=== PATIENT | female | born 1950 | race Caucasian/White ===

== ENCOUNTER → 2017-02-07 | Outpatient (CLI) | payer MEDICARE, BC ==
[2017-02-07 09:47] LABS: Bilirubin, Delta 0.2 mg/dL (0.0-0.2); Total Bilirubin 0.4 mg/dL (0.2-1.3); Total Protein 7.2 g/dL (6.3-8.2)
== END | disposition home or self-care (01) ==
LOC: LABWHC1 09:19
PROVIDERS: ATTEND Internal Medicine Interventional Cardiology
DX: E78.2 Mixed hyperlipidemia (principal)
CPT/HCPCS: 36415; 80061; 80076

== ENCOUNTER → 2017-02-26 | Outpatient (CLI) | payer MEDICARE, BC ==
--- NOTE | 2017-02-27 07:52 | MM ---
Reason for exam: screening (asymptomatic). Last mammogram was performed 1 year ago. History: Patient is postmenopausal. Took estrogen for 1 year 5 months beginning at age 54. Took progesterone for 1 year 5 months beginning at age 54. Physical Findings: A clinical breast exam by your physician is recommended on an annual basis and results should be correlated with mammographic findings. MG 3D Screening Mammo W/Cad Bilateral CC and MLO view(s) were taken. Prior study comparison: February 26, 2016, bilateral MG screening mammo w CAD. February 21, 2015, bilateral MG screening mammo w CAD. There are scattered fibroglandular densities. There is no discrete abnormality. No significant changes when compared with prior studies. ASSESSMENT: Negative, BI-RAD 1 RECOMMENDATION: Routine screening mammogram of both breasts in 1 year.
== END | disposition home or self-care (01) ==
LOC: RADMAMWWP 08:27
PROVIDERS: ATTEND Obstetrics & Gynecology
DX: Z12.31 Encounter for screening mammogram for malignant neoplasm of breast (principal)
CPT/HCPCS: 77063; G0202

== ENCOUNTER → 2017-08-01 | Outpatient (CLI) | payer MEDICARE, BC ==
[2017-08-01 08:37] LABS: Basophils % (A) 1 %; Eosinophils # (A) 0.2 k/uL (0-0.7); Eosinophils % (A) 3 %; HCT 43.7 % (34.0-46.0); HGB 14.3 gm/dL (11.4-16.0); Lymphocytes # (A) 2.5 k/uL (1.0-4.8); Lymphocytes % (A) 42 %; MCH 30.9 pg (25.0-35.0); MCHC 32.7 g/dL (31.0-37.0); MCV 94.7 fL (80.0-100.0); Mean Platelet Volume 6.7; Monocytes # (A) 0.3 k/uL (0-1.0); Monocytes % (A) 6 %; Neutrophils # (A) 2.8 k/uL (1.3-7.7); Neutrophils % (A) 46 %; Platelet Count 319 k/uL (150-450); RBC 4.62 m/uL (3.80-5.40); RDW 12.3 % (11.5-15.5); WBC 5.9 k/uL (3.8-10.6)
[2017-08-01 08:50] LABS: ALT 34 U/L (9-52); AST 32 U/L (14-36); Albumin 4.3 g/dL (3.5-5.0); Alkaline Phosphatase 80 U/L (38-126); Anion Gap 8 mmol/L; Blood Urea Nitrogen 16 mg/dL (7-17); Calcium 10.1 mg/dL (8.4-10.2); Carbon Dioxide 31 mmol/L (22-30); Chloride 105 mmol/L (98-107); Cholesterol 165 mg/dL (<200); Creatine Kinase 123 U/L (30-135); Glucose 86 mg/dL (74-99); HDL Cholesterol 63 mg/dL (40-60); LDL Cholesterol,Calculated 81 mg/dL (0-99); Potassium 5.2 mmol/L (3.5-5.1); Sodium 144 mmol/L (137-145); Total Bilirubin 0.8 mg/dL (0.2-1.3); Total Protein 6.8 g/dL (6.3-8.2); Triglycerides 106 mg/dL (<150)
== END | disposition home or self-care (01) ==
LOC: LABWHC1 07:23
PROVIDERS: ATTEND Family Medicine
DX: E78.5 Hyperlipidemia, unspecified (principal)
CPT/HCPCS: 36415; 80053; 80061; 82550; 85025

== ENCOUNTER → 2017-09-11 | Outpatient (CLI) | payer MEDICARE, BC ==
--- NOTE | 2017-09-16 10:13 | P.ARTDOP ---
Arterial Doppler LOWER EXTREMITY ARTERIAL DOPPLER: DATE OF SERVICE: 09/11/2017 Reason for study: Left leg pain. Doppler waveforms: Multiphasic bilaterally throughout. Pulse volume recording: []. Pressure gradients: None. Ankle-brachial indices: Greater than 1 bilaterally. Toe pressures: 64 on the right, 62 on the left Impression: Normal study.. Decrease in toe pressures is mild and probably related more to vasospasm.
== END | disposition home or self-care (01) ==
LOC: RADUSWWP 11:52
PROVIDERS: ATTEND Family Medicine
DX: M79.672 Pain in left foot (principal); R25.2 Cramp and spasm
CPT/HCPCS: 93922

== ENCOUNTER → 2018-02-10 | Outpatient (CLI) | payer MEDICARE, BC ==
--- NOTE | 2018-02-10 09:49 | US ---
EXAMINATION TYPE: US pelvic complete DATE OF EXAM: 02/10/2018 COMPARISON: None CLINICAL HISTORY: 68-year-old female R31.9 hematuria; recurrent UTI; total hysterectomy TECHNIQUE: Transabdominal sonographic images of the pelvis were acquired. Findings: Uterus surgically absent. Both ovaries are also surgically absent. No pelvic free fluid or adnexal ab normality. Bladder: appears wnl fully distended. Bilateral ureteral jets were seen. Post void volume is wnl at 1 2.6ml. IMPRESSION: 1. Status post hysterectomy and bilateral oophorectomies. 2. Normal appearance to the bladder. Both ureteral jets are seen. 3. Small amount of post void residual bladder volume (13 mL) which is within acceptable limits.
--- NOTE | 2018-02-10 11:14 | US ---
EXAMINATION TYPE: US kidneys/renal and bladder DATE OF EXAM: 02/10/2018 COMPARISON: None CLINICAL HISTORY: 68-year-old female R31.9 hematuria; recurrent UTI. Bladder was assessed on pelvic US. TECHNIQUE: Multiple sonographic images of the kidneys kidneys are obtained. FINDINGS: EXAM MEASUREMENTS: Right Kidney: 10.8 x 4.2 x 3.3 cm Left Kidney: 9.5 x 5.4 x 4.1 cm Right Kidney: Mild pelviectasis versus extrarenal pelvis. Left Kidney: Mild pelviectasis versus extrarenal pelvis. No jennifer calyceal dilatation to suggest hydronephrosis on either side. Bladder was evaluated on the pelvic exam. IMPRESSION: No jennifer hydronephrosis. There is mild pelviectasis versus an extrarenal pelvis on either side.
== END | disposition home or self-care (01) ==
LOC: RADUSWWP 07:04
PROVIDERS: ATTEND Family Medicine
DX: R31.9 Hematuria, unspecified (principal); Z90.710 Acquired absence of both cervix and uterus; Z90.722 Acquired absence of ovaries, bilateral
CPT/HCPCS: 76770; 76857

== ENCOUNTER → 2018-02-27 | Outpatient (CLI) | payer MEDICARE, BC ==
--- NOTE | 2018-02-27 19:37 | BD ---
EXAMINATION TYPE: Axial Bone Density DATE OF EXAM: 02/27/2018 CLINICAL HISTORY: Height: 65.25 Weight: 128 FRAX RISK QUESTIONS: Alcohol (3 or more units per day): no Family History (Parent hip fracture): yes, mother Glucocorticoids (More than 3mos): no (Ex: prednisone, prednisolone, methylprednisolone, dexamethasone, and hydrocortisone). History of Fracture in Adulthood: yes, lower leg Secondary Osteoporosis: 1. Type 1 Diabetes: no 2. Hyperthyroidism: no 3. Menopause before 45: no, 49 4. Malnutrition: no 5. Chronic liver disease: no Rheumatoid Arthritis: no Current Tobacco Use: infrequently RISK FACTORS HISTORY OF: Family History of Osteoporosis: yes Active: yes Diet low in dairy products/other sources of calcium: no Postmenopausal woman: yes Take estrogen and/or progesterone medications: no now How long: about 18 months Lost more than 2 inches in height since high school: yes, states height once may have been about 5ft 10 in Frequent falls: no Poor Health: no Hyperparathyroidism: no Adrenal Insufficiency: no MEDICATIONS: Prednisone or other steroids: no Thyroid Medications: no Osteoporosis Medications: not now Which medication: patient thinks may have had a med for this as an injection How Long: unsure Additional Medications: cholesterol meds, sometimes Vitamin D Additional History: weight loss EXAM MEASUREMENTS: Bone mineral densitometry was performed using the [employer] System. Bone mineral density as measured about the Lumbar spine is: ----- L1-L4(G/cm2): 1.198 T Score Values are as follows: ----- L2: -0.7 ----- L3: 0.9 ----- L4: 1.2 ----- L1-L4: 0.1 Bone mineral density has: Increased 0.4% since study of: 02/26/2016 Bone mineral density about the R hip (g/cm2): 0.783 Bone mineral density about the L hip (g/cm2): 0.823 T Score values are as follows: -----R Neck: -1.8 -----L Neck: -1.5 -----R Total: -1.4 -----L Total: -1.4 Bone mineral density has: Decreased -3.5% since study of: 02/26/2016 IMPRESSION: Osteopenia (T Score between -2.5 and -1). There is slightly increased risk of fracture and the patient may be considered for treatment. Re-Screen 2-5 years. NOTE: T-SCORE=SD OF THE YOUNG ADULT MEAN.
--- NOTE | 2018-03-02 11:42 | MM ---
Reason for exam: screening (asymptomatic). Last mammogram was performed 1 year ago. History: Patient is postmenopausal. Took estrogen for 1 year 5 months beginning at age 54. Took progesterone for 1 year 5 months beginning at age 54. Physical Findings: A clinical breast exam by your physician is recommended on an annual basis and results should be correlated with mammographic findings. MG 3D Screening Mammo W/Cad Bilateral CC and MLO view(s) were taken. Prior study comparison: February 26, 2017, bilateral MG 3d screening mammo w/cad. February 26, 2016, bilateral MG screening mammo w CAD. The breast tissue is heterogeneously dense. This may lower the sensitivity of mammography. No significant changes when compared with prior studies. ASSESSMENT: Benign, BI-RAD 2 RECOMMENDATION: Routine screening mammogram of both breasts in 1 year.
== END ==
LOC: RADMAMWWP 06:53
PROVIDERS: ATTEND Obstetrics & Gynecology
DX: Z12.31 Encounter for screening mammogram for malignant neoplasm of breast (principal); M85.80 Other specified disorders of bone density and structure, unspecified site
CPT/HCPCS: 77063; 77067; 77080

== ENCOUNTER → 2018-03-27 | Outpatient (CLI) | payer MEDICARE, BC ==
--- NOTE | 2018-03-30 09:26 | US ---
EXAMINATION TYPE: US venous doppler duplex LE LT DATE OF EXAM: 03/27/2018 12:16 PM COMPARISON: NONE CLINICAL HISTORY: R60.0 Localized edema. Elevated D Dimer SIDE PERFORMED: Left TECHNIQUE: The lower extremity deep venous system is examined utilizing real time linear array sonog omega with graded compression, doppler sonography and color-flow sonography. VESSELS IMAGED: External Iliac Vein (EIV) Common Femoral Vein Deep Femoral Vein Greater Saphenous Vein * Femoral Vein Popliteal Vein Small Saphenous Vein * Proximal Calf Veins (* superficial vessels Left Leg: Negative for DVT No evidence of DVT left leg. IMPRESSION: 1. Left lower extremity ultrasound negative for deep venous thrombosis.
== END | disposition home or self-care (01) ==
LOC: RADUSWWP 11:50
PROVIDERS: ATTEND Family Medicine
DX: R60.0 Localized edema (principal)

== ENCOUNTER → 2019-03-01 | Outpatient (CLI) | payer MEDICARE, BC ==
--- NOTE | 2019-03-02 11:55 | MM ---
Reason for exam: screening (asymptomatic). Last mammogram was performed 1 year ago. History: Patient is postmenopausal. Took estrogen for 1 year 5 months beginning at age 54. Took progesterone for 1 year 5 months beginning at age 54. Physical Findings: A clinical breast exam by your physician is recommended on an annual basis and results should be correlated with mammographic findings. MG 3D Screening Mammo W/Cad Bilateral CC and MLO view(s) were taken. Prior study comparison: February 27, 2018, bilateral MG 3d screening mammo w/cad. February 26, 2017, bilateral MG 3d screening mammo w/cad. The breast tissue is heterogeneously dense. This may lower the sensitivity of mammography. Finding: There is a 9 mm obscured oval mass located 5 cm from the nipple in the middle, subareolar position of the right breast. New finding since February 27, 2018 and February 26, 2017. ASSESSMENT: Incomplete: need additional imaging evaluation, BI-RAD 0 RECOMMENDATION: Ultrasound of the right breast. [facility] will attempt to contact patient to return for ultrasound.
== END | disposition home or self-care (01) ==
LOC: RADMAMWWP 07:44
PROVIDERS: ATTEND Obstetrics & Gynecology
DX: Z12.31 Encounter for screening mammogram for malignant neoplasm of breast (principal)
CPT/HCPCS: 77063; 77067

== ENCOUNTER → 2019-03-01 | Outpatient (CLI) | payer MEDICARE, BC ==
--- NOTE | 2019-03-01 13:29 | ECHOS ---
STRESS ECHOCARDIOGRAM DATE OF SERVICE: 03/01/2019 INDICATIONS: Dyspnea. MEDICATIONS: BASELINE HEART RATE: 54 BASELINE BLOOD PRESSURE: 89/58 MAXIMUM HEART RATE: 145 MAXIMUM BLOOD PRESSURE: 160/60 85% MPHR: 130 100% MPHR: 153 METS: 10.3 MAXIMUM STAGE REACHED: III TOTAL EXERCISE TIME: 9 minutes CLINICAL INFORMATION: Baseline rhythm is sinus mechanism, rate of 54, normal axis, intervals, normal electrocardiogram. Baseline blood pressure 94/58 mmHg. Patient exercised on Jaime protocol for 9 minutes reaching peak rate 145 beats per minute which is equal to 94% maximum predicted heart rate. Peak blood pressure 160/60 mmHg. Test was terminated secondary to fatigue. There was no chest pain. Electrocardiograph monitoring revealed occasional single PVCs. There was no evidence of diagnostic ischemic ST deviation. Baseline echocardiogram revealed normal wall thickening and motion. At peak exercise, there was normal wall motion augmentation with no hypokinesis or dyskinesis. CONCLUSION: 1. Good exercise tolerance with occasional single PVCs and normal electrocardiograph response to exercise. 2. Normal stress echocardiogram with no evidence of stress-induced ischemia. MMODL / IJN: [id number] /
== END | disposition home or self-care (01) ==
LOC: RADNMMAIN 08:10
PROVIDERS: ATTEND Family Medicine
DX: R06.00 Dyspnea, unspecified (principal)
CPT/HCPCS: 93351

== ENCOUNTER → 2019-03-10 | Outpatient (CLI) | payer MEDICARE, BC ==
--- NOTE | 2019-03-10 08:05 | USB ---
Reason for exam: additional evaluation requested from abnormal screening. History: Patient is postmenopausal. Took estrogen for 1 year 5 months beginning at age 54. Took progesterone for 1 year 5 months beginning at age 54. Physical Findings: Nurse did not find any significant physical abnormalities on exam. US Breast Workup Limited RT Right limited breast ultrasound including focal area of concern, retroareolar and axilla demonstrates a 0.6 x 0.6 x 0.3cm cystic lesion at 5 o'clock, a 0.3 x 0.4 x 0.3cm cystic lesion with calcification at 6 o'clock and ductal ectasia at 8 o'clock. These results were verbally communicated with the patient and result sheet given to the patient on 03/10/19. ASSESSMENT: Benign, BI-RAD 2 RECOMMENDATION: Return to routine screening mammogram schedule for both breasts.
== END | disposition home or self-care (01) ==
LOC: RADUSWWP 06:54
PROVIDERS: ATTEND Obstetrics & Gynecology
DX: R92.8 Other abnormal and inconclusive findings on diagnostic imaging of breast (principal)

== ENCOUNTER → 2019-11-02 | Outpatient (CLI) | payer MEDICARE, BC ==
--- NOTE | 2019-11-02 16:31 | US ---
EXAMINATION TYPE: US pelvis limited transvag DATE OF EXAM: 11/02/2019 COMPARISON: NONE CLINICAL HISTORY: R10.2 Pelvic perineial pain. TECHNIQUE: Transvaginal (TV) and Transabdominal (TA) . Date of LMP: Patient had complete hysterectomy/bilateral oopherectomy EXAM MEASUREMENTS: Uterus: Surgically absent Endometrial Stripe: Surgically absent Right Ovary: Surgically absent Left Ovary: Surgically absent Urinary bladder is sonolucent. Posterior wall is normal. IMPRESSION: 1. Postsurgical pelvic ultrasound. No unusual masses or collections are evident.
== END | disposition home or self-care (01) ==
LOC: RADUSWWP 14:43
PROVIDERS: ATTEND Internal Medicine
DX: Z98.890 Other specified postprocedural states (principal)
CPT/HCPCS: 76830; 76857

== ENCOUNTER 2019-12-05 08:43 | Emergency (ER) | payer MEDICARE, BC ==
[2019-12-05] MEDS ORDERED: ETODOLAC 400 MG TAB PO STA (09:53)
--- NOTE | 2019-12-05 10:02 | ED ---
Headache HPI - General Chief Complaint: Headache Stated Complaint: Neck pain Time Seen by Provider: 12/05/19 09:05 Source: patient, RN notes reviewed Mode of arrival: wheelchair Limitations: no limitations - History of Present Illness Initial Comments: This is a 69-year-old female who states she's had a headache and right neck pain for last day or so. 8/10 in severity spasm like she is not recall any injury or heavy lifting. She has no blurry vision no fevers chills or sweats. No loss of function to her upper or lower extremities no other modifying factors. No overt fevers chills sweats no rhinorrhea sore throat she states the pain radiates up to her head on the right side round the right ear. MD Complaint: headache, other - Related Data Home Medications Medication Instructions Recorded Confirmed Omeprazole 20 mg PO DAILY 12/25/15 12/25/15 Previous Rx's Medication Instructions Recorded Ketorolac [Toradol] 10 mg PO Q6HR #20 tab 12/05/19 Orphenadrine [Norflex] 100 mg PO Q12H #7 tablet.er 12/05/19 Allergies Allergy/AdvReac Type Severity Reaction Status Date / Time erythromycin base Allergy Rash/Hives Verified 12/05/19 08:53 nitrofurantoin Allergy Rash/Hives Verified 12/05/19 08:53 [From Macrobid] nitrofurantoin Allergy Rash/Hives Verified 12/05/19 08:53 macrocrystalline [From Macrobid] Sulfa (Sulfonamide Allergy Rash/Hives Verified 12/05/19 08:53 Antibiotics) Review of Systems ROS Statement: Those systems with pertinent positive or pertinent negative responses have been documented in the HPI. ROS Other: All systems not noted in ROS Statement are negative. Past Medical History Past Medical History: GERD/Reflux, Hyperlipidemia Additional Past Medical History / Comment(s): back pain History of Any Multi-Drug Resistant Organisms: None Reported Past Surgical History: Appendectomy, Hysterectomy, Tonsillectomy Additional Past Surgical History / Comment(s): rectocele Past Psychological History: No Psychological Hx Reported Smoking Status: Never smoker Past Alcohol Use History: None Reported Past Drug Use History: None Reported General Exam - General Exam Comments Initial Comments: This a well-developed well-nourished awake alert oriented 3 Limitations: no limitations General appearance: alert, anxious Head exam: Present: atraumatic, normocephalic, normal inspection Eye exam: Present: normal appearance, PERRL, EOMI. Absent: scleral icterus, conjunctival injection, periorbital swelling ENT exam: Present: normal exam, mucous membranes moist Neck exam: Present: normal inspection, tenderness, other (Tenderness palpation of the lateral neck musculature and trapezius muscle. Palpation does reproduce the pain is somewhat limited motion secondary to pain.). Absent: meningismus, lymphadenopathy Respiratory exam: Present: normal lung sounds bilaterally. Absent: respiratory distress, wheezes, rales, rhonchi, stridor Cardiovascular Exam: Present: regular rate, normal rhythm, normal heart sounds. Absent: systolic murmur, diastolic murmur, rubs, gallop, clicks Extremities exam: Present: normal inspection, full ROM, normal capillary refill. Absent: tenderness, pedal edema, joint swelling, calf tenderness Back exam: Present: normal inspection Neurological exam: Present: alert, oriented X3, CN II-XII intact Skin exam: Present: warm, dry, intact, normal color. Absent: rash Course Vital Signs 12/05/19 08:50 Temperature 99.1 F Pulse Rate 74 Respiratory 18 Rate Blood Pressure 127/78 O2 Sat by Pulse 100 Oximetry Medical Decision Making - Medical Decision Making No further workup indicated this time patient will be discharged on a regimen of NSAIDs and muscle relaxers I did recommend warm compresses. He'll follow-up with her doctor as needed and return when necessary she is in agreement with this. Disposition Clinical Impression: Trapezius muscle spasm Disposition: HOME SELF-CARE Condition: Good Instructions (If sedation given, give patient instructions): Muscle Spasm (ED) Additional Instructions: Medication prescriptions sent to your preferred pharmacy Prescriptions: Orphenadrine [Norflex] 100 mg PO Q12H #7 tablet.er Ketorolac [Toradol] 10 mg PO Q6HR #20 tab Is patient prescribed a controlled substance at d/c from ED?: No Referrals: Benjamin Cotter MD [Primary Care Provider] - 1-2 days
[2019-12-05 10:33] VITALS: BP 149/74; PULSE 67; RESP 16; TEMP 98.2
== END 2019-12-05 10:31 | disposition home or self-care (01) ==
LOC: EC 08:43
DX: M62.838 Other muscle spasm (principal); K21.9 Gastro-esophageal reflux disease without esophagitis; Z79.899 Other long term (current) drug therapy; Z88.2 Allergy status to sulfonamides; Z88.1 Allergy status to other antibiotic agents; Z88.8 Allergy status to other drugs, medicaments and biological substances
CPT/HCPCS: 99283

== ENCOUNTER → 2019-12-10 | Outpatient (CLI) | payer MEDICARE, BC ==
[2019-12-10 10:28] LABS: African American GFR (CKD) >90 (>60 ml/min/1.73 sqM); Blood Urea Nitrogen 12 mg/dL (7-17); Non-African American GFR(CKD) >90 (>60 ml/min/1.73 sqM)
--- NOTE | 2019-12-10 11:55 | CT ---
EXAMINATION TYPE: CT abdomen pelvis w con DATE OF EXAM: 12/10/2019 COMPARISON: 07/13/2010 HISTORY: Pelvic pain with frequent UTIs CT DLP: 1002 mGycm CONTRAST: CT scan of the abdomen and pelvis is performed with Oral Contrast and with IV Contrast, patient injec obey with 100 mL of Isovue 300. FINDINGS: LUNG BASES-: No visible nodule. No infiltrate. LIVER/GB: No calcified gallstones. No space occupying hepatic lesion. Biliary tree is of normal ca liber. PANCREAS: No inflammation. No distinct mass. SPLEEN: No splenic enlargement. No lesion seen. ADRENALS: No nodule. No thickening. KIDNEYS/BLADDER: No hydronephrosis. No nephrolithiasis. No distinct renal mass. Urinary bladder g rossly unremarkable. BOWEL: Normal appendix. Normal bowel caliber. No inflammation. GENITAL ORGANS: No gross abnormality. LYMPH NODES: No greater than 1cm abdominal or pelvic lymph nodes are appreciated. AORTA: No significant abnormality. OSSEOUS STRUCTURES: Severe degenerative change lumbar spine scoliosis noted. OTHER: No significant a dditional abnormality is seen. IMPRESSION: 1. Moderate fecal stasis otherwise unremarkable study. Hysterectomy changes seen.
== END | disposition home or self-care (01) ==
LOC: RADCTMAIN 09:36
PROVIDERS: ATTEND Family Medicine
DX: K59.8 Other specified functional intestinal disorders (principal); Z98.890 Other specified postprocedural states; R10.2 Pelvic and perineal pain
CPT/HCPCS: 82565; 84520; 74177; 36415; Q9967

== ENCOUNTER → 2020-03-06 | Outpatient (CLI) | payer MEDICARE, BC ==
--- NOTE | 2020-03-07 11:52 | MM ---
Reason for exam: screening (asymptomatic). Last mammogram was performed 1 year ago. History: Patient is postmenopausal. Took estrogen for 1 year 5 months beginning at age 54. Took progesterone for 1 year 5 months beginning at age 54. Physical Findings: A clinical breast exam by your physician is recommended on an annual basis and results should be correlated with mammographic findings. MG 3D Screening Mammo W/Cad Bilateral CC and MLO view(s) were taken. Prior study comparison: March 01, 2019, bilateral MG 3d screening mammo w/cad. February 27, 2018, bilateral MG 3d screening mammo w/cad. The breast tissue is heterogeneously dense. This may lower the sensitivity of mammography. Benign appearing calcifications in the right breast. There are grouped indeterminate calcifications right subareolar. ASSESSMENT: Incomplete: need additional imaging evaluation, BI-RAD 0 RECOMMENDATION: Special view mammogram of the right breast. [facility] will attempt to contact patient to return for supplemental views.
== END | disposition home or self-care (01) ==
LOC: RADMAMWWP 08:03
PROVIDERS: ATTEND Family Medicine
DX: Z12.31 Encounter for screening mammogram for malignant neoplasm of breast (principal)
CPT/HCPCS: 77063; 77067

== ENCOUNTER → 2020-03-24 | Outpatient (CLI) | payer MEDICARE, BC ==
--- NOTE | 2020-03-27 10:20 | MM ---
Reason for exam: additional evaluation requested from abnormal screening. Last mammogram was performed 1 month ago. History: Patient is postmenopausal. Took estrogen for 1 year 5 months beginning at age 54. Took progesterone for 1 year 5 months beginning at age 54. Physical Findings: Nurse did not find any significant physical abnormalities on exam. MG 3D Work Up W/Cad RT CC with magnification, LM with magnification, and LM view(s) were taken of the right breast. Prior study comparison: March 06, 2020, bilateral MG 3d screening mammo w/cad. March 01, 2019, bilateral MG 3d screening mammo w/cad. Finding: There is a 8 mm oval mass in the slight lower outer quadrant, anterior position of the right breast with group of heterogeneous calcifications persists on additional images. These results were verbally communicated with the patient and result sheet given to the patient on 03/24/20. ASSESSMENT: Suspicious, BI-RAD 4 RECOMMENDATION: Stereotactic core biopsy of the right breast. Called Dr. Cotter's office with mammographic findings. Patient request to speak with Dr. Cotter before scheduling any biopsy. Patient wanted to scheduled own appointment with Dr. Cotter. PRELIMINARY REPORT CALLED AND FAXED TO DR. COTTER ON 03/24/20.
== END | disposition home or self-care (01) ==
LOC: RADMAMWWP 09:35
PROVIDERS: ATTEND Family Medicine
DX: R92.8 Other abnormal and inconclusive findings on diagnostic imaging of breast (principal)
CPT/HCPCS: 77065; G0279; 77061

== ENCOUNTER → 2020-04-12 | Day surgery (SDC) | payer MEDICARE, BC ==
[2020-04-12 09:12] VITALS: BP 113/72; PULSE 61; RESP 18; TEMP 97.7
--- NOTE | 2020-04-12 14:31 | MM ---
EXAMINATION TYPE: MG stereo VAD BX RT DATE OF EXAM: 04/03/2020 COMPARISON: 02/26/2016 CLINICAL HISTORY: Abnormal mammogram TECHNIQUE: Stereotactic guided core biopsy of right breast. FINDINGS: The procedure of stereotactic guided core biopsy was explained to the patient. Benefits, alternatives, and risks were discussed. An informed consent was then obtained. The shortness pathway for biopsy was chosen. Shortness pathway was lateral approach. Radiology performed the targeting and procedure. 5 core biopsies were obtained. Sample: Mammographic sample demonstrates calcifications within the sample. Surgical clip was placed. Good hemostasis was obtained. Discharge instructions were discussed with the patient. The patient will follow-up with her physician for biopsy results. Postprocedure mammogram: Post biopsy mammogram shows the clip to appear in satisfactory position relative to the targeted area of concern on the preprocedure images. IMPRESSION: 1. Successful stereotactic core biopsy right breast calcifications. Recommendations: 1. Recommendations are pending pathology results. Pathology Results: High Risk RIGHT BREAST, NEEDLE CORE BIOPSY: Intraductal papillomatosis with apocrine metaplasia. Focal microscopic intraductal calcifications are identified. Recommendation Surgical consult of the right breast. SKY
== END ==
LOC: RADMAMWWP 07:10
PROVIDERS: ATTEND Family Medicine
DX: N60.11 Diffuse cystic mastopathy of right breast (principal); N60.81 Other benign mammary dysplasias of right breast
CPT/HCPCS: 88305; 19081; A4648

== ENCOUNTER → 2020-07-06 | Outpatient (CLI) | payer MEDICARE, BC ==
[2020-07-06 17:04] LABS: African American GFR (CKD) 87.8 (60.0-200.0); Albumin 4.8 g/dL (3.80-4.90); Albumin/Globulin Ratio 2.82 (1.60-3.17); Anion Gap 9.4 mmol/L (4.00-12.00); BUN/Creat Ratio 16.25 Ratio (12.00-20.00); Calcium 9.9 mg/dL (8.7-10.3); Carbon Dioxide 27.6 mmol/L (21.6-31.8); Chol/HDL Ratio 2.84; Globulin 1.7 g/dL (1.6-3.3); Non-African American GFR(CKD) 75.8 (60.0-200.0); Potassium 4.4 mmol/L (3.5-5.5); Total Bilirubin 0.8 mg/dL (0.2-1.2); Total Protein 6.5 g/dL (6.2-8.2)
[2020-07-06 19:29] LABS: Hemoglobin A1C 5.6 % (4.0-6.0)
== END | disposition home or self-care (01) ==
LOC: LABWHC1 08:54
PROVIDERS: ATTEND Family Medicine
DX: E78.5 Hyperlipidemia, unspecified (principal); R10.9 Unspecified abdominal pain
CPT/HCPCS: 36415; 80053; 80061; 82150; 83036; 83690; 85652

== ENCOUNTER → 2020-08-28 | Outpatient (CLI) | payer MEDICARE, BC ==
--- NOTE | 2020-08-29 08:35 | CT ---
EXAMINATION TYPE: CT abdomen pelvis wo con DATE OF EXAM: 08/28/2020 COMPARISON: 12/10/2019 INDICATION: hematuria DLP: 277.6 mGycm, Automated exposure control for dose reduction was used. CONTRAST: 0 mL of Isovue 300. Study performed without Oral Contrast TECHNIQUE: Axial images were obtained from above the diaphragm to the pubic rami in the axial plane a t 5 mm thick sections. Reconstructed images are reviewed on the computer in the coronal plane. FINDINGS: Limited CT sections are obtained the lung bases. Some minimal infiltrate is present in the posterior right lung base may be some compressive atelectasis.. CT ABDOMEN: Liver: Normal Spleen: Normal Pancreas: Normal Adrenal glands: The adrenal glands are normal. Gallbladder: Normal Kidneys: No masses are evident. No hydronephrosis is present. No cysts are present. No renal stone s are identified. Aorta: Vascular calcification is within the aorta. Inferior vena cava: Normal. CT PELVIS: Loops of bowel within the abdomen and pelvis are normal. This study is performed without oral con trast limiting bowel evaluation. Some fecal debris scattered throughout the colon. Appendix: Not identified. No suspicious dilated tubular structures or inflammatory changes are. Urinary bladder: Normal. Genitourinary structures: Uterus and ovaries are not identified. Osseous structures: No suspicious lytic or sclerotic lesions are evident. There is advanced degenerat nicolas disc changes L5-S1. Degenerative joint changes right sacroiliac joints. Facet degenerative change s are present within the lower lumbar spine. Some degenerative disc changes in the upper lumbar spine . IMPRESSIONS: 1. Mild fecal retention. 2. No suspicious abnormalities account for hematuria.1
== END ==
LOC: RADCTMAIN 17:32
PROVIDERS: ATTEND Nurse Practitioner Adult Health
DX: K56.41 Fecal impaction (principal)
CPT/HCPCS: 74176

== ENCOUNTER → 2020-10-24 | Outpatient (CLI) | payer MEDICARE, BC ==
--- NOTE | 2020-10-24 14:58 | US ---
EXAMINATION TYPE: US kidneys/renal and bladder DATE OF EXAM: 10/24/2020 COMPARISON: NONE CLINICAL HISTORY: R34 Anuria and oliguria. Bladder infection EXAM MEASUREMENTS: Right Kidney: 9.8 x 3.8 x 3.7 cm Left Kidney: 7.8 x 4.5 x 3.5 cm Right Kidney: No hydronephrosis or masses seen Left Kidney: Limted due to bowel gas Bladder: Not fully distended Bilateral Jets seen: No No hydronephrosis or nephrolithiasis as visualized. Bladder limited by incomplete distention. IMPRESSION: 1. Limited assessment left kidney due to bowel gas. Right kidney demonstrates no hydronephrosis or ne phrolithiasis
== END | disposition home or self-care (01) ==
LOC: RADUSWWP 14:12
PROVIDERS: ATTEND Family Medicine
DX: N30.90 Cystitis, unspecified without hematuria (principal)
CPT/HCPCS: 76770

== ENCOUNTER → 2020-11-06 | Outpatient (CLI) | payer MEDICARE, BC ==
--- NOTE | 2020-11-06 10:12 | US ---
EXAMINATION TYPE: US gallbladder DATE OF EXAM: 11/06/2020 COMPARISON: CT & US 2020 CLINICAL HISTORY: R10.13 Dyspepsia. Intermittent RUQ pain, indigestion and N/V x 1 year, gets worse a fter eating EXAM MEASUREMENTS: Liver Length: 14.6 cm Gallbladder Wall: 0.2 cm CBD: 0.8 cm Right Kidney: 10.3 x 3.5 x 4.3 cm Pancreas: wnl Liver: wnl Gallbladder: wnl Evidence for sonographic Rivas's sign: no CBD: dilated approximately 8 mm. Right Kidney: wnl IMPRESSION: 1. The common duct is dilated measuring approximately 8 mm. The pancreatic duct is minimally prominen t but within normal limits measuring 2.3 mm. An MRCP would be helpful for underlying lesion or mass. 2. No hydronephrosis. 3. No gallstones.
== END | disposition home or self-care (01) ==
LOC: RADUSWWP 07:14
PROVIDERS: ATTEND Internal Medicine
DX: K83.8 Other specified diseases of biliary tract (principal)
CPT/HCPCS: 76705

== ENCOUNTER 2020-12-02 10:01 | Emergency (ER) | payer MEDICARE, BC ==
[2020-12-02] MEDS ORDERED: KETOROLAC 15 MG/ML 1 ML VIAL IM STA (10:22)
--- NOTE | 2020-12-02 10:35 | ED ---
General Adult HPI - General Chief complaint: Abdominal Pain Stated complaint: UTI Time Seen by Provider: 12/02/20 10:10 Source: patient, RN notes reviewed Mode of arrival: ambulatory Limitations: no limitations - History of Present Illness Initial comments: 70-year-old female with a past medical history of GERD, hyperlipidemia presents to the emergency room for a chief complaint of dysuria. Patient reports that she has chronic urinary tract infections that come and go. She reports that she isn't seeing a urologist at [place] [facility] u[facility] and is supposed to also be following up with [place]. Patient reports that 3 days ago she started to have dysuria. States her doctor's office is closed and she wants to be checked for an infection. Patient states she also has blood in her urine. Patient reports that she has tried Pyridium in the past and it does not work. She denies fevers or chills. Denies abdominal or flank pain.Patient has no other complaints at this time including shortness of breath, chest pain, abdominal pain, nausea or vomiting, headache, or visual changes. - Related Data Home Medications Medication Instructions Recorded Confirmed Omeprazole 40 mg PO DAILY 12/25/15 04/12/20 ALPRAZolam [Xanax] 0.25 mg PO DAILY PRN 04/11/20 04/12/20 Aspirin [Adult Low Dose Aspirin EC] 81 mg PO DAILY 04/11/20 04/12/20 Atorvastatin [Lipitor] 20 mg PO HS 04/11/20 04/12/20 Ketorolac [Toradol] 10 mg PO Q6HR PRN 04/12/20 04/12/20 Previous Rx's Medication Instructions Recorded Cephalexin [Keflex] 500 mg PO Q6HR 10 Days #40 cap 12/02/20 Allergies Allergy/AdvReac Type Severity Reaction Status Date / Time erythromycin base Allergy Rash/Hives Verified 12/02/20 10:06 nitrofurantoin Allergy Rash/Hives Verified 12/02/20 10:06 [From Macrobid] nitrofurantoin Allergy Rash/Hives Verified 12/02/20 10:06 macrocrystalline [From Macrobid] Sulfa (Sulfonamide Allergy Rash/Hives Verified 12/02/20 10:06 Antibiotics) Review of Systems ROS Statement: Those systems with pertinent positive or pertinent negative responses have been documented in the HPI. ROS Other: All systems not noted in ROS Statement are negative. Past Medical History Past Medical History: GERD/Reflux, Hyperlipidemia Additional Past Medical History / Comment(s): back pain, IBS History of Any Multi-Drug Resistant Organisms: None Reported Past Surgical History: Appendectomy, Bladder Surgery, Hysterectomy, Tonsillectomy Additional Past Surgical History / Comment(s): rectocele Past Anesthesia/Blood Transfusion Reactions: No Reported Reaction Past Psychological History: Anxiety Smoking Status: Former smoker Past Alcohol Use History: Rare Past Drug Use History: None Reported General Exam Limitations: no limitations General appearance: alert, in no apparent distress Head exam: Present: atraumatic, normocephalic, normal inspection Eye exam: Present: normal appearance, PERRL, EOMI. Absent: scleral icterus, conjunctival injection, periorbital swelling ENT exam: Present: normal exam, mucous membranes moist Neck exam: Present: normal inspection. Absent: tenderness, meningismus, lymphadenopathy Respiratory exam: Present: normal lung sounds bilaterally. Absent: respiratory distress, wheezes, rales, rhonchi, stridor Cardiovascular Exam: Present: regular rate, normal rhythm, normal heart sounds. Absent: systolic murmur, diastolic murmur, rubs, gallop, clicks GI/Abdominal exam: Present: soft, normal bowel sounds. Absent: distended, ten derness, guarding, rebound, rigid Back exam: Absent: CVA tenderness (R), CVA tenderness (L) Course Vital Signs 12/02/20 10:03 Temperature 97.7 F Pulse Rate 81 Respiratory 20 Rate Blood Pressure 136/70 O2 Sat by Pulse 99 Oximetry Medical Decision Making - Medical Decision Making Vitals are stable. Patient does not have any abdominal tenderness. No CVA tenderness. Patient states this feels like a urinary tract infection which she has had several 4. States it hurts to urinate and she is urinating more frequently than normal. Patient does have a nitrite-positive urine with 182 white blood cells and white blood cell clumps. Patient does not have any previous urine cultures here. She does report that she is resistant to Cipro. She believes she has had Keflex in the past that has worked. We will start her on 4 times a day Keflex for 10 days. She was given a dose of Rocephin here in the emergency room. She will follow-up with her doctor soon as possible. She does see her urologist out of [place] and will touch base with them on Friday. She will return for any worsening symptoms. - Lab Data Lab Results 12/02/20 Range/Units 10:19 Urine Color Dark Yellow Urine Appearance Cloudy H (Clear) Urine pH 5.5 (5.0-8.0) Ur Specific [place] 1.018 (1.001-1.035) Urine Protein Trace H (Negative) Urine Glucose (UA) Negative (Negative) Urine Ketones Negative (Negative) Urine Blood Moderate H (Negative) Urine Nitrite Positive H (Negative) Urine Bilirubin Negative (Negative) Urine Urobilinogen <2.0 (<2.0) mg/dL Ur Leukocyte Esterase Large H (Negative) Urine RBC 25 H (0-5) /hpf Urine WBC >182 H (0-5) /hpf Urine WBC Clumps Moderate H (None) /hpf Ur Squamous Epith Cells 2 (0-4) /hpf Urine Bacteria Many H (None) /hpf Urine Mucus Rare H (None) /hpf Disposition Clinical Impression: UTI (urinary tract infection) Disposition: HOME SELF-CARE Condition: Good Instructions (If sedation given, give patient instructions): Urinary Tract Infection in Women (ED) Additional Instructions: Please take antibiotic as directed. Follow up on culture results in the next 2- 3 days. Follow-up with your doctor. Take Motrin and Tylenol for pain. If pain is severe take Tylenol [address] operate machinery while taking this. Return to the emergency room for any worsening symptoms. Prescriptions: Cephalexin [Keflex] 500 mg PO Q6HR 10 Days #40 cap Is patient prescribed a controlled substance at d/c from ED?: No Referrals: Benjamin Cotter MD [Primary Care Provider] - 1-2 days Time of Disposition: 11:07
[2020-12-02 10:50] LABS: Appearance,Urine Cloudy (Clear); Bacteria,Urine Many /hpf; Bilirubin,Urine Negative (Negative); Blood,Urine Moderate (Negative); Color,Urine Dark Yellow; Glucose,Urine (UA) Negative (Negative); Ketones,Urine Negative (Negative); Leukocyte Esterase,Urine Large (Negative); Mucus,Urine Rare /hpf; Nitrite,Urine Positive (Negative); PH, Urine 5.5 (5.0-8.0); Protein,Urine Trace (Negative); RBC,Urine 25 /hpf (0-5); Specific Gravity,Urine 1.018 (1.001-1.035); Squamous Epithelial Cell,Urine 2 /hpf (0-4); Urobilinogen,Urine <2.0 mg/dL (<2.0); WBC,Urine >182 /hpf (0-5)
[2020-12-02] MEDS ORDERED: CEPHALEXIN 500MG STARTER PACK 4 CAP BTL PO STA (11:07)
[2020-12-02] MEDS ORDERED: cefTRIAXone 1,000 MG VIAL (IM USE) IM STA (11:07)
[2020-12-02] MEDS ORDERED: ACET/COD 300 MG/30 MG STARTER PACK 6 TAB BTL PO STA (11:07)
[2020-12-02 11:29] VITALS: BP 120/70; PULSE 78; RESP 16; TEMP 97.8
== END 2020-12-02 11:27 | disposition home or self-care (01) ==
LOC: EC 10:01
DX: N39.0 Urinary tract infection, site not specified (principal); E78.5 Hyperlipidemia, unspecified; K21.9 Gastro-esophageal reflux disease without esophagitis; F41.9 Anxiety disorder, unspecified; Z79.82 Long term (current) use of aspirin; Z79.1 Long term (current) use of non-steroidal anti-inflammatories (NSAID); Z88.1 Allergy status to other antibiotic agents; Z88.2 Allergy status to sulfonamides; Z87.891 Personal history of nicotine dependence
CPT/HCPCS: 96372 ×3; 99283 ×2; 81001; 87086; 87077; 87186; J0696; J1885

== ENCOUNTER → 2021-01-05 | Outpatient (CLI) | payer MEDICARE, BC ==
--- NOTE | 2021-01-07 09:00 | XR ---
EXAMINATION TYPE: XR chest 2V DATE OF EXAM: 01/05/2021 COMPARISON: 12/25/2015 HISTORY: Shortness of breath TECHNIQUE: Frontal and lateral views of the chest are obtained. FINDINGS: Scattered senescent parenchymal changes noted. Hyperinflation compatible with COPD. No evidence for infiltrate. No evidence for atelectasis. Heart size is stable. Mediastinal structures are stable and grossly unremarkable. No evidence for hilar prominence. Degenerative changes dorsal spine. IMPRESSION: 1. No evidence for acute pulmonary disease.
== END | disposition home or self-care (01) ==
LOC: RADXRMAIN 15:54
PROVIDERS: ATTEND Internal Medicine
DX: R91.8 Other nonspecific abnormal finding of lung field (principal)
CPT/HCPCS: 71046

== ENCOUNTER → 2021-01-09 | Outpatient (CLI) | payer MEDICARE, BC ==
[2021-01-09 17:57] LABS: Albumin 4.2 g/dL (3.80-4.90); Albumin/Globulin Ratio 1.91 (1.60-3.17); Bilirubin, Conjugated 0.2 mg/dL (0.20-0.40); Bilirubin,Unconjugated 0.6 mg/dL; Chol/HDL Ratio 2.72; Globulin 2.2 g/dL (1.6-3.3); Total Bilirubin 0.8 mg/dL (0.2-1.2); Total Protein 6.4 g/dL (6.2-8.2)
== END | disposition home or self-care (01) ==
LOC: LABWHC1 07:55
PROVIDERS: ATTEND Internal Medicine Interventional Cardiology
DX: E78.2 Mixed hyperlipidemia (principal)
CPT/HCPCS: 36415; 80061; 80076

== ENCOUNTER → 2021-01-24 | Outpatient (CLI) | payer MEDICARE, BC ==
--- NOTE | 2021-01-24 15:33 | US ---
EXAMINATION TYPE: US carotid duplex BILAT DATE OF EXAM: 01/24/2021 COMPARISON: NONE CLINICAL HISTORY: I65.23 Bilateral carotid artery stenosis. EXAM MEASUREMENTS: RIGHT: Peak Systolic Velocity (PSV) cm/sec ----- Right CCA: 97.4 ----- Right ICA: 130.0 ----- Right ECA: 80.3 ICA/CCA ratio: 1.3 RIGHT: End Diastole cm/sec ----- Right CCA: 37.7 ----- Right ICA: 43.4 ----- Right ECA: 25.5 LEFT: Peak Systolic Velocity (PSV) cm/sec ----- Left CCA: 86.1 ----- Left ICA: 90.2 ----- Left ECA: 92.8 ICA/CCA ratio: 1.1 LEFT: End Diastole cm/sec ----- Left CCA: 31.6 ----- Left ICA: 51.8 ----- Left ECA: 32.6 VERTEBRALS (direction of flow): Right Vertebral: Antegrade Left Vertebral: Antegrade Rhythm: Normal Intimal thickening is present. Some atheromatous plaquing is present. IMPRESSION: 1. Moderate stenosis, between 50 and 69%, based on velocities within the right internal carotid arter y. Correlate with symptoms. NASCET criteria was used in interpretation of this exam? Criteria for Assigning % of Stenosis / Diameter reduction (Estimation based on the indirect measurements of the internal carotid artery velocities (ICA PSV). 1. Normal (no stenosis)=ICA PSV < 125 cm/s: ratio < 2.0: ICA EDV<40 cm/s. 2. Less than 50% stenosis=ICA PSV < 125 cm/s: ratio < 2.0: ICA EDV<40 cm/s. 3. 50 to 69% stenosis=ICA PSV of 125 to 230 cm/s: ration 2.0 ? 4.0: ICA EDV 40-100 cm/s. 4. Greater than 70% stenosis to near occlusion= ICA PSV > 230 cm/s: ratio > 4.0: ICA EDV > 100 cm/s. 5. Near occlusion= ICA PSV velocities may be low or undetectable: variable ratio and ICA EDV. 6. Total occlusion=unable to detect flow.
== END | disposition home or self-care (01) ==
LOC: RADUSWWP 14:44
PROVIDERS: ATTEND Internal Medicine
DX: I65.21 Occlusion and stenosis of right carotid artery (principal)
CPT/HCPCS: 93880

== ENCOUNTER 2021-02-10 15:52 | Emergency (ER) | payer MEDICARE, BC ==
[2021-02-10 16:00] VITALS: RESP 18; TEMP 98
[2021-02-10] MEDS ORDERED: ONDANSETRON 4 MG/2 ML VIAL IVP STA (16:29)
[2021-02-10] MEDS ORDERED: HYDROmorphone 0.5 MG/0.5 ML SYRINGE IVP STA (16:29)
[2021-02-10] MEDS ORDERED: SODIUM CHLORIDE 0.9% 1,000 ML IV STA (16:29)
[2021-02-10] MEDS ORDERED: FAMOTIDINE 20 MG/2 ML VIAL IV STA (16:31)
--- NOTE | 2021-02-10 16:33 | ED ---
General Adult HPI - General Chief complaint: Recheck/Abnormal Lab/Rx Stated complaint: Vomiting post ERCP Time Seen by Provider: 02/10/21 16:19 Source: patient, RN notes reviewed Mode of arrival: wheelchair Limitations: no limitations - History of Present Illness Initial comments: Patient is a pleasant 71-year-old female presenting to the emergency department with abdominal discomfort and nausea and vomiting. Patient did have ERCP done today which was reported to her as normal. This was done at [facility] with Dr. Rangel. Patient has been having episodes of discomfort right upper abdomen for months to years. Patient had had some question of studies with ultrasound and MRCP previously. Symptoms patient is having today is similar to her pre vious episodes however worse than normal. Patient does feel nauseated and did vomit more than once. No constipation or diarrhea. No fever. - Related Data Home Medications Medication Instructions Recorded Confirmed Aspirin [Adult Low Dose Aspirin EC] 81 mg PO DIRECTED 04/11/20 02/10/21 Atorvastatin [Lipitor] 20 mg PO HS 04/11/20 02/10/21 Ascorbic Acid [Vitamin C] 500 mg PO DAILY 02/10/21 02/10/21 Cholecalciferol [Vitamin D3 (25 25 mcg PO DAILY 02/10/21 02/10/21 Mcg = 1000 Iu)] Lactobacillus Acidophilus 1 cap PO DAILY 02/10/21 02/10/21 [Florajen Acidophilus] Pantoprazole Sodium [Protonix] 40 mg PO DAILY 02/10/21 02/10/21 Allergies Allergy/AdvReac Type Severity Reaction Status Date / Time erythromycin base Allergy Rash/Hives Verified 02/10/21 18:41 nitrofurantoin Allergy Rash/Hives Verified 02/10/21 18:41 [From Macrobid] nitrofurantoin Allergy Rash/Hives Verified 02/10/21 18:41 macrocrystalline [From Macrobid] Sulfa (Sulfonamide Allergy Rash/Hives Verified 02/10/21 18:41 Antibiotics) Review of Systems ROS Statement: Those systems with pertinent positive or pertinent negative responses have been documented in the HPI. ROS Other: All systems not noted in ROS Statement are negative. Constitutional: Denies: fever Eyes: Denies: eye pain ENT: Denies: ear pain Respiratory: Denies: cough Cardiovascular: Denies: chest pain Endocrine: Denies: fatigue Gastrointestinal: Reports: as per HPI, abdominal pain, nausea, vomiting. Denies: diarrhea, constipation Genitourinary: Reports: urgency Musculoskeletal: Denies: back pain Skin: Denies: rash Neurological: Denies: weakness Past Medical History Past Medical History: GERD/Reflux, Hyperlipidemia Additional Past Medical History / Comment(s): back pain, IBS History of Any Multi-Drug Resistant Organisms: None Reported Past Surgical History: Appendectomy, Bladder Surgery, Hysterectomy, Tonsillectomy Additional Past Surgical History / Comment(s): rectocele Past Anesthesia/Blood Transfusion Reactions: No Reported Reaction Past Psychological History: Anxiety Smoking Status: Former smoker Past Alcohol Use History: Rare Past Drug Use History: None Reported General Exam Limitations: no limitations General appearance: alert Head exam: Present: normocephalic Eye exam: Present: normal appearance Neck exam: Present: normal inspection Respiratory exam: Present: normal lung sounds bilaterally Cardiovascular Exam: Present: regular rate, normal rhythm GI/Abdominal exam: Present: soft, tenderness (Moderate diffuse tenderness), normal bowel sounds. Absent: distended, guarding, rebound, rigid, pulsatile mass Extremities exam: Present: normal inspection Neurological exam: Present: alert Psychiatric exam: Present: normal affect, normal mood Skin exam: Present: normal color Course Vital Signs 02/10/21 02/10/21 02/10/21 15:56 17:59 19:02 Temperature 98 F Pulse Rate 95 78 60 Respiratory 18 18 18 Rate Blood Pressure 149/97 120/67 109/69 O2 Sat by Pulse 93 L 98 98 Oximetry Medical Decision Making - Medical Decision Making Case discussed twice with Dr. Nye who does recommend transfer secondary to limited GI coverage. Case was also discussed with Dr. Masters at [facility] will accept transfer. - Lab Data Result diagrams: 02/10/21 16:44 02/10/21 16:44 Lab Results 02/10/21 02/10/21 02/10/21 Range/Units 16:44 16:44 16:44 WBC 9.5 (3.8-10.6) k/uL RBC 4.53 (3.80-5.40) m/uL Hgb 14.6 (11.4-16.0) gm/dL Hct 42.8 (34.0-46.0) % MCV 94.4 (80.0-100.0) fL MCH 32.2 (25.0-35.0) pg MCHC 34.1 (31.0-37.0) g/dL RDW 13.9 (11.5-15.5) % Plt Count 363 (150-450) k/uL MPV 8.2 Neutrophils % 86 % Lymphocytes % 10 % Monocytes % 1 % Eosinophils % 2 % Basophils % 0 % Neutrophils # 8.2 H (1.3-7.7) k/uL Lymphocytes # 1.0 (1.0-4.8) k/uL Monocytes # 0.1 (0-1.0) k/uL Eosinophils # 0.1 (0-0.7) k/uL Basophils # 0.0 (0-0.2) k/uL PT 9.9 (9.0-12.0) sec INR 0.9 (<1.2) APTT 17.7 L (22.0-30.0) sec Sodium 139 (137-145) mmol/L Potassium 4.3 (3.5-5.1) mmol/L Chloride 108 H (98-107) mmol/L Carbon Dioxide 20 L (22-30) mmol/L Anion Gap 11 mmol/L BUN 12 (7-17) mg/dL Creatinine 0.64 (0.52-1.04) mg/dL Est GFR (CKD-EPI)AfAm >90 (>60 ml/min/1.73 sqM) Est GFR (CKD-EPI)NonAf >90 (>60 ml/min/1.73 sqM) Glucose 178 H (74-99) mg/dL Calcium 9.9 (8.4-10.2) mg/dL Total Bilirubin 0.7 (0.2-1.3) mg/dL AST 35 (14-36) U/L ALT 17 (4-34) U/L Alkaline Phosphatase 91 (38-126) U/L Total Protein 7.0 (6.3-8.2) g/dL Albumin 4.6 (3.5-5.0) g/dL Amylase 1009 H* (30-110) U/L Lipase 55416 H (23-300) U/L Urine Color Urine Appearance (Clear) Urine pH (5.0-8.0) Ur Specific [place] (1.001-1.035) Urine Protein (Negative) Urine Glucose (UA) (Negative) Urine Ketones (Negative) Urine Blood (Negative) Urine Nitrite (Negative) Urine Bilirubin (Negative) Urine Urobilinogen (<2.0) mg/dL Ur Leukocyte Esterase (Negative) 02/10/21 Range/Units 16:53 WBC (3.8-10.6) k/uL RBC (3.80-5.40) m/uL Hgb (11.4-16.0) gm/dL Hct (34.0-46.0) % MCV (80.0-100.0) fL MCH (25.0-35.0) pg MCHC (31.0-37.0) g/dL RDW (11.5-15.5) % Plt Count (150-450) k/uL MPV Neutrophils % % Lymphocytes % % Monocytes % % Eosinophils % % Basophils % % Neutrophils # (1.3-7.7) k/uL Lymphocytes # (1.0-4.8) k/uL Monocytes # (0-1.0) k/uL Eosinophils # (0-0.7) k/uL Basophils # (0-0.2) k/uL PT (9.0-12.0) sec INR (<1.2) APTT (22.0-30.0) sec Sodium (137-145) mmol/L Potassium (3.5-5.1) mmol/L Chloride (98-107) mmol/L Carbon Dioxide (22-30) mmol/L Anion Gap mmol/L BUN (7-17) mg/dL Creatinine (0.52-1.04) mg/dL Est GFR (CKD-EPI)AfAm (>60 ml/min/1.73 sqM) Est GFR (CKD-EPI)NonAf (>60 ml/min/1.73 sqM) Glucose (74-99) mg/dL Calcium (8.4-10.2) mg/dL Total Bilirubin (0.2-1.3) mg/dL AST (14-36) U/L ALT (4-34) U/L Alkaline Phosphatase (38-126) U/L Total Protein (6.3-8.2) g/dL Albumin (3.5-5.0) g/dL Amylase (30-110) U/L Lipase (23-300) U/L Urine Color Colorless Urine Appearance Clear (Clear) Urine pH 7.0 (5.0-8.0) Ur Specific [place] 1.006 (1.001-1.035) Urine Protein Negative (Negative) Urine Glucose (UA) Negative (Negative) Urine Ketones Negative (Negative) Urine Blood Negative (Negative) Urine Nitrite Negative (Negative) Urine Bilirubin Negative (Negative) Urine Urobilinogen <2.0 (<2.0) mg/dL Ur Leukocyte Esterase Negative (Negative) - Radiology Data Radiology results: report reviewed (Fluid near the pancreas consistent with acute pancreatitis.) Disposition Clinical Impression: Acute pancreatitis Disposition: OTHER INSTITUTION NOT DEFINED Is patient prescribed a controlled substance at d/c from ED?: No Referrals: Tim Schaeffer MD [Primary Care Provider] - 1-2 days Time of Disposition: 19:44 - Out of Hospital Transfer - Req. Specs Out of Hospital Transfer - Requested Specifics: Other Emergency Center
[2021-02-10 16:49] LABS: Basophils % (A) 0 %; Eosinophils # (A) 0.1 k/uL (0-0.7); Eosinophils % (A) 2 %; HCT 42.8 % (34.0-46.0); HGB 14.6 gm/dL (11.4-16.0); Lymphocytes % (A) 10 %; MCH 32.2 pg (25.0-35.0); MCHC 34.1 g/dL (31.0-37.0); MCV 94.4 fL (80.0-100.0); Mean Platelet Volume 8.2; Monocytes # (A) 0.1 k/uL (0-1.0); Monocytes % (A) 1 %; Neutrophils # (A) 8.2 k/uL (1.3-7.7); Neutrophils % (A) 86 %; Platelet Count 363 k/uL (150-450); RBC 4.53 m/uL (3.80-5.40); RDW 13.9 % (11.5-15.5); WBC 9.5 k/uL (3.8-10.6)
[2021-02-10 17:02] LABS: ALT 17 U/L (4-34); AST 35 U/L (14-36); African American GFR (CKD) >90 (>60 ml/min/1.73 sqM); Albumin 4.6 g/dL (3.5-5.0); Alkaline Phosphatase 91 U/L (38-126); Anion Gap 11 mmol/L; Blood Urea Nitrogen 12 mg/dL (7-17); Calcium 9.9 mg/dL (8.4-10.2); Carbon Dioxide 20 mmol/L (22-30); Chloride 108 mmol/L (98-107); Glucose 178 mg/dL (74-99); Non-African American GFR(CKD) >90 (>60 ml/min/1.73 sqM); Sodium 139 mmol/L (137-145); Total Bilirubin 0.7 mg/dL (0.2-1.3)
[2021-02-10 17:03] LABS: Appearance,Urine Clear (Clear); Bilirubin,Urine Negative (Negative); Blood,Urine Negative (Negative); Color,Urine Colorless; Glucose,Urine (UA) Negative (Negative); Ketones,Urine Negative (Negative); Leukocyte Esterase,Urine Negative (Negative); Nitrite,Urine Negative (Negative); Protein,Urine Negative (Negative); Specific Gravity,Urine 1.006 (1.001-1.035); Urobilinogen,Urine <2.0 mg/dL (<2.0)
[2021-02-10 17:04] LABS: INR 0.9 (<1.2); Prothrombin Time 9.9 sec (9.0-12.0)
[2021-02-10 17:05] LABS: Partial Thromboplastin Time 17.7 sec (22.0-30.0)
[2021-02-10 17:37] LABS: Amylase 1009 U/L (30-110); Potassium 4.3 mmol/L (3.5-5.1)
[2021-02-10 17:38] LABS: Lipase 13545 U/L (23-300)
--- NOTE | 2021-02-10 18:27 | CT ---
EXAMINATION TYPE: CT abdomen pelvis w con DATE OF EXAM: 02/10/2021 COMPARISON: 08/28/2020 HISTORY: ERCP done this morning. Lower abdominal pain with nausea. CT DLP: 748.2 mGycm Automated exposure control for dose reduction was used. CONTRAST: Performed with IV Contrast, patient injected with 100 mL of Isovue 300. There is some interstitial infiltrate in subsegmental atelectasis at the lung bases. Heart is top nor mal in size. There is no pleural effusion. Liver spleen appear intact. There is some low attenuation in the body and head of the pancreas without a discrete mass. There is retroperitoneal fluid collecti on in the left anterior pararenal space. There is also fluid around the duodenum. Stomach has normal size. Gallbladder appears normal. There is no adrenal mass. Kidneys show satisfactory contrast opacification. There is no hydronephrosi s. Ureters are not dilated. There is Anand catheter in the urinary bladder. There is no inguinal mello ia. There is no free fluid in the pelvis. There is no mesenteric edema. There is no ascites or free air. There is no bowel obstruction. Appendi x is not seen. There is no sign of thickened appendix. Lumbar vertebra show no focal bone destruction. There is degenerative multilevel disc space narrowing with spur formation. There is no compression fracture. There is slight lumbar dextroscoliosis. The b jen pelvis is intact. Hip joints are intact. There is no evidence of a pelvic mass. There is hysterec marianne. IMPRESSION: Fluid around the pancreas and extending into the retroperitoneum around the duodenum and left side an terior pararenal space and to a lesser extent the anterior right perirenal space. This is consistent with pancreatitis and is a change compared to old exam. No free air. No dilated ducts.
[2021-02-10] MEDS: HYDROmorphone 1 MG/ML 1 ML SYRINGE IVP PRN ×2 (19:03→20:22)
[2021-02-10] MEDS ORDERED: SODIUM CHLORIDE 0.9% 1,000 ML IV SCH (19:15)
[2021-02-10 20:14] VITALS: BP 102/70; PULSE 62
== END 2021-02-10 20:38 | disposition other institution (70) ==
LOC: EC 15:52
DX: K85.90 Acute pancreatitis without necrosis or infection, unspecified (principal); E78.5 Hyperlipidemia, unspecified; K21.9 Gastro-esophageal reflux disease without esophagitis; Z79.82 Long term (current) use of aspirin; Z79.899 Other long term (current) drug therapy; Z87.891 Personal history of nicotine dependence; Z88.1 Allergy status to other antibiotic agents; Z88.2 Allergy status to sulfonamides; Z90.49 Acquired absence of other specified parts of digestive tract
CPT/HCPCS: 36415; 80053; 82150; 83690; 85025; 85610; 85730; 81003; 74177; 96374; 96375 ×2; 96376; 99284; J2405; J1170 ×2; Q9967; 99285

== ENCOUNTER 2021-04-02 15:16 | Observation (INO) | payer MEDICARE, BC ==
[2021-04-02 17:13] LABS: Basophils % (A) 0 %; Eosinophils # (A) 0.1 k/uL (0-0.7); Eosinophils % (A) 2 %; HGB 13.8 gm/dL (11.4-16.0); Lymphocytes # (A) 2.2 k/uL (1.0-4.8); Lymphocytes % (A) 32 %; MCH 30.6 pg (25.0-35.0); MCHC 32.9 g/dL (31.0-37.0); MCV 92.9 fL (80.0-100.0); Mean Platelet Volume 7.3; Monocytes # (A) 0.4 k/uL (0-1.0); Monocytes % (A) 5 %; Neutrophils # (A) 4.2 k/uL (1.3-7.7); Neutrophils % (A) 59 %; Platelet Count 350 k/uL (150-450); RBC 4.53 m/uL (3.80-5.40)
[2021-04-02 17:22] LABS: INR 0.9 (<1.2); Partial Thromboplastin Time 24.2 sec (22.0-30.0)
[2021-04-02 17:26] LABS: ALT 16 U/L (4-34); AST 30 U/L (14-36); African American GFR (CKD) >90 (>60 ml/min/1.73 sqM); Albumin 4.5 g/dL (3.5-5.0); Alkaline Phosphatase 102 U/L (38-126); Anion Gap 8 mmol/L; Blood Urea Nitrogen 12 mg/dL (7-17); Carbon Dioxide 26 mmol/L (22-30); Chloride 105 mmol/L (98-107); Glucose 102 mg/dL (74-99); Magnesium 2.3 mg/dL (1.6-2.3); Non-African American GFR(CKD) >90 (>60 ml/min/1.73 sqM); Potassium 4.5 mmol/L (3.5-5.1); Sodium 139 mmol/L (137-145); Total Bilirubin 0.5 mg/dL (0.2-1.3); Total Protein 7.6 g/dL (6.3-8.2)
--- NOTE | 2021-04-02 17:57 | XR ---
EXAMINATION TYPE: XR chest 2V DATE OF EXAM: 04/02/2021 COMPARISON: 01/05/2021. HISTORY: Chest pain TECHNIQUE: Frontal and lateral views of the chest are obtained. FINDINGS: There is no focal air space opacity, pleural effusion, or pneumothorax seen. The cardiac silhouette size is within normal limits. The osseous structures are intact. IMPRESSION: No acute cardiopulmonary process.
[2021-04-02] MEDS ORDERED: MAG HYDROX/AL HYDROX/SIMETH 30 ML, HYOSCYAMINE ELIXIR 10 ML, LIDOCAINE VISCOUS 2% 10 ML PO STA ×3 (19:09)
[2021-04-02] MEDS ORDERED: PANTOPRAZOLE 40 MG/10 ML VIAL IVP STA (19:09)
--- NOTE | 2021-04-02 19:10 | ED ---
Chest Pain HPI - General Chief Complaint: Chest Pain Stated Complaint: Abnormal EKG per PCP Source: patient Mode of arrival: ambulatory Limitations: no limitations - History of Present Illness Initial Comments: 71-year-old female past medical history of GERD, ERCP-induced pancreatitis, mesenteric vein thrombus on [place] who presents to the emergency department with reported shortness of breath for the past 2 weeks. States that she had a recent hospitalization for 15 days for her pancreatitis. She has been short of breath however reports that it got better and then got worse again. She was also having some heartburn symptoms. She went to her primary care doctor who completed an EKG. He felt that the patient had recent EKG changes and therefore recommended that she come into the emergency department for evaluation. Denies any previous history of cardiac disease. Does see a reforestation worker and has had stress testing and it has always been normal. Denies any history of regular heart rhythms. Denies missing any doses of her Eliquis. No history of DVT or PE. Denies any fevers, chills or cough. No other alleviating, precipitating or modifying factors - Related Data Home Medications Medication Instructions Recorded Confirmed Atorvastatin [Lipitor] 20 mg PO HS 04/11/20 04/02/21 Acetaminophen [Tylenol] 500 mg PO Q4-6H PRN 04/02/21 04/02/21 Apixaban [Eliquis] 5 mg PO BID@1000,2200 04/02/21 04/02/21 Docusate 50mg 50 mg PO BID 04/02/21 04/02/21 EPINEPHrine (Auto Inject) [Epipen] 0.3 mg IM ONCE PRN 04/02/21 04/02/21 Mag Hydrox/Aluminum Hyd/Simeth 20 ml PO Q4H PRN 04/02/21 04/02/21 [Mylanta Maximum Strength Liq] Omeprazole 40 mg PO AC-[id number] 04/02/21 04/02/21 traMADol HCL 50 mg PO BID 04/02/21 04/02/21 Allergies Allergy/AdvReac Type Severity Reaction Status Date / Time erythromycin base Allergy Rash/Hives Verified 04/02/21 19:24 nitrofurantoin Allergy Rash/Hives Verified 04/02/21 19:24 [From Macrobid] nitrofurantoin Allergy Rash/Hives Verified 04/02/21 19:24 macrocrystalline [From Macrobid] Sulfa (Sulfonamide Allergy Rash/Hives Verified 04/02/21 19:24 Antibiotics) Review of Systems ROS Statement: Those systems with pertinent positive or pertinent negative responses have been documented in the HPI. ROS Other: All systems not noted in ROS Statement are negative. EKG Findings - EKG Comments: EKG Findings:: EKG done at 1658 demonstrates normal sinus rhythm with a ventricular rate of 72. HI interval 154. QRS 88. QTC 424. Inverted T wave was some ST depression in lead 3. No acute ST segment elevations Past Medical History Past Medical History: GERD/Reflux, Hyperlipidemia Additional Past Medical History / Comment(s): back pain, IBS History of Any Multi-Drug Resistant Organisms: None Reported Past Surgical History: Appendectomy, Bladder Surgery, Hysterectomy, Tonsi llectomy Additional Past Surgical History / Comment(s): rectocele Past Anesthesia/Blood Transfusion Reactions: No Reported Reaction Past Psychological History: Anxiety Smoking Status: Former smoker Past Alcohol Use History: Rare Past Drug Use History: None Reported General Exam Limitations: no limitations Course Vital Signs 04/02/21 04/02/21 04/02/21 16:31 18:43 20:37 Temperature 98.8 F Pulse Rate 97 74 Respiratory 20 17 16 Rate Blood Pressure 137/91 135/90 O2 Sat by Pulse 98 99 Oximetry Chest Pain MDM - MDM Upon arrival the patient is placed into room 24. A thorough history and physical exam was performed. We did repeat an EKG and this is compared to the EKG from the PCP office. I also compared it to previous EKG on file here. Laboratory studies were conducted. The patient was given a dose of Protonix and a GI cocktail. Chest x-ray was performed. Upon review the results of discuss the patient. Did recommend overnight observation ordered to trend her troponins which patient did agree to. Spoke with Dr. Winston who agreed to admit the patient. She currently awaiting a bed on the floor in stable condition Disposition Clinical Impression: Chest pain, Abnormal EKG Disposition: ADMITTED IP TO THIS HOSP Condition: Stable Is patient prescribed a controlled substance at d/c from ED?: No Decision to Admit Reason: Admit from EC Decision Date: 04/02/21 Decision Time: 20:31
[2021-04-02] MEDS ORDERED: NALOXONE 0.4 MG/ML 1 ML VIAL IV PRN (20:31)
[2021-04-02] MEDS ORDERED: MAG HYDROX/AL HYDROX/SIMETH 30 ML CUP PO PRN (21:23)
[2021-04-02] MEDS ORDERED: ACETAMINOPHEN TAB 500 MG TAB PO PRN (21:23)
[2021-04-02] MEDS: APIXABAN 5 MG TAB PO SCH (21:50)
[2021-04-02] MEDS: traMADol 50 MG TAB PO SCH (21:51)
--- NOTE | 2021-04-02 23:04 | P.HPIM ---
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 The patient had presented to the PMDs office earlier today for her routine follow-up where she endorsed upper chest and neck heartburn which has gradually been worsening over the past few weeks. The patient also endorsed gradually worsening shortness of breath over the past 3 weeks. She had undergone an EKG which revealed a T-wave inversion in inferior lead which was new. The patient was thereby advised to go to the emergency room for rule out ACS. She reports no prior history of heart disease. Patient reports that her primary discomfort is in her neck, described as heartburn, unable to quantify intensity, nonradiating, nonexertional, with no alleviating or exacerbating features. She denied palpitations, nausea, vomiting, diaphoresis. Also denied fever, chills, cough, diarrhea. EKG emergency room revealed a normal sinus rhythm at 72 bpm with a rightward axis with T-wave inversion in lead III. chest x-ray was unremarkable. DrFer evaluation was also unremarkable with troponin less than 0.012, and proBNP 45 with a d-dimer 0.36. Review of systems: Pertinent positives and negatives as discussed in HPI, a complete review of systems was performed and all other systems are negative. Physical examination: General: non toxic, no distress, appears at stated age, normal weight Derm: no unusual rashes/lesions no unusual ecchymoses, warm, dry Head: atraumatic, normocephalic, symmetric Eyes: EOMI, no lid lag, anicteric sclera, pupils equal round reactive to light ENT: Nose and ears atraumatic, no thrush, no pharyngeal erythema Neck: No thyromegaly, no cervical lymphadenopathy, trachea midline, supple Mouth: no lip lesion, mucus membranes moist Cardiovascular: S1S2 reg, no murmur, positive posterior tibial pulse bilateral, no edema, capillary refill less than 2 seconds Lungs: CTA bilateral, no rhonchi, no rales , no accessory muscle use Abdominal: soft, nontender to palpation, no guarding, no appreciable organomegaly, normal bowel sounds Ext: no gross muscle atrophy, muscle strength 5 out of 5 in all 4 extremities grossly, no contractures, Neuro: CN II-XI grossly intact, light touch intact all 4 extremities, finger to nose within normal limits, Psych: Alert, oriented, appropriate affect Assessment/plan Atypical chest pain -Consult cardiology -Trend troponin -Cardiac monitoring Chronic conditions: Mesenteric vein thrombosis, hyperlipidemia, GERD -Continue with home meds DVT prophylaxis -Eliquis The patient is admitted with an anticipated less than 2 midnight stay for evaluation of chest pain. CODE STATUS: Full Code Discussed with: Patient Anticipated discharge date: in am Anticipated discharge place: Home Past Medical History Past Medical History: GERD/Reflux, Hyperlipidemia Additional Past Medical History / Comment(s): back pain, IBS History of Any Multi-Drug Resistant Organisms: None Reported Past Surgical History: Appendectomy, Bladder Surgery, Hysterectomy, Tonsillectomy Additional Past Surgical History / Comment(s): rectocele Past Anesthesia/Blood Transfusion Reactions: No Reported Reaction Past Psychological History: Anxiety Smoking Status: Former smoker Past Alcohol Use History: Rare Past Drug Use History: None Reported - Past Family History Mother Family Medical History: Cancer Medications and Allergies Home Medications Medication Instructions Recorded Confirmed Type Atorvastatin [Lipitor] 20 mg PO HS 04/11/20 04/02/21 History Acetaminophen [Tylenol] 500 mg PO Q4-6H PRN 04/02/21 04/02/21 History Apixaban [Eliquis] 5 mg PO BID@1000,2200 04/02/21 04/02/21 History Docusate 50mg 50 mg PO BID 04/02/21 04/02/21 History EPINEPHrine (Auto Inject) [Epipen] 0.3 mg IM ONCE PRN 04/02/21 04/02/21 History Mag Hydrox/Aluminum Hyd/Simeth 20 ml PO Q4H PRN 04/02/21 04/02/21 History [Mylanta Maximum Strength Liq] Omeprazole 40 mg PO AC-BRKFST 04/02/21 04/02/21 History traMADol HCL 50 mg PO BID 04/02/21 04/02/21 History Allergies Allergy/AdvReac Type Severity Reaction Status Date / Time erythromycin base Allergy Rash/Hives Verified 04/02/21 19:24 nitrofurantoin Allergy Rash/Hives Verified 04/02/21 19:24 [From Macrobid] nitrofurantoin Allergy Rash/Hives Verified 04/02/21 19:24 macrocrystalline [From Macrobid] Sulfa (Sulfonamide Allergy Rash/Hives Verified 04/02/21 19:24 Antibiotics) Physical Exam Vitals: Vital Signs Temp Pulse Resp BP Pulse Ox 04/02/21 20:37 74 16 135/90 99 04/02/21 18:43 17 04/02/21 16:31 98.8 F 97 20 137/91 98 Intake and Output 04/02/21 04/02/21 04/02/21 06:59 14:59 22:59 Other: Weight 62.142 kg Results CBC & Chem 7: 04/02/21 16:43 04/02/21 16:43 Labs: Abnormal Lab Results - Last 24 Hours (Table) 04/02/21 Range/Units 16:43 Glucose 102 H (74-99) mg/dL
[2021-04-03 05:50] LABS: African American GFR (CKD) >90 (>60 ml/min/1.73 sqM); Anion Gap 6 mmol/L; Blood Urea Nitrogen 12 mg/dL (7-17); Calcium 9.5 mg/dL (8.4-10.2); Carbon Dioxide 28 mmol/L (22-30); Chloride 104 mmol/L (98-107); Glucose 92 mg/dL (74-99); Non-African American GFR(CKD) >90 (>60 ml/min/1.73 sqM); Potassium 4.1 mmol/L (3.5-5.1); Sodium 138 mmol/L (137-145)
[2021-04-03] MEDS: PANTOPRAZOLE 40 MG TABLET PO SCH (08:33)
[2021-04-03] MEDS: APIXABAN 5 MG TAB PO SCH ×2 (08:33→20:05)
[2021-04-03] MEDS: DOCUSATE ORAL SOLN 100 MG/10 ML CUP PO SCH ×2 (08:33→20:05)
[2021-04-03] MEDS: traMADol 50 MG TAB PO SCH ×2 (08:33→20:04)
--- NOTE | 2021-04-03 10:25 | P.CRDCN ---
History of Present Illness Consult date: 04/03/21 History of present illness: HISTORY OF PRESENT ILLNESS: This is a 71-year-old female with a past medical history significant for GERD, hyperlipidemia, and recent diagnosis of mesenteric vein thrombosis on anticoagulation with Eliquis. Patient follows with Dr. Garcia. We have been asked to see the patient in consultation for chest pain. Patient examined at the bedside. Patient reports she has been having heartburn-like symptoms in the upper part of her throat for the past 3 days. She states this feeling as constant. She reports it has not gotten better or worse over the past 3 days. She denies any nausea. She denies any overt chest pain or pressure. EKG reveals sinus mechanism with nonspecific ST-T wave changes Chest xray negative for acute process Laboratory data: WBC 7.0. Hemoglobin 13.8. Platelet count 350. D-dimer 0.36. Sodium 138. Potassium 4.1. BUN 12. Creatinine 0.61. Magnesium 2.1. Troponin negative 3. Current home cardiac medications include Lipitor 20 mg daily and Eliquis 5 mg twice a day REVIEW OF SYSTEMS: At the time of my exam: CONSTITUTIONAL: Denies fever or chills. HEENT: Denies blurred vision, vision changes, or eye pain. Denies hemoptysis CARDIOVASCULAR: Denies chest pain. Denies orthopnea. Denies PND. Denies palpitations RESPIRATORY: Denies shortness of breath. GASTROINTESTINAL: Denies abdominal pain. Denies nausea or vomiting. HEMATOLOGIC: Denies bleeding disorders. GENITOURINARY: Denies any blood in urine. SKIN: Denies pruitis. Denies rash. PHYSICAL EXAM: VITAL SIGNS: Reviewed. GENERAL: Well-developed in no acute distress. HEENT: Head is normocephalic. Pupils are equal, round. Sclerae anicteric. Mucous membranes of the mouth are moist. Neck supple. No JVD or thyromegaly LUNGS: Respirations even and unlabored. Lungs essentially clear to auscultation bilaterally. HEART: Regular rate and rhythm. S1 and S2 heard. ABDOMEN: Soft. Nondistended. Nontender. EXTREMITIES: Normal range of motion. No clubbing or cyanosis. Peripheral pulses intact. No lower extremity edema NEUROLOGIC: Awake and alert. Oriented x 3. ASSESSMENT: Chest pain, atypical, troponin negative 3 Hyperlipidemia History of mesenteric vein thrombosis on anticoagulation with Eliquis GERD PLAN: An acute coronary event has been ruled out Resume home cardiac medications Obtain 2-D echo to assess cardiac structure and function Patient to undergo stress echo today Further recommendations pending patient's course Nurse practitioner note has been reviewed by physician. Signing provider agrees with the documented findings, assessment, and plan of care. Past Medical History Past Medical History: GERD/Reflux, Hyperlipidemia Additional Past Medical History / Comment(s): back pain, IBS History of Any Multi-Drug Resistant Organisms: None Reported Past Surgical History: Appendectomy, Bladder Surgery, Hysterectomy, Tonsillectomy Additional Past Surgical History / Comment(s): rectocele Past Anesthesia/Blood Transfusion Reactions: No Reported Reaction Past Psychological History: Anxiety Smoking Status: Former smoker Past Alcohol Use History: Rare Past Drug Use History: None Reported - Past Family History Mother Family Medical History: Cancer Medications and Allergies Home Medications Medication Instructions Recorded Confirmed Type Atorvastatin [Lipitor] 20 mg PO HS 04/11/20 04/02/21 History Acetaminophen [Tylenol] 500 mg PO Q4-6H PRN 04/02/21 04/02/21 History Apixaban [Eliquis] 5 mg PO BID@1000,2200 04/02/21 04/02/21 History Docusate 50mg 50 mg PO BID 04/02/21 04/02/21 History EPINEPHrine (Auto Inject) [Epipen] 0.3 mg IM ONCE PRN 04/02/21 04/02/21 History Mag Hydrox/Aluminum Hyd/Simeth 20 ml PO Q4H PRN 04/02/21 04/02/21 History [Mylanta Maximum Strength Liq] Omeprazole 40 mg PO AC-BRKFST 04/02/21 04/02/21 History traMADol HCL 50 mg PO BID 04/02/21 04/02/21 History Allergies Allergy/AdvReac Type Severity Reaction Status Date / Time erythromycin base Allergy Rash/Hives Verified 04/02/21 19:24 nitrofurantoin Allergy Rash/Hives Verified 04/02/21 19:24 [From Macrobid] nitrofurantoin Allergy Rash/Hives Verified 04/02/21 19:24 macrocrystalline [From Macrobid] Sulfa (Sulfonamide Allergy Rash/Hives Verified 04/02/21 19:24 Antibiotics) Physical Exam Vitals: Vital Signs Temp Pulse Pulse Resp BP BP Pulse Ox 10/19/21 07:00 97.5 F L 60 18 117/73 98 04/03/21 01:09 98.3 F 76 17 123/77 99 04/02/21 22:50 98.2 F 83 17 148/82 100 04/02/21 20:37 74 16 135/90 99 04/02/21 18:43 17 04/02/21 16:31 98.8 F 97 20 137/91 98 Intake and Output 04/02/21 04/03/21 04/03/21 22:59 06:59 14:59 Other: Voiding Method Toilet # Voids 0 2 Weight 62.142 kg Results 04/02/21 16:43 04/03/21 05:11 Cardiac Enzymes 04/02/21 04/02/21 04/02/21 Range/Units 16:43 16:43 21:40 AST 30 (14-36) U/L Troponin I <0.012 <0.012 (0.000-0.034) ng/mL 04/03/21 Range/Units 00:44 AST (14-36) U/L Troponin I <0.012 (0.000-0.034) ng/mL Coagulation 04/02/21 Range/Units 16:43 PT 10.0 (9.0-12.0) sec APTT 24.2 (22.0-30.0) sec CBC 04/02/21 Range/Units 16:43 WBC 7.0 (3.8-10.6) k/uL RBC 4.53 (3.80-5.40) m/uL Hgb 13.8 (11.4-16.0) gm/dL Hct 42.0 (34.0-46.0) % Plt Count 350 (150-450) k/uL Comprehensive Metabolic Panel 04/02/21 04/03/21 Range/Units 16:43 05:11 Sodium 139 138 (137-145) mmol/L Potassium 4.5 4.1 (3.5-5.1) mmol/L Chloride 105 104 (98-107) mmol/L Carbon Dioxide 26 28 (22-30) mmol/L BUN 12 12 (7-17) mg/dL Creatinine 0.62 0.61 (0.52-1.04) mg/dL Glucose 102 H 92 (74-99) mg/dL Calcium 10.0 9.5 (8.4-10.2) mg/dL AST 30 (14-36) U/L ALT 16 (4-34) U/L Alkaline Phosphatase 102 (38-126) U/L Total Protein 7.6 (6.3-8.2) g/dL Albumin 4.5 (3.5-5.0) g/dL Current Medications Generic Name Dose Route Start Last Admin Trade Name Freq PRN Reason Stop Dose Admin Acetaminophen 500 mg 04/02/21 21:23 Acetaminophen Tab 500 Mg Tab PO Q4H PRN Pain Al Hydroxide/Mg Hydroxide 20 ml 04/02/21 21:23 Mag Hydrox/Al Hydrox/Simeth 30 Ml Cup PO Q4H PRN GI Upset Apixaban 5 mg 04/02/21 22:00 04/02/21 21:50 Apixaban 5 Mg Tab PO 5 mg BID@1000,2200 ROYCE Administration Protocol Atorvastatin Calcium 20 mg 04/03/21 21:00 Atorvastatin 20 Mg Tab PO HS ROYCE Docusate Sodium 50 mg 04/03/21 09:00 Docusate Oral Soln 100 Mg/10 Ml Cup PO BID ROYCE Naloxone HCl 0.2 mg 04/02/21 20:31 Naloxone 0.4 Mg/Ml 1 Ml Vial IV Q2M PRN Opioid Reversal Pantoprazole Sodium 40 mg 04/03/21 07:30 Pantoprazole 40 Mg Tablet PO AC-BRKFST ROYCE Tramadol HCl 50 mg 04/02/21 21:30 04/02/21 21:51 Tramadol 50 Mg Tab PO 50 mg BID ROYCE Administration Intake and Output 04/02/21 04/03/21 04/03/21 22:59 06:59 14:59 Other: Voiding Method Toilet # Voids 0 2 Weight 62.142 kg 04/02/21 16:43 04/03/21 05:11
[2021-04-03 11:15] LABS: Basophils # (A) 0.03 X 10*3/uL (0.00-0.10); Basophils % (A) 0.5 %; Eosinophils # (A) 0.08 X 10*3/uL (0.04-0.35); Eosinophils % (A) 1.3 %; HCT 40.3 % (37.2-46.3); HGB 12.7 g/dL (12.0-15.0); Lymphocytes # (A) 2.53 X 10*3/uL (0.90-5.00); Lymphocytes % (A) 42.4 %; MCH 29.3 pg (27.0-32.0); MCHC 31.5 g/dL (32.0-37.0); MCV 92.9 fL (80.0-97.0); Monocytes # (A) 0.52 X 10*3/uL (0.20-1.00); Monocytes % (A) 8.7 %; Neutrophils # (A) 2.79 X 10*3/uL (1.80-7.70); Neutrophils % (A) 46.8 %; Platelet Count 351 X 10*3/uL (140-440); RBC 4.34 X 10*6/uL (4.10-5.20); WBC 5.97 X 10*3/uL (4.50-10.00)
--- NOTE | 2021-04-03 15:29 | ECHOF ---
Referral Reason:LV function, chest pain MEASUREMENTS -------- HEIGHT: 167.6 cm WEIGHT: 62.1 kg BP: IVSd: 1.1 cm (0.6 - 1.1) LVIDd: 3.1 cm (3.9 - 5.3) LVPWd: 1.0 cm (0.6 - 1.1) EDV(Teich): 38 ml IVSs: 1.5 cm LVIDs: 1.8 cm LVPWs: 1.4 cm %IVS Thck: 37 % ESV(Teich): 9 ml EF(Teich): 76 % %FS: 44 % SV(Teich): 29 ml RVIDd: 3.1 cm (< 3.3) IVC: 16.64 mm LALs A4C: 3.0 cm LAAs A4C: 7.2 cm LAESV A-L A4C: 15 ml LAESV MOD A4C: 13 ml LALs A2C: 3.3 cm LAAs A2C: 7.9 cm LAESV A-L A2C: 16 ml LAESV MOD A2C: 15 ml LAESV(A-L): 16 ml LAESV Index (A-L): 9.64 ml/m Ao Diam: 2.5 cm (2.0 - 3.7) LA Diam: 1.8 cm (2.7 - 3.8) AV Cusp: 2.0 cm (1.5 - 2.6) EPSS: 0.4 cm MV E Ras: 0.59 m/s MV DecT: 224 ms MV Dec [place]: 2.6 m/s MV A Ras: 0.47 m/s MV E/A Ratio: 1.26 MV PHT: 65 ms LVOT Vmax: 0.83 m/s LVOT maxP.72 mmHg AV Vmax: 0.99 m/s AV maxP.90 mmHg TR Vmax: 2.52 m/s TR maxP.50 mmHg RAP: 5.00 mmHg RVSP: 30.50 mmHg MV EF SLOPE: 58.33 mm/s (70 - 150) MV EXCURSION: 13.37 mm (> 18.000) FINDINGS -------- Sinus rhythm. This was a technically adequate study. The left ventricular size is normal. Left ventricular wall thickness is normal. Overall left vent ricular systolic function is normal with, an EF between 55 - 60 %. The diastolic filling pattern is normal for the age of the patient 8.95. The right ventricle is normal in size. Normal LA size by volume 22+/-6 ml/m2. The right atrial size is normal. Interatrial and interventricular septum intact. The aortic valve is trileaflet and appears structurally normal. There is no evidence of aortic regu rgitation. There is no evidence of aortic stenosis. Mild mitral regurgitation is present. Mild tricuspid regurgitation present. There is no evidence of pulmonary hypertension. The right v entricular systolic pressure, as measured by Doppler, is 30.50mmHg. There is no pulmonic regurgitation present. The aortic root size is normal. Normal inferior vena cava with normal inspiratory collapse consistent with estimated right atrial pre ssure of 5 mmHg. There is no pericardial effusion. CONCLUSIONS -------- 1. The left ventricular size is normal. 2. Left ventricular wall thickness is normal. 3. Overall left ventricular systolic function is normal with, an EF between 55 - 60 %. 4. The diastolic filling pattern is normal for the age of the patient 8.95 5. Mild mitral regurgitation is present. 6. Mild tricuspid regurgitation present. TRANSPORTATION ENGINEERING TECHNICIAN: Adrienne Dillon RDCS
--- NOTE | 2021-04-03 16:05 | P.PN ---
Subjective Progress Note Date: 04/03/21 Pt doing well today, no complaints. Pain resolved. pending results of stress test, but there is a delay in reading due to multiple emergency cases. Pt was advised on likely d/c tomorrow. Objective - Vital Signs Vital signs: Vital Signs Temp 98.1 F 04/03/21 13:43 Pulse 92 04/03/21 13:43 Resp 18 04/03/21 13:43 BP 122/76 04/03/21 13:43 Pulse Ox 99 04/03/21 13:43 Intake & Output 04/02/21 04/03/21 04/03/21 18:59 06:59 18:59 Intake Total 120 Balance 120 Weight 62.142 kg 62.142 kg 62 kg Intake: Oral 120 Other: Voiding Method Toilet # Voids 2 - Exam Gen: awake, alert HEENT: normocephalic, atraumatic, good hearing acuity, moist mucous membranes Resp: good air exchange, breathing comfortably with no accessory muscle use CVS: good distal perfusion x 4, GI: soft, NTTP, ND : no SPT, no CVAT, marquez catheter not present MSK: no pitting edema, no clubbing Neuro: non-focal, moving all extremities Psych: cooperative, euthymic mood - Labs CBC & Chem 7: 04/03/21 05:11 04/03/21 05:11 Labs: Abnormal Lab Results - Last 24 Hours (Table) 04/02/21 04/03/21 Range/Units 16:43 05:11 MCHC 31.5 L (32.0-37.0) g/dL Glucose 102 H (74-99) mg/dL Assessment and Plan Assessment: Atypical chest pain -Consult cardiology -pending echo stress test read -Trend troponin were negative -Cardiac monitoring without ischemic or arrhythmic events Chronic conditions: Mesenteric vein thrombosis, hyperlipidemia, GERD -Continued with home meds DVT prophylaxis -Eliquis The patient is admitted with an anticipated less than 2 midnight stay for evaluation of chest pain. CODE STATUS: Full Code Discussed with: Patient Anticipated discharge date: in am Anticipated discharge place: Home
--- NOTE | 2021-04-03 18:41 | P.STRESS ---
- Stress Test Note Stress Test Results/Findings: Exam Performed: stress echo exercise Exam Date: 04/03/21 Reason for Exam: CO Height: 5 ft 6 in Weight: 62 kg Protocol: STRESS ECHO EXERCISE Stage: 2 Duration of Exercise: 6:00 Resting Heart Rate: 76 Resting Blood Pressure: 128/83 Maximum Achieved Heart Rate: 156 Maximum Achieved Blood Pressure: 199/84 85% PMHR: 128 100% PMHR: 151 METS: 7.1 Technologist Comment: Stress Test Results/Findings: Baseline heart rate 76 beats a minute, Baseline blood pressure 128/83 mmHg Patient exercised the Jaime protocol for 6 minutes achieving a peak heart rate of 156 beats a minute No ECG also ischemia No arrhythmias noted Baseline 2-D echo showed normal LV systolic function without segmental wall m otion abnormalities At peak exercise is excellent augmentation of overall LV contractility, without development of any wall motion abnormalities At recovery regional and global LV systolic function to be normal Patient complained of fatigue at 6 minutes Impression No ECG or echocardiographic evidence for ischemia Average exercise capacity Patient stopped treadmill on account of fatigue
[2021-04-03] MEDS ORDERED: ATORVASTATIN 20 MG TAB PO SCH (21:00)
[2021-04-04 07:53] VITALS: BP 111/75; PULSE 74; RESP 14; TEMP 97.6
[2021-04-04] MEDS: PANTOPRAZOLE 40 MG TABLET PO SCH (07:58)
[2021-04-04] MEDS: DOCUSATE ORAL SOLN 100 MG/10 ML CUP PO SCH (07:58)
[2021-04-04] MEDS: traMADol 50 MG TAB PO SCH (07:58)
[2021-04-04] MEDS: APIXABAN 5 MG TAB PO SCH (07:59)
--- NOTE | 2021-04-04 08:15 | EST ---
Stress Test Results/Findings: Exam Performed: stress echo exercise Exam Date: 04/03/21 Reason for Exam: CO Height: 5 ft 6 in Weight: 62 kg Protocol: STRESS ECHO EXERCISE Stage: 2 Duration of Exercise: 6:00 Resting Heart Rate: 76 Resting Blood Pressure: 128/83 Maximum Achieved Heart Rate: 156 Maximum Achieved Blood Pressure: 199/84 85% PMHR: 128 100% PMHR: 151 METS: 7.1 Technologist Comment: Stress Test Results/Findings: Baseline heart rate 76 beats a minute, Baseline blood pressure 128/83 mmHg Patient exercised the Jaime protocol for 6 minutes achieving a peak heart rate of 156 beats a minute No ECG also ischemia No arrhythmias noted Baseline 2-D echo showed normal LV systolic function without segmental wall motion abnormalities At peak exercise is excellent augmentation of overall LV contractility, without development of any wall motion abnormalities At recovery regional and global LV systolic function to be normal Patient complained of fatigue at 6 minutes Impression No ECG or echocardiographic evidence for ischemia Average exercise capacity Patient stopped treadmill on account of fatigue MTDD
--- NOTE | 2021-04-04 12:45 | P.DS ---
Providers Date of admission: 04/02/21 20:31 Expected date of discharge: 04/04/21 Attending physician: Margei Winston MD Consults: 04/02/21 20:32 Consult Physician Urgent Consulting Provider: [facility] Consult Reason/Comments: acute chest pain Do you want consulting provider notified?: Yes Primary care physician: Benjamin Parker [facility] Course: Discharge Diagnosis: Atypical Chest pain, acute coronary event ruled out chest pain secondary to gastroesophageal reflux Hyperlipidemia History of mesenteric vein thrombosis on anticoagulation with Eliquis Postprocedural pancreatitis Hiatal hernia GERD Hospital Course: Patient is a 71-year-old female with a past medical history of a hiatal hernia, GERD, gallstones status post MRCP CPE with subsequent postprocedural pancreatitis along with mesenteric vein thrombosis on anticoagulation with Eliquis, and hyperlipidemia. She presented to the hospital on 04/02/21 with a chief complaint of upper chest and neck heartburn in which she reports progressively worsened over the past few weeks. She was admitted under services along with consult to cardiology. Patient underwent workup showing EKG normal sinus rhythm at 72 bpm with T-wave inversion in inferior leads III and aVF. Troponins trended and were negative at less than 0.012 x 3 draws. D-dimer negative at 0.36. Covid PCR negative. CBC and BMP were unremarkable. Chest x- ray negative for acute cardiopulmonary process. Echocardiogram showing a normal EF between 55 and 60% with no significant valvular abnormalities. Stress echo and stress EKG showing no evidence for ischemia with average exercise capacity. Acute coronary event was ruled out. Chest pain/burning sensation and likely secondary to gastroesophageal reflux. Patient being started on Carafate 1 g with meals and at bedtime and being discharged home on carafate in addition to omeprazole and Mylanta. She is instructed to follow-up outpatient with gastroenterology, Dr. Lan as well as follow up outpatient with her PCP and cardiology. Pt medically stable for discharge home at this time. Physical examination: Patient seen and examined at bedside. She denied currently experiencing any chest pain, shortness of breath, nausea, vomiting, or any other complaints. Patient tolerated breakfast. Labs remained unremarkable. Vital signs stable. Patient stable for discharge home. Vital signs reviewed and stable. General: Nontoxic, no distress and appears stated age. Derm: Skin warm and dry, normal coloration for ethnicity. Head: Atraumatic, normocephalic and symmetric. Eyes: EOMs intact, no lid lag, and anicteric sclera Mouth: no lip lesions, mucus membranes moist Cardiovascular: regular rate and rhythm with normal S1S2, no murmur, positive posterior tibial pulses bilaterally, and cap refill < 2 seconds. Lungs: Respirations even, regular, and unlabored on room air. Lungs CTA bilaterally, no rhonchi, no rales, no wheezing, and no accessory muscle usage. Abdominal: soft, nontender to palpation, no guarding, no appreciable organo megaly Ext: ROM intact. No gross muscle atrophy, no edema, no contractures Neuro: Speech clear, face symmetrical and CN II-XII grossly intact with no noted focal neuro deficits Psych: Alert and oriented to person, place, time, and situation. Appropriate and pleasant affect. A total of 45 minutes of time were spent preparing this complex discharge summary. Patient Condition at Discharge: Stable Plan - Discharge Summary Discharge Rx Participant: No New Discharge Prescriptions: New Sucralfate [Carafate] 1 gm PO ACHS 30 Days #120 gm Continue Atorvastatin [Lipitor] 20 mg PO HS Omeprazole 40 mg PO AC-BRKFST Acetaminophen [Tylenol] 500 mg PO Q4-6H PRN PRN Reason: Pain EPINEPHrine (Auto Inject) [Epipen] 0.3 mg IM ONCE PRN PRN Reason: Anaphylaxis Apixaban [Eliquis] 5 mg PO BID@1000,2200 Docusate 50mg 50 mg PO BID Mag Hydrox/Aluminum Hyd/Simeth [Mylanta Maximum Strength Liq] 20 ml PO Q4H PRN PRN Reason: Gi Upset traMADol HCL 50 mg PO BID Discharge Medication List Atorvastatin [Lipitor] 20 mg PO HS 04/11/20 [History] Acetaminophen [Tylenol] 500 mg PO Q4-6H PRN 04/02/21 [History] Apixaban [Eliquis] 5 mg PO BID@1000,2200 04/02/21 [History] Docusate 50mg 50 mg PO BID 04/02/21 [History] EPINEPHrine (Auto Inject) [Epipen] 0.3 mg IM ONCE PRN 04/02/21 [History] Mag Hydrox/Aluminum Hyd/Simeth [Mylanta Maximum Strength Liq] 20 ml PO Q4H PRN 04/02/21 [History] Omeprazole 40 mg PO AC-BRKFST 04/02/21 [History] traMADol HCL 50 mg PO BID 04/02/21 [History] Sucralfate [Carafate] 1 gm PO ACHS 30 Days #120 gm 04/04/21 [Rx] Follow up Appointment(s)/Referral(s): Armando Mills MD [STAFF PHYSICIAN] - 1 Week Benjamin Cotter MD [Primary Care Provider] - 1-2 days Wendy Lan MD [STAFF PHYSICIAN] - 1 Week Activity/Diet/Wound Care/Special Instructions: Activity: As tolerated. Take breaks as needed. Diet: Heart healthy and carb consistent diet. Avoid salts, or foods with hidden salts such as canned or boxed foods and frozen dinners. Extra salt makes your heart work harder and traps the fluid in your body for longer. Special Instructions: Take all of your medications as directed, NEVER skip a dose. And remember to keep all of your doctor's appointments and follow-up as needed. Thank you for allowing us to participate in your care, it was truly a pleasure having you for our patient!!! Discharge Disposition: HOME SELF-CARE
== END 2021-04-04 14:22 | disposition home or self-care (01) ==
LOC: EC 15:16 → 6NMEDSUR 20:31
PROVIDERS: ADMIT Internal Medicine; ATTEND Internal Medicine
DX: K21.9 Gastro-esophageal reflux disease without esophagitis (principal); E78.5 Hyperlipidemia, unspecified; I82.890 Acute embolism and thrombosis of other specified veins; K85.90 Acute pancreatitis without necrosis or infection, unspecified; Z20.822 Contact with and (suspected) exposure to COVID-19; R94.31 Abnormal electrocardiogram [ECG] [EKG]; M54.9 Dorsalgia, unspecified; K44.9 Diaphragmatic hernia without obstruction or gangrene; K58.9 Irritable bowel syndrome, unspecified; F41.9 Anxiety disorder, unspecified; Z79.01 Long term (current) use of anticoagulants; Z79.899 Other long term (current) drug therapy; Z88.2 Allergy status to sulfonamides; Z88.1 Allergy status to other antibiotic agents; Z87.891 Personal history of nicotine dependence; Z90.710 Acquired absence of both cervix and uterus; Z90.49 Acquired absence of other specified parts of digestive tract; Z87.442 Personal history of urinary calculi; Z80.9 Family history of malignant neoplasm, unspecified
CPT/HCPCS: 99285; 96374; 36415; 93005; 93306; 93351; 85379; 83880; 80053; 80048; 83735; 84484 ×2; 85025 ×2; 85610; 85730; 87635; 71046; G0378 ×3; C9113

== ENCOUNTER → 2021-04-17 | Outpatient (CLI) | payer MEDICARE, BC ==
--- NOTE | 2021-04-19 14:03 | MM ---
Reason for exam: screening (asymptomatic). Last mammogram was performed 1 year and 1 month ago. History: Patient is postmenopausal and has history of high-risk lesion on a previous biopsy at age 70. High risk MG stereo VAD BX RT of the right breast, April 12, 2020. Took estrogen for 1 year 5 months beginning at age 54. Took progesterone for 1 year 5 months beginning at age 54. Physical Findings: A clinical breast exam by your physician is recommended on an annual basis and results should be correlated with mammographic findings. MG 3D Screening Mammo W/Cad Bilateral CC and MLO view(s) were taken. Prior study comparison: March 06, 2020, bilateral MG 3d screening mammo w/cad. March 01, 2019, bilateral MG 3d screening mammo w/cad. The breast tissue is heterogeneously dense. This may lower the sensitivity of mammography. Previous mammotome biopsy in the right breast. No significant changes when compared with prior studies. ASSESSMENT: Benign, BI-RAD 2 RECOMMENDATION: Routine screening mammogram of both breasts in 1 year.
== END | disposition home or self-care (01) ==
LOC: RADMAMWWP 07:58
PROVIDERS: ATTEND Obstetrics & Gynecology
DX: Z12.31 Encounter for screening mammogram for malignant neoplasm of breast (principal); Z78.0 Asymptomatic menopausal state
CPT/HCPCS: 77063; 77067

== ENCOUNTER → 2021-05-17 | Outpatient (CLI) | payer MEDICARE, BC ==
[~2021-05-17] MED LIST: ACETAMINOPHEN TAB 325 MG TAB PO PRN; SODIUM CHLORIDE 0.9% 50 ML IVPB ONE; SOTROVIMAB (EUA) 500 MG in SODIUM CHLORIDE 0.9% 100 ML IVPB ONE
[2021-05-17] MEDS: SODIUM CHLORIDE 0.9% 500 ML 500 ML in EMPTY BAG 1 BAG IV PRN ×2 (10:43→10:57)
[2021-05-17 11:01] VITALS: RESP 16
[2021-05-17 11:36] VITALS: PULSE 100
[2021-05-17 11:58] VITALS: BP 127/84; TEMP 100.1
== END ==
LOC: PROCWHC3 10:03
PROVIDERS: ATTEND Physician Assistant
DX: U07.1 COVID-19 (principal); Z88.1 Allergy status to other antibiotic agents; Z88.2 Allergy status to sulfonamides; Z88.8 Allergy status to other drugs, medicaments and biological substances
CPT/HCPCS: 96360; Q0247; M0247

== ENCOUNTER 2021-07-02 00:38 | Emergency (ER) | payer MEDICARE, BC ==
[2021-07-02 01:36] LABS: Appearance,Urine Turbid (Clear); Bilirubin,Urine Negative (Negative); Blood,Urine Moderate (Negative); Calcium Oxalate Crystals,Urine Few /hpf; Color,Urine Yellow; Glucose,Urine (UA) Negative (Negative); Hyaline Casts,Urine 7 /lpf (0-2); Ketones,Urine Negative (Negative); Leukocyte Esterase,Urine Large (Negative); Mucus,Urine Rare /hpf; Nitrite,Urine Negative (Negative); PH, Urine 5.5 (5.0-8.0); Protein,Urine 1+ (Negative); RBC,Urine 95 /hpf (0-5); Specific Gravity,Urine 1.021 (1.001-1.035); Urobilinogen,Urine <2.0 mg/dL (<2.0); WBC,Urine >182 /hpf (0-5)
[2021-07-02] MEDS ORDERED: SODIUM CHLORIDE 0.9% 1,000 ML IV STA (01:49)
--- NOTE | 2021-07-02 01:50 | ED ---
Female Urogenital HPI - General Chief complaint: Urogenital Stated complaint: Bladder infection Time Seen by Provider: 07/02/21 01:37 Source: patient, RN notes reviewed, old records reviewed Mode of arrival: ambulatory Limitations: no limitations - History of Present Illness Initial comments: This is a 71-year-old female with recurrent urinary tract infection abdominal pain pressure difficulty urinating, history of about 6 urinary tract infections in the past 2 months. Multiple different antibiotics use symptoms continue to recur. Patient is without fever does have occasional abdominal pain and fullness urge to urinate. Otherwise patient has had medical history is complicated for also multiple gynecologic surgeries MD Complaint: dysuria -: hour(s) Location: suprapubic Severity: mild Severity scale (1-10): 3 Quality: cramping, sharp Consistency: intermittent Improves with: none Worsens with: none Patient : No Associated Symptoms: abdominal pain, dysuria - Related Data Sexually active: No Home Medications Medication Instructions Recorded Confirmed Atorvastatin [Lipitor] 20 mg PO HS 04/11/20 04/02/21 Acetaminophen [Tylenol] 500 mg PO Q4-6H PRN 04/02/21 04/02/21 Apixaban [Eliquis] 5 mg PO BID@1000,2200 04/02/21 04/02/21 Docusate 50mg 50 mg PO BID 04/02/21 04/02/21 EPINEPHrine (Auto Inject) [Epipen] 0.3 mg IM ONCE PRN 04/02/21 04/02/21 Mag Hydrox/Aluminum Hyd/Simeth 20 ml PO Q4H PRN 04/02/21 04/02/21 [Mylanta Maximum Strength Liq] Omeprazole 40 mg PO AC-BRKFST 04/02/21 04/02/21 traMADol HCL 50 mg PO BID 04/02/21 04/02/21 Previous Rx's Medication Instructions Recorded Sucralfate [Carafate] 1 gm PO ACHS 30 Days #120 gm 04/04/21 Amoxic-Pot Clav 875-125Mg 1 tab PO Q12HR #20 tablet 07/02/21 [Augmentin 875-125] Phenazopyridine [Pyridium] 200 mg PO TID #6 tablet 07/02/21 Allergies Allergy/AdvReac Type Severity Reaction Status Date / Time erythromycin base Allergy Rash/Hives Verified 07/02/21 00:47 nitrofurantoin Allergy Rash/Hives Verified 07/02/21 00:47 [From Macrobid] nitrofurantoin Allergy Rash/Hives Verified 07/02/21 00:47 macrocrystalline [From Macrobid] Sulfa (Sulfonamide Allergy Rash/Hives Verified 07/02/21 00:47 Antibiotics) Review of Systems ROS Statement: Those systems with pertinent positive or pertinent negative responses have been documented in the HPI. ROS Other: All systems not noted in ROS Statement are negative. Past Medical History Past Medical History: GERD/Reflux, Hyperlipidemia Additional Past Medical History / Comment(s): back pain, IBS History of Any Multi-Drug Resistant Organisms: None Reported Past Surgical History: Appendectomy, Bladder Surgery, Hysterectomy, Tonsillectomy Additional Past Surgical History / Comment(s): rectocele Past Anesthesia/Blood Transfusion Reactions: No Reported Reaction Past Psychological History: Anxiety Smoking Status: Former smoker Past Alcohol Use History: Rare Past Drug Use History: None Reported - Past Family History Mother Family Medical History: Cancer General Exam General appearance: alert, in no apparent distress Head exam: Present: atraumatic, normocephalic, normal inspection Eye exam: Present: normal appearance, PERRL, EOMI. Absent: scleral icterus, conjunctival injection, periorbital swelling ENT exam: Present: normal exam, mucous membranes moist Neck exam: Present: normal inspection. Absent: tenderness, meningismus, lymphadenopathy Respiratory exam: Present: normal lung sounds bilaterally. Absent: respiratory distress, wheezes, rales, rhonchi, stridor Cardiovascular Exam: Present: regular rate, normal rhythm, normal heart sounds. Absent: systolic murmur, diastolic murmur, rubs, gallop, clicks GI/Abdominal exam: Present: soft, normal bowel sounds. Absent: distended, tenderness, guarding, rebound, rigid Extremities exam: Present: normal inspection, full ROM, normal capillary refill. Absent: tenderness, pedal edema, joint swelling, calf tenderness Back exam: Present: normal inspection Neurological exam: Present: alert, oriented X3, CN II-XII intact Psychiatric exam: Present: normal affect, normal mood Skin exam: Present: warm, dry, intact, normal color. Absent: rash Course Vital Signs 07/02/21 07/02/21 00:48 05:06 Temperature 97.4 F L 98.4 F Pulse Rate 71 77 Respiratory 20 15 Rate Blood Pressure 137/77 132/70 O2 Sat by Pulse 100 98 Oximetry - Reevaluation(s) Reevaluation #1: 07/02/21 Medical records reviewed Symptoms improved here in the emergency department Patient informed of results and questions answered Medical Decision Making - Medical Decision Making 71 female with recurrent and persistent bladder infections. Patient given antibiotics here in the emergency department, pain is improved and patient can be discharged home - Lab Data Result diagrams: 07/02/21 01:49 07/02/21 01:49 Lab Results 07/02/21 07/02/21 07/02/21 Range/Units 00:55 01:49 01:49 WBC 10.8 H (3.8-10.6) k/uL RBC 4.38 (3.80-5.40) m/uL Hgb 13.3 (11.4-16.0) gm/dL Hct 41.4 (34.0-46.0) % MCV 94.4 (80.0-100.0) fL MCH 30.3 (25.0-35.0) pg MCHC 32.1 (31.0-37.0) g/dL RDW 13.8 (11.5-15.5) % Plt Count 331 (150-450) k/uL MPV 7.4 Neutrophils % 75 % Lymphocytes % 18 % Monocytes % 4 % Eosinophils % 2 % Basophils % 0 % Neutrophils # 8.1 H (1.3-7.7) k/uL Lymphocytes # 1.9 (1.0-4.8) k/uL Monocytes # 0.4 (0-1.0) k/uL Eosinophils # 0.3 (0-0.7) k/uL Basophils # 0.0 (0-0.2) k/uL Sodium 139 (137-145) mmol/L Potassium 5.0 (3.5-5.1) mmol/L Chloride 107 (98-107) mmol/L Carbon Dioxide 23 (22-30) mmol/L Anion Gap 9 mmol/L BUN 18 H (7-17) mg/dL Creatinine 0.68 (0.52-1.04) mg/dL Est GFR (CKD-EPI)AfAm >90 (>60 ml/min/1.73 sqM) Est GFR (CKD-EPI)NonAf 90 (>60 ml/min/1.73 sqM) Glucose 101 H (74-99) mg/dL Calcium 9.3 (8.4-10.2) mg/dL Total Bilirubin 1.2 (0.2-1.3) mg/dL AST 50 H (14-36) U/L ALT 30 (4-34) U/L Alkaline Phosphatase 93 (38-126) U/L Total Protein 7.9 (6.3-8.2) g/dL Albumin 4.8 (3.5-5.0) g/dL Amylase 89 (30-110) U/L Lipase 343 H (23-300) U/L Urine Color Yellow Urine Appearance Turbid H (Clear) Urine pH 5.5 (5.0-8.0) Ur Specific Vista 1.021 (1.001-1.035) Urine Protein 1+ H (Negative) Urine Glucose (UA) Negative (Negative) Urine Ketones Negative (Negative) Urine Blood Moderate H (Negative) Urine Nitrite Negative (Negative) Urine Bilirubin Negative (Negative) Urine Urobilinogen <2.0 (<2.0) mg/dL Ur Leukocyte Esterase Large H (Negative) Urine RBC 95 H (0-5) /hpf Urine WBC >182 H (0-5) /hpf Urine WBC Clumps Many H (None) /hpf Calcium Oxalate Crystal Few H (None) /hpf Hyaline Casts 7 H (0-2) /lpf Urine Mucus Rare H (None) /hpf - Radiology Data Radiology results: report reviewed (CT of the abdomen and pelvis is negative for significant acute disease), image reviewed Disposition Clinical Impression: Urinary tract infection Disposition: HOME SELF-CARE Condition: Good Instructions (If sedation given, give patient instructions): Urinary Tract Infection in Women (ED) Prescriptions: Amoxic-Pot Clav 875-125Mg [Augmentin 875-125] 1 tab PO Q12HR #20 tablet Phenazopyridine [Pyridium] 200 mg PO TID #6 tablet Is patient prescribed a controlled substance at d/c from ED?: No Referrals: Benjamin Cotter MD [Primary Care Provider] - 1-2 days
[2021-07-02 02:33] LABS: Basophils % (A) 0 %; Eosinophils # (A) 0.3 k/uL (0-0.7); Eosinophils % (A) 2 %; HCT 41.4 % (34.0-46.0); HGB 13.3 gm/dL (11.4-16.0); Lymphocytes # (A) 1.9 k/uL (1.0-4.8); Lymphocytes % (A) 18 %; MCH 30.3 pg (25.0-35.0); MCHC 32.1 g/dL (31.0-37.0); MCV 94.4 fL (80.0-100.0); Mean Platelet Volume 7.4; Monocytes # (A) 0.4 k/uL (0-1.0); Monocytes % (A) 4 %; Neutrophils # (A) 8.1 k/uL (1.3-7.7); Neutrophils % (A) 75 %; Platelet Count 331 k/uL (150-450); RBC 4.38 m/uL (3.80-5.40); RDW 13.8 % (11.5-15.5); WBC 10.8 k/uL (3.8-10.6)
[2021-07-02 02:53] LABS: ALT 30 U/L (4-34); African American GFR (CKD) >90 (>60 ml/min/1.73 sqM); Amylase 89 U/L (30-110); Anion Gap 9 mmol/L; Blood Urea Nitrogen 18 mg/dL (7-17); Calcium 9.3 mg/dL (8.4-10.2); Carbon Dioxide 23 mmol/L (22-30); Chloride 107 mmol/L (98-107); Lipase 343 U/L (23-300); Non-African American GFR(CKD) 90 (>60 ml/min/1.73 sqM); Sodium 139 mmol/L (137-145)
[2021-07-02 03:10] LABS: Albumin 4.8 g/dL (3.5-5.0); Glucose 101 mg/dL (74-99); Total Protein 7.9 g/dL (6.3-8.2)
[2021-07-02 03:11] LABS: AST 50 U/L (14-36); Alkaline Phosphatase 93 U/L (38-126); Total Bilirubin 1.2 mg/dL (0.2-1.3)
--- NOTE | 2021-07-02 03:49 | CT ---
EXAMINATION TYPE: CT abdomen pelvis w con DATE OF EXAM: 07/02/2021 COMPARISON: 02/10/2021 HISTORY: Mid to Uppr Abd Pain CT DLP: 689.20 mGycm Automated exposure control for dose reduction was used. CONTRAST: Performed with IV Contrast, patient injected with 100 mL of Isovue 300. The lung bases are clear. There is no pleural effusion. Heart size is normal. There is no pericardial effusion. The liver or spleen stomach gallbladder pancreas appear intact. The bile ducts are not dil ated. There is no adrenal mass. Kidneys show satisfactory contrast opacification. There is no hydronephrosi s. Delayed images show normal renal excretion. There is no retroperitoneal adenopathy. Bladder disten ds smoothly. There is no inguinal hernia. There is no fluid in the pelvis. There is no mesenteric edema. There is no ascites or free air. There is no evidence of a bowel obstru ction. Appendix not clearly seen. No sign of thickened appendix. There is mild lumbar dextroscoliosis . There is some degenerative spurring in the lumbar spine. Bony pelvis is intact. Hip joints are inta ct. IMPRESSION: No acute abnormality of the abdomen and pelvis. There is clearing of the inflammatory changes consist ent with pancreatitis on the old exam.
[2021-07-02] MEDS ORDERED: AMOXIC-POT CLAV 875MG STARTER PACK 2 TAB BTL PO STA (03:51)
[2021-07-02] MEDS ORDERED: AMOXIC-POT CLAV 875-125MG 1 EACH TAB PO STA (03:51)
[2021-07-02] MEDS ORDERED: PHENAZOPYRIDINE 200 MG TAB PO STA (04:09)
[2021-07-02] MEDS ORDERED: KETOROLAC 15 MG/ML 1 ML VIAL IVP STA (04:09)
[2021-07-02 05:10] VITALS: BP 132/70; PULSE 77; RESP 15; TEMP 98.4
== END 2021-07-02 05:06 | disposition home or self-care (01) ==
LOC: EC 00:38
DX: N39.0 Urinary tract infection, site not specified (principal); E78.5 Hyperlipidemia, unspecified; K21.9 Gastro-esophageal reflux disease without esophagitis; F41.9 Anxiety disorder, unspecified; Z72.89 Other problems related to lifestyle; Z87.891 Personal history of nicotine dependence; Z79.899 Other long term (current) drug therapy
CPT/HCPCS: 36415; 80053; 82150; 83690; 85025; 81001; 87086; 87077; 87186; 74177; 99284; 96365; 96375; J0696; J1885; Q9967

== ENCOUNTER → 2021-07-23 | Outpatient (CLI) | payer MEDICARE, BC ==
--- NOTE | 2021-07-23 16:25 | BD ---
EXAMINATION TYPE: Axial Bone Density DATE OF EXAM: 07/23/2021 COMPARISON: 2018 CLINICAL HISTORY: Postmenopausal screening Height: 5 FT 4 3/4 IN Weight: 136 FRAX RISK QUESTIONS: Alcohol (3 or more units per day): NO Family History (Parent hip fracture): NO Glucocorticoids (More than 3mos): NO (Ex: prednisone, prednisolone, methylprednisolone, dexamethasone, and hydrocortisone). History of Fracture in Adulthood: YES Secondary Osteoporosis: 1. Type 1 Diabetes: NO 2. Hyperthyroidism: NO 3. Menopause before 45: NO 4. Malnutrition: NO 5. Chronic liver disease: NO Rheumatoid Arthritis: NO Current Tobacco Use: NO RISK FACTORS HISTORY OF: Surgery to Spine/Hip(right/left)/Wrist (right/left): NO Family History of Osteoporosis: NO Active: YES Diet low in dairy products/other sources of calcium: NO Postmenopausal woman: YES Take estrogen and/or progesterone medications: TOOK YEARS AGO NOT FOR LONG Lost more than 2 inches in height since high school: YES Frequent falls: NO Poor Health: GOOD Hyperparathyroidism: NO Adrenal Insufficiency: NO MEDICATIONS: Additional Medications: ATORVASTATIN, OMEPRAZOLE, ASPIRIN Additional History: EXAM MEASUREMENTS: Bone mineral densitometry was performed using the [employer] System. Bone mineral density as measured about the Lumbar spine is: ----- L1-L4(G/cm2): 1.188 T Score Values are as follows: ----- L2: 0.4 ----- L3: 0.2 ----- L4: 0.1 ----- L1-L4: 0.1 Bone mineral density has: INCREASED 1.4 % since study of: 2017 Bone mineral density about the R hip (g/cm2): 0.758 Bone mineral density about the L hip (g/cm2): 0.834 T Score values are as follows: -----R Neck: -2.0 -----L Neck: -1.5 -----R Total: -1.7 -----L Total: -1.7 Bone mineral density has: DECREASED -4.3 % since study of: 2018 IMPRESSION: Osteopenia (T Score between -2.5 and -1). There is slightly increased risk of fracture and the patient may be considered for treatment. Re-Screen 2-5 years. NOTE: T-SCORE=SD OF THE YOUNG ADULT MEAN.
== END | disposition home or self-care (01) ==
LOC: RADBDWWP 08:01
PROVIDERS: ATTEND Obstetrics & Gynecology
DX: M85.89 Other specified disorders of bone density and structure, multiple sites (principal); Z78.0 Asymptomatic menopausal state
CPT/HCPCS: 77080

== ENCOUNTER → 2021-07-23 | Outpatient (CLI) | payer MEDICARE, BC ==
[2021-07-23 15:01] LABS: Amylase 67 U/L (23-121); Chol/HDL Ratio 2.26 Ratio; LDL Cholesterol,Calculated 61.5 mg/dL (0.0-131.0); Lipase 30 U/L (14-63)
[2021-07-23 15:03] LABS: ALT 22 U/L (8-44); AST 31 U/L (13-35); African American GFR (CKD) 87.2 (60.0-200.0); Albumin 4.8 g/dL (3.8-4.9); Albumin/Globulin Ratio 2.09 (1.60-3.17); Alkaline Phosphatase 93 U/L (41-126); BUN/Creat Ratio 15.75 Ratio (12.00-20.00); Blood Urea Nitrogen 12.6 mg/dL (9.0-27.0); Calcium 9.6 mg/dL (8.7-10.3); Carbon Dioxide 24.6 mmol/L (20.0-27.5); Chloride 107 mmol/L (96-109); Globulin 2.3 g/dL (1.6-3.3); Glucose 86 mg/dL (70-110); Non-African American GFR(CKD) 75.2 (60.0-200.0); Potassium 4.3 mmol/L (3.5-5.5); Sodium 142 mmol/L (135-145); Total Protein 7.1 g/dL (6.2-8.2)
[2021-07-23 15:29] LABS: Basophils # (A) 0.03 X 10*3/uL (0.00-0.10); Basophils % (A) 0.7 %; Eosinophils # (A) 0.09 X 10*3/uL (0.04-0.35); HGB 12.6 g/dL (12.0-15.0); Immature Grans, Automated 0.4 %; Lymphocytes # (A) 1.75 X 10*3/uL (0.90-5.00); MCH 29.6 pg (27.0-32.0); MCHC 31.5 g/dL (32.0-37.0); MCV 94.1 fL (80.0-97.0); Mean Platelet Volume 11.3 fL (9.5-12.2); Monocytes # (A) 0.31 X 10*3/uL (0.20-1.00); Monocytes % (A) 6.9 %; NRBC Per 100 WBC 0 /100 WBCS (0.0-0.0); Neutrophils # (A) 2.29 X 10*3/uL (1.80-7.70); Platelet Count 246 X 10*3/uL (140-440); RBC 4.25 X 10*6/uL (4.10-5.20); RBC Morphology NORMAL; RDW 13.7 % (11.5-14.5); WBC 4.49 X 10*3/uL (4.50-10.00)
== END | disposition home or self-care (01) ==
LOC: LABWHC1 08:06
PROVIDERS: ATTEND Family Medicine
DX: Z13.220 Encounter for screening for lipoid disorders (principal); K85.90 Acute pancreatitis without necrosis or infection, unspecified
CPT/HCPCS: 36415; 80053; 80061; 82150; 83690; 85025

== ENCOUNTER 2021-11-13 08:53 | Inpatient (IN) | payer MEDICARE, BC ==
[2021-11-13] MEDS ORDERED: MORPHINE SULFATE 4 MG/ML SYRINGE IV STA (09:26)
[2021-11-13] MEDS ORDERED: ONDANSETRON 4 MG/2 ML VIAL IVP STA (09:26)
[2021-11-13 09:41] LABS: Basophils % (A) 1 %; Eosinophils # (A) 0.1 k/uL (0-0.7); Eosinophils % (A) 2 %; HCT 42.4 % (34.0-46.0); HGB 13.5 gm/dL (11.4-16.0); Lymphocytes # (A) 1.8 k/uL (1.0-4.8); Lymphocytes % (A) 25 %; MCH 29.5 pg (25.0-35.0); MCHC 31.8 g/dL (31.0-37.0); MCV 92.7 fL (80.0-100.0); Mean Platelet Volume 7.2; Monocytes # (A) 0.4 k/uL (0-1.0); Monocytes % (A) 5 %; Neutrophils # (A) 4.9 k/uL (1.3-7.7); Neutrophils % (A) 67 %; Platelet Count 315 k/uL (150-450); RBC 4.57 m/uL (3.80-5.40); WBC 7.4 k/uL (3.8-10.6)
[2021-11-13 09:56] LABS: INR 0.8 (<1.2); Partial Thromboplastin Time 23.4 sec (22.0-30.0); Prothrombin Time 9.5 sec (9.0-12.0)
[2021-11-13 10:04] LABS: ALT 21 U/L (4-34); AST 33 U/L (14-36); African American GFR (CKD) >90 (>60 ml/min/1.73 sqM); Albumin 4.8 g/dL (3.5-5.0); Alkaline Phosphatase 109 U/L (38-126); Anion Gap 10 mmol/L; Blood Urea Nitrogen 13 mg/dL (7-17); Calcium 9.5 mg/dL (8.4-10.2); Carbon Dioxide 25 mmol/L (22-30); Chloride 106 mmol/L (98-107); Glucose 101 mg/dL (74-99); Lipase 100 U/L (23-300); Magnesium 2.1 mg/dL (1.6-2.3); Non-African American GFR(CKD) 84 (>60 ml/min/1.73 sqM); Potassium 4.4 mmol/L (3.5-5.1); Sodium 141 mmol/L (137-145); Total Bilirubin 0.5 mg/dL (0.2-1.3); Total Protein 7.7 g/dL (6.3-8.2)
--- NOTE | 2021-11-13 10:13 | CT ---
EXAMINATION TYPE: CT angio thor/abd pel aorta DATE OF EXAM: 11/13/2021 COMPARISON: Prior CT abdomen and pelvis July 02, 2021 HISTORY: back pain radiating up through chest CT DLP: 1199.4 mGycm. Automated Exposure Control for Dose Reduction was Utilized. CONTRAST: CTA scan of the thorax, abdomen and pelvis is performed without and with IV Contrast, patient injecte d with 100 mL of Isovue 370. Three-D reconstructed images are created on a independent workstation an d reviewed. FINDINGS: VASCULAR: Satisfactory enhancement of the central pulmonary arteries. Satisfactory enhancement of the aorta without dissection or aneurysm. Normal three-vessel origin from the arch without significant s tenosis. Normal origin of the celiac artery and SMA without significant stenosis. Single bilateral re nal arteries without significant stenosis. Patent PAN. Patent iliac vessels without significant steno sis into the femoral vessels bilateral groin. No AAA. LUNGS: The lungs are grossly clear, there is no concerning parenchymal mass or nodule identified. T here is no pleural effusion or pneumothorax seen. The tracheobronchial tree is patent. MEDIASTINUM: There are no greater than 1 cm hilar or mediastinal lymph nodes. No cardiomegaly or pe ricardial effusion is seen. LIVER/GB: No significant abnormality is appreciated. PANCREAS: Mildly dilated pancreatic duct redemonstrated with some tortuous course in the head, no def initive mass. SPLEEN: No significant abnormality is seen. ADRENALS: No significant abnormality is seen. KIDNEYS: No significant abnormality is seen. BOWEL: Some diverticula in the sigmoid colon left pelvis. No CT evidence for acute diverticulitis. Mi ld to moderate diffuse colonic fecal prominence. No suspicious small or large bowel dilatation. GENITAL ORGANS: No gross abnormality seen. LYMPH NODES: No greater than 1cm abdominal or pelvic lymph nodes are appreciated. OSSEOUS STRUCTURES: Underlying S-shaped scoliosis. Straightening of the thoracolumbar spine on sagitt al images. Multilevel disc space narrowing in the lumbar spine. Posterior spur disc complexes efface the anterior thecal sac at a few levels. Facet arthropathy lower lumbar levels. OTHER: No significant additional abnormality is seen. IMPRESSION: No CT evidence for aortic aneurysm or dissection. Scoliosis with straightening of spine o n sagittal images and multilevel degenerative changes noted. [id number] diffuse colonic fecal s tasis. No bowel obstruction.
--- NOTE | 2021-11-13 11:04 | ED ---
Chest Pain HPI - General Chief Complaint: Chest Pain Stated Complaint: abd pain, nausea, heartburn Time Seen by Provider: 11/13/21 09:00 Source: patient Mode of arrival: ambulatory Limitations: no limitations - History of Present Illness Initial Comments: 71 year old female presents emergency room and reporting abdominal pain that radiates to her chest and back. It woke her from sleep around 5:00 this morning. States it's been constant in nature, graded 7 out of 10. Cramping in nature. No associated diarrhea, constipation, black or bloody stools. No issues with her urination. Denies any vaginal bleeding or discharge. She took an omeprazole at home and she was having a lot of reflux. Denies history of coronary disease. When in to see her primary care doctor who sent her into the hospital for evaluation of aortic dissection. - Related Data Home Medications Medication Instructions Recorded Confirmed Omeprazole 40 mg PO AC-BRKFST 04/02/21 11/13/21 Estradiol Cream [Estrace Cream 1 gm VAGINAL TH@2100 11/13/21 11/13/21 0.01%] Rosuvastatin Calcium [Crestor] 40 mg PO HS 11/13/21 11/13/21 Allergies Allergy/AdvReac Type Severity Reaction Status Date / Time erythromycin base Allergy Rash/Hives Verified 11/13/21 12:07 nitrofurantoin Allergy Rash/Hives Verified 11/13/21 12:07 [From Macrobid] nitrofurantoin Allergy Rash/Hives Verified 11/13/21 12:07 macrocrystalline [From Macrobid] Sulfa (Sulfonamide Allergy Rash/Hives Verified 11/13/21 12:07 Antibiotics) Review of Systems ROS Statement: Those systems with pertinent positive or pertinent negative responses have been documented in the HPI. ROS Other: All systems not noted in ROS Statement are negative. EKG Findings - EKG Comments: EKG Findings:: EKG demonstrates sinus rhythm with a rate of 62. CO interval 182. QRS 88. QTC 418. No acute ST segment elevations or depressions Past Medical History Past Medical History: GERD/Reflux, Hyperlipidemia Additional Past Medical History / Comment(s): back pain, IBS History of Any Multi-Drug Resistant Organisms: None Reported Past Surgical History: Appendectomy, Bladder Surgery, Hysterectomy, Tonsillectomy Additional Past Surgical History / Comment(s): rectocele Past Anesthesia/Blood Transfusion Reactions: No Reported Reaction Past Psychological History: Anxiety Smoking Status: Former smoker Past Alcohol Use History: Rare Past Drug Use History: None Reported - Past Family History Mother Family Medical History: Cancer General Exam Limitations: no limitations General appearance: alert, in no apparent distress Head exam: Present: atraumatic, normocephalic, normal inspection Eye exam: Present: normal appearance, PERRL, EOMI. Absent: scleral icterus, conjunctival injection, periorbital swelling ENT exam: Present: normal exam, mucous membranes moist Neck exam: Present: normal inspection. Absent: tenderness, meningismus, lymphadenopathy Respiratory exam: Present: normal lung sounds bilaterally. Absent: respiratory distress, wheezes, rales, rhonchi, stridor Cardiovascular Exam: Present: regular rate, normal rhythm, normal heart sounds. Absent: systolic murmur, diastolic murmur, rubs, gallop, clicks GI/Abdominal exam: Present: soft, tenderness (rlq pain), normal bowel sounds. Absent: distended, guarding, rebound, rigid Extremities exam: Present: normal inspection, full ROM, normal capillary refill. Absent: tenderness, pedal edema, joint swelling, calf tenderness Back exam: Present: normal inspection Neurological exam: Present: alert, oriented X3, CN II-XII intact Psychiatric exam: Present: normal affect, normal mood Skin exam: Present: warm, dry, intact, normal color. Absent: rash Course Vital Signs 11/13/21 11/13/21 11/13/21 08:59 11:03 14:36 Temperature 98.1 F Pulse Rate 72 62 77 Pulse Rate [ Pulse Oximetery ] Respiratory 20 16 18 Rate Blood Pressure 133/80 118/77 130/72 Blood Pressure [Left Arm] O2 Sat by Pulse 98 97 99 Oximetry 11/13/21 15:00 Temperature 97.7 F Pulse Rate Pulse Rate [ 73 Pulse Oximetery ] Respiratory 16 Rate Blood Pressure Blood Pressure 125/74 [Left Arm] O2 Sat by Pulse 100 Oximetry Chest Pain MDM - MDM Upon arrival patient was placed into trauma 2. Thorough history and physical exam is performed. Patient placed on continuous pulse ox and cardiac monitorin g. 12-lead EKG is obtained which demonstrates no acute ST segment elevation. IV is established and laboratory studies were conducted. Patient is sent over for a CT of her thoracic aorta due to concerns for aortic dissection by her PCP. On my exam, patient has palpable pain in the RLQ however is s/p appendectomy. Laboratory studies are reviewed and troponin is negative. CT of the chest demonstrates no evidence of dissection or aneurysm. There is mild to moderate diffuse colonic fecal stasis. Results are discussed the patient. Magnesium hydroxide and Colace are ordered. Offered admission to trend her troponins which the patient agreed to. Spoke with Dr. Whiteside who agreed to admit the patient. She is currently awaiting a bed on the floor Disposition Clinical Impression: Chest pain Disposition: ADMITTED IP TO THIS HOSP Condition: Stable Is patient prescribed a controlled substance at d/c from ED?: No Time of Disposition: 11:05 Decision to Admit Reason: Admit from EC Decision Date: 11/13/21 Decision Time: 11:05
[2021-11-13] MEDS ORDERED: DOCUSATE 100 MG CAP PO PRN (11:06)
[2021-11-13] MEDS ORDERED: NALOXONE 0.4 MG/ML 1 ML VIAL IV PRN (11:06)
[2021-11-13] MEDS ORDERED: MAGNESIUM HYDROXIDE 2,400 MG/10 ML CUP PO PRN (11:06)
[2021-11-13] MEDS ORDERED: ACETAMINOPHEN TAB 325 MG TAB PO STA (13:29)
--- NOTE | 2021-11-13 16:02 | P.HPIM ---
History of Present Illness Chief Complaint: Abdominal pain radiating to the chest Patient is a 71-year-old female with a past medical history significant for hyperlipidemia, GERD the presents a hospital complaining of right upper quadrant pain that is radiating up to the chest. Patient was advised to visit the emergency department by her PCP to have aortic dissection. CT was completed which was negative. Patient states that this started today around 5 AM which woke her up. Currently she rates the pain a 5 or 6 out of 10. She also assoc iated this pain getting worse with food specifically fatty food. Patient does have a prior history of appendectomy however no issues with her gallbladder as per patient. In the emergency department vital signs have been reviewed and unremarkable, cardiac troponin negative 1. Cardiology was consulted from the emergency department. Past Medical History Past Medical History: GERD/Reflux, Hyperlipidemia Additional Past Medical History / Comment(s): back pain, IBS History of Any Multi-Drug Resistant Organisms: None Reported Past Surgical History: Appendectomy, Bladder Surgery, Hysterectomy, Tonsillectomy Additional Past Surgical History / Comment(s): rectocele Past Anesthesia/Blood Transfusion Reactions: No Reported Reaction Past Psychological History: Anxiety Smoking Status: Former smoker Past Alcohol Use History: Rare Past Drug Use History: None Reported - Past Family History Mother Family Medical History: Cancer Medications and Allergies Home Medications Medication Instructions Recorded Confirmed Type Omeprazole 40 mg PO AC-BRKFST 04/02/21 11/13/21 History Estradiol Cream [Estrace Cream 1 gm VAGINAL TH@2100 11/13/21 11/13/21 History 0.01%] Rosuvastatin Calcium [Crestor] 40 mg PO HS 11/13/21 11/13/21 History Allergies Allergy/AdvReac Type Severity Reaction Status Date / Time erythromycin base Allergy Rash/Hives Verified 11/13/21 12:07 nitrofurantoin Allergy Rash/Hives Verified 11/13/21 12:07 [From Macrobid] nitrofurantoin Allergy Rash/Hives Verified 11/13/21 12:07 macrocrystalline [From Macrobid] Sulfa (Sulfonamide Allergy Rash/Hives Verified 11/13/21 12:07 Antibiotics) Physical Exam Vitals: Vital Signs Temp Pulse Pulse Resp BP BP Pulse Ox 11/13/21 15:00 97.7 F 73 16 125/74 100 11/13/21 14:36 77 18 130/72 99 11/13/21 11:03 62 16 118/77 97 11/13/21 08:59 98.1 F 72 20 133/80 98 Intake and Output 11/13/21 11/13/21 11/13/21 06:59 14:59 22:59 Other: # Voids 1 Weight 63.503 kg 63.503 kg Gen. patient is awake alert oriented 3 Cardio normal S1/S2 Respiratory no wheezing or rhonchi appreciated Abdomen right upper quadrant tenderness and some right lower quadrant tenderness noted. Extremity no pitting edema noted Results CBC & Chem 7: 11/13/21 09:20 11/13/21 09:20 Labs: Abnormal Lab Results - Last 24 Hours (Table) 11/13/21 Range/Units 09:20 Glucose 101 H (74-99) mg/dL Thrombosis Risk Factor Assmnt - Choose All That Apply Any of the Below Risk Factors Present?: No Other Risk Factors: Yes Each Risk Factor Represents 2 Points: Age 61-74 years Thrombosis Risk Factor Assessment Total Risk Factor Score: 2 Thrombosis Risk Factor Assessment Level: Low Risk Assessment and Plan Assessment: Assessment/plan #1 chest pain most likely referred pain rule out ACS less likely versus GERD #2 right upper quadrant pain rule out cholelithiasis/cholecystitis #3 hyperlipidemia #4 GERD Plan: -Admit to medicine for close monitoring -Aspiration/fall precaution -We'll obtain ultrasound of the right upper quadrant this seems to be more related to the abdomen and chest pain -Continue with Protonix symptoms can mimic acid reflux is well -Cardiology consulted from the emergency department, cardiac troponin negative 1 2-D echocardiogram ordered -Pain control when necessary -Risk stratify patient with lipid panel, hemoglobin A 1C- DVT prophylaxis Lovenox.
[2021-11-13] MEDS: IBUPROFEN 400 MG TAB PO PRN (16:44)
[2021-11-13 18:06] LABS: Appearance,Urine Cloudy (Clear); Bilirubin,Urine Negative (Negative); Blood,Urine Small (Negative); Color,Urine Yellow; Glucose,Urine (UA) Negative (Negative); Ketones,Urine Negative (Negative); Leukocyte Esterase,Urine Large (Negative); Nitrite,Urine Positive (Negative); Protein,Urine Trace (Negative); RBC,Urine 89 /hpf (0-5); Specific Gravity,Urine 1.041 (1.001-1.035); Squamous Epithelial Cell,Urine 2 /hpf (0-4); Urobilinogen,Urine <2.0 mg/dL (<2.0); WBC,Urine >182 /hpf (0-5)
[2021-11-13] MEDS: ATORVASTATIN 80 MG TAB PO SCH (20:46)
[2021-11-13] MEDS ORDERED: PHENAZOPYRIDINE 100 MG TAB PO PRN (22:17)
[2021-11-13] MEDS: ACETAMINOPHEN TAB 325 MG TAB PO PRN (22:21)
[2021-11-13 22:36] LABS: Chol/HDL Ratio 2.39 Ratio; Magnesium 2.3 mg/dL (1.5-2.4); Phosphorus 3.5 mg/dL (2.4-5.1); VLDL Calculation 14.68 mg/dL (5.00-40.00)
[2021-11-14] MEDS: IBUPROFEN 400 MG TAB PO PRN ×2 (05:32→17:17)
--- NOTE | 2021-11-14 08:02 | P.CRDCN ---
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 She states this was much worse than her heartburn/GERD in the past. The pain persisted however has predominantly improved and now she is mainly only complaining of heartburn sensation. She denies any other nausea, diaphoresis or shortness breath. She admits to some diaphoresis if she overdoes it over the last few years. She follows with Dr. Mills. Recent stress test from March 2021 showed no inducible ischemia. CTA chest abdomen and pelvis showed no aneurysm or dissection no bowel obstruction. EKG showing normal sinus rhythm, no significant ST or T wave abnormalities. Troponin normal 3. She was found to have a urinary tract infection. REVIEW OF SYSTEMS At the time of my exam: CONSTITUTIONAL: Denies fever or chills. CARDIOVASCULAR: +chest pain, no shortness of breath, orthopnea, PND or palpitations. RESPIRATORY: Denies cough. GASTROINTESTINAL: +abdominal pain, no diarrhea, constipation, nausea or vomiting. MUSCULOSKELETAL: Denies myalgias. NEUROLOGIC: Denies numbness, tingling or weakness. ENDOCRINE: Denies fatigue, weight change, polydipsia or polyurina. GENITOURINARY: Denies burning, hematuria or urgency with micturation. HEMATOLOGIC: Denies history of anemia or bleeding. PHYSICAL EXAMINATION Vital signs reviewed. CONSTITUTIONAL: No apparent distress. HEENT: Head is normocephalic. Pupils are equal, round. Sclerae anicteric. Mucous membranes of the mouth are moist. No JVD. No carotid bruit. CHEST EXAMINATION: Lungs are clear to auscultation. No chest wall tenderness is noted on palpation or with deep breathing. HEART EXAMINATION: Regular rate and rhythm. S1, S2 heard. No murmurs, gallops or rub. ABDOMEN: Soft, nontender. Positive bowel sounds. EXTREMITIES: 2+ peripheral pulses, no lower extremity edema and no calf tenderness. NEUROLOGIC EXAMINATION: Patient is awake, alert and oriented x3. ASSESSMENT 1. Atypical abdominal and chest pain appears more related to GI source/heartburn do not suspect cardiac etiology 2. Episodes of diaphoresis over the last 2 years, suspect more metabolic/endocrine etiology. Normal stress echo March 2021 3. Hyperlipidemia 4. Asymptomatic carotid artery stenosis, 80% per patient 5. 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 CTA did not show any significant dissection or aneurysm. Currently symptoms of chest pain appear more related to heartburn. Patient with normal stress echo from March 2021. Continue with current regimen, patient stable for discharge home with outpatient follow-up with Dr. Mills in 1 week. Past Medical History Past Medical History: GERD/Reflux, Hyperlipidemia Additional Past Medical History / Comment(s): back pain, IBS History of Any Multi-Drug Resistant Organisms: None Reported Past Surgical History: Appendectomy, Bladder Surgery, Hysterectomy, Tonsillec marianne Additional Past Surgical History / Comment(s): rectocele Past Anesthesia/Blood Transfusion Reactions: No Reported Reaction Past Psychological History: Anxiety Smoking Status: Former smoker Past Alcohol Use History: Rare Past Drug Use History: None Reported - Past Family History Mother Family Medical History: Cancer Medications and Allergies Home Medications Medication Instructions Recorded Confirmed Type Omeprazole 40 mg PO AC-BRKFST 04/02/21 11/13/21 History Estradiol Cream [Estrace Cream 1 gm VAGINAL TH@2100 11/13/21 11/13/21 History 0.01%] Rosuvastatin Calcium [Crestor] 40 mg PO HS 11/13/21 11/13/21 History Allergies Allergy/AdvReac Type Severity Reaction Status Date / Time erythromycin base Allergy Rash/Hives Verified 11/13/21 12:07 nitrofurantoin Allergy Rash/Hives Verified 11/13/21 12:07 [From Macrobid] nitrofurantoin Allergy Rash/Hives Verified 11/13/21 12:07 macrocrystalline [From Macrobid] Sulfa (Sulfonamide Allergy Rash/Hives Verified 11/13/21 12:07 Antibiotics) Physical Exam Vitals: Vital Signs Temp Pulse Pulse Resp BP BP Pulse Ox 11/14/21 07:00 98.2 F 69 18 109/79 100 11/14/21 01:55 97.6 F 68 15 103/67 97 11/14/21 01:15 69 11/13/21 20:00 69 15 11/13/21 19:28 97.5 F L 69 15 119/75 99 11/13/21 15:00 97.7 F 73 16 125/74 100 11/13/21 14:36 77 18 130/72 99 11/13/21 11:03 62 16 118/77 97 11/13/21 08:59 98.1 F 72 20 133/80 98 Intake and Output 11/13/21 11/14/21 11/14/21 22:59 06:59 14:59 Intake Total 0 Balance 0 Intake: Oral 0 Other: Voiding Method Toilet Toilet # Voids 1 1 Weight 63.503 kg Results 11/13/21 09:20 11/13/21 09:20 Cardiac Enzymes 11/13/21 11/13/21 11/13/21 Range/Units 09:20 09:20 12:08 AST 33 (14-36) U/L Troponin I <0.012 <0.012 (0.000-0.034) ng/mL 11/13/21 Range/Units 16:16 AST (14-36) U/L Troponin I <0.012 (0.000-0.034) ng/mL Coagulation 11/13/21 Range/Units 09:20 PT 9.5 (9.0-12.0) sec APTT 23.4 (22.0-30.0) sec Lipids 11/13/21 Range/Units 16:16 Triglycerides 73.40 (0.00-149.00) mg/dL Cholesterol 137.00 (0.00-200.00) mg/dL HDL Cholesterol 57.30 (40.00-60.00) mg/dL Cholesterol/HDL Ratio 2.39 Ratio CBC 11/13/21 Range/Units 09:20 WBC 7.4 (3.8-10.6) k/uL RBC 4.57 (3.80-5.40) m/uL Hgb 13.5 (11.4-16.0) gm/dL Hct 42.4 (34.0-46.0) % Plt Count 315 (150-450) k/uL Comprehensive Metabolic Panel 11/13/21 Range/Units 09:20 Sodium 141 (137-145) mmol/L Potassium 4.4 (3.5-5.1) mmol/L Chloride 106 (98-107) mmol/L Carbon Dioxide 25 (22-30) mmol/L BUN 13 (7-17) mg/dL Creatinine 0.74 (0.52-1.04) mg/dL Glucose 101 H (74-99) mg/dL Calcium 9.5 (8.4-10.2) mg/dL AST 33 (14-36) U/L ALT 21 (4-34) U/L Alkaline Phosphatase 109 (38-126) U/L Total Protein 7.7 (6.3-8.2) g/dL Albumin 4.8 (3.5-5.0) g/dL Current Medications Generic Name Dose Route Start Last Admin Trade Name Freq PRN Reason Stop Dose Admin Acetaminophen 650 mg 11/13/21 16:12 11/13/21 22:21 Acetaminophen Tab 325 Mg Tab PO 650 mg Q6HR PRN Administration Fever and/ or Pain Atorvastatin Calcium 80 mg 11/13/21 21:00 11/13/21 20:46 Atorvastatin 80 Mg Tab PO 80 mg HS ROYCE Administration Docusate Sodium 100 mg 11/13/21 11:06 Docusate 100 Mg Cap PO BID PRN Constipation Estradiol 1 applic 11/15/21 21:00 Estradiol 0.1 Mg/Gm Vaginal Cream 42.5 Gm Tube VAGINAL TH@2100 [facility] Ceftriaxone Sodium 1 gm/ 50 mls @ 100 mls/hr 11/13/21 18:45 11/13/21 20:44 Sodium Chloride IVPB 100 mls/hr Q24HR ROYCE Administration Protocol Ibuprofen 400 mg 11/13/21 16:11 11/14/21 05:32 Ibuprofen 400 Mg Tab PO 400 mg Q6HR PRN Administration Pain Magnesium Hydroxide 2,400 mg 11/13/21 11:06 Magnesium Hydroxide 2,400 Mg/10 Ml Cup PO DAILY PRN Constipation Naloxone HCl 0.2 mg 11/13/21 11:06 Naloxone 0.4 Mg/Ml 1 Ml Vial IV Q2M PRN Opioid Reversal Pantoprazole Sodium 40 mg 11/14/21 07:30 Pantoprazole 40 Mg Tablet PO AC-BRKFST [facility] Phenazopyridine HCl 100 mg 11/13/21 22:17 11/14/21 05:33 Phenazopyridine 100 Mg Tab PO 100 mg TID PRN Administration Pain/Discomfort Intake and Output 11/13/21 11/14/21 11/14/21 22:59 06:59 14:59 Intake Total 0 Balance 0 Intake: Oral 0 Other: Voiding Method Toilet Toilet # Voids 1 1 Weight 63.503 kg 11/13/21 09:20 11/13/21 09:20
--- NOTE | 2021-11-14 08:32 | US ---
EXAMINATION TYPE: US gallbladder DATE OF EXAM: 11/14/2021 COMPARISON: CT dated 11/13/2021, 07/02/2021 CLINICAL HISTORY: ruq. RUQ pain. Hx appendectomy. EXAM MEASUREMENTS: Liver Length: 13.2 cm Gallbladder Wall: 0.15 cm CBD: 0.37 cm Right Kidney: 10.3 x 5.0 x 3.2 cm Exam is limited due to overlying bowel gas. Pancreas: Slightly limited. *Pancreatic duct measures 0.3 cm at body. Liver: No evident mass or dilated intra or extrahepatic delivery duct, liver echotexture somewhat co arse. Gallbladder: Some internal echoes are seen within the gallbladder. Measures 9.5 cm in length-upper l imits. Evidence for sonographic Rivas's sign: No CBD: Portions seen appear wnl Right Kidney: No hydronephrosis or masses seen IMPRESSION: Coarse liver echotexture can be seen with hepatocellular disease, hepatic steatosis, jessica elate. There may be tumefactive sludge within the gallbladder, limited exam.
[2021-11-14] MEDS: PANTOPRAZOLE 40 MG TABLET PO SCH (09:05)
[2021-11-14] MEDS: HEPARIN SODIUM,PORCINE/PF 5,000 UNIT/0.5 ML SYRINGE SQ SCH ×2 (09:05→16:11)
[2021-11-14 10:26] LABS: Basophils # (A) 0.02 X 10*3/uL (0.00-0.10); Basophils % (A) 0.3 %; Eosinophils # (A) 0.14 X 10*3/uL (0.04-0.35); Eosinophils % (A) 2.3 %; HCT 39.4 % (37.2-46.3); HGB 12.3 g/dL (12.0-15.0); Immature Grans, Automated 0.3 %; Lymphocytes # (A) 1.83 X 10*3/uL (0.90-5.00); Lymphocytes % (A) 30.3 %; MCH 28.8 pg (27.0-32.0); MCHC 31.2 g/dL (32.0-37.0); MCV 92.3 fL (80.0-97.0); Mean Platelet Volume 10.2 fL (9.5-12.2); Monocytes # (A) 0.51 X 10*3/uL (0.20-1.00); Monocytes % (A) 8.4 %; NRBC Per 100 WBC 0 /100 WBCS (0.0-0.0); Neutrophils # (A) 3.52 X 10*3/uL (1.80-7.70); Neutrophils % (A) 58.4 %; Platelet Count 337 X 10*3/uL (140-440); RBC 4.27 X 10*6/uL (4.10-5.20); RDW 12.3 % (11.5-14.5); WBC 6.04 X 10*3/uL (4.50-10.00)
[2021-11-14 12:11] LABS: African American GFR (CKD) 84.1 (60.0-200.0); Anion Gap 11.2 mmol/L (10.00-18.00); BUN/Creat Ratio 18.2 Ratio (12.00-20.00); Calcium 9.2 mg/dL (8.7-10.3); Carbon Dioxide 22.8 mmol/L (20.0-27.5); Non-African American GFR(CKD) 72.6 (60.0-200.0); Potassium 4.7 mmol/L (3.5-5.5)
--- NOTE | 2021-11-14 14:23 | P.PN ---
Subjective Patient was examined at bedside today not complaining of any new symptomatology. She states that the urinary symptoms are slightly improving however still continues to complain of pain that does radiate. She has been evaluated by cardiology team recommending conservative management. Objective - Vital Signs Vital signs: Vital Signs Temp 98.4 F 11/14/21 14:14 Pulse 70 11/14/21 14:14 Resp 18 11/14/21 14:14 BP 118/79 11/14/21 14:14 Pulse Ox 99 11/14/21 14:14 FiO2 Intake & Output 11/13/21 11/14/21 11/14/21 18:59 06:59 18:59 Intake Total 0 80 Balance 0 80 Weight 63.503 kg Intake: Oral 0 80 Other: Voiding Method Toilet # Voids 1 1 3 - Exam Gen. patient is awake alert oriented 3 Cardio normal S1/S2 Respiratory no wheezing or rhonchi appreciated Abdomen right upper quadrant tenderness and some right lower quadrant tenderness noted. improving NO CVA tenderness noted. Extremity no pitting edema noted - Labs CBC & Chem 7: 11/14/21 07:10 11/14/21 07:10 Labs: Abnormal Lab Results - Last 24 Hours (Table) 11/13/21 11/14/21 Range/Units 17:55 07:10 MCHC 31.2 L (32.0-37.0) g/dL Urine Appearance Cloudy H (Clear) Ur Specific [place] 1.041 H (1.001-1.035) Urine Protein Trace H (Negative) Urine Blood Small H (Negative) Urine Nitrite Positive H (Negative) Ur Leukocyte Esterase Large H (Negative) Urine RBC 89 H (0-5) /hpf Urine WBC >182 H (0-5) /hpf Microbiology - Last 24 Hours (Table) 11/13/21 17:55 Urine Culture - Preliminary Urine,Clean Catch Assessment and Plan Assessment: Assessment/plan #1 chest pain most likely referred pain rule out ACS less likely versus GERD #2 abodminal discomfort secondary to UTI #3 hyperlipidemia #4 GERD Plan: -Admit to medicine for close monitoring -Aspiration/fall precaution -ultrasound of the right upper quadrant negative. -Continue with Protonix symptoms can mimic acid reflux is well -Cardiology consulted from the emergency department, cardiac troponin negative 1 2-D echocardiogram ordered -Pain control when necessary -UTI continue with IV rocephin reflex urine culture. -DVT prophylaxis Lovenox.
[2021-11-14] MEDS: ACETAMINOPHEN TAB 325 MG TAB PO PRN (14:31)
[2021-11-14] MEDS: ATORVASTATIN 80 MG TAB PO SCH (20:27)
[2021-11-15] MEDS: HEPARIN SODIUM,PORCINE/PF 5,000 UNIT/0.5 ML SYRINGE SQ SCH ×4 (00:26→21:46)
[2021-11-15] MEDS: PANTOPRAZOLE 40 MG TABLET PO SCH (09:12)
--- NOTE | 2021-11-15 13:12 | P.PN ---
Subjective Patient was examined at bedside today continues to complain of intractable pain specifically in the right upper/lower area that radiates to the back. States that her urinary frequency has improved slightly. Patient also states that abdominal discomfort gets worse with fatty food. Objective - Vital Signs Vital signs: Vital Signs Temp 97.9 F 11/15/21 07:00 Pulse 66 11/15/21 08:00 Resp 18 11/15/21 08:00 BP 114/77 11/15/21 07:00 Pulse Ox 100 11/15/21 07:00 FiO2 Intake & Output 11/14/21 11/15/21 11/15/21 18:59 06:59 18:59 Intake Total 320 236 Balance 320 236 Intake: Oral 320 236 Other: Voiding Method Toilet Toilet # Voids 3 1 - Exam Gen. patient is awake alert oriented 3 Cardio normal S1/S2 Respiratory no wheezing or rhonchi appreciated Abdomen right upper quadrant tenderness and some right lower quadrant tenderness noted. improving McMurphy sign negative. NO CVA tenderness noted. Extremity no pitting edema noted - Labs CBC & Chem 7: 11/14/21 07:10 11/14/21 07:10 Labs: Microbiology - Last 24 Hours (Table) 11/13/21 17:55 Urine Culture - Preliminary Urine,Clean Catch Gram Neg Bacilli Assessment and Plan Assessment: Assessment/plan #1 chest pain most likely referred pain rule out ACS less likely versus GERD #2 abodminal discomfort secondary to UTI #3 hyperlipidemia #4 GERD Plan: -Admit to medicine for close monitoring -Aspiration/fall precaution -ultrasound of the right upper quadrant reviewed suggestive some sludge however very nonspecific as imagings were clear due to gas. -Gen. surgery consulted to evaluate for cholelithiasis and ongoing right upper quadrant pain. -Cardiology consulted from the emergency department, cardiac troponin negative 2 - CT was reviewed negative for any dissection or aneurysm. -UTI continue with IV rocephin reflex urine culture. -DVT prophylaxis Lovenox. Disposition: Niece to be evaluated by general surgery she continues to complain of pain. Pending urine cultures as well.
[2021-11-15] MEDS ORDERED: ESTRADIOL 0.1 MG/GM VAGINAL CREAM 42.5 GM TUBE VAGINAL SCH (21:00)
[2021-11-15] MEDS: ATORVASTATIN 80 MG TAB PO SCH (21:45)
[2021-11-16 03:36] VITALS: RESP 16; TEMP 97.7
[2021-11-16] MEDS: HEPARIN SODIUM,PORCINE/PF 5,000 UNIT/0.5 ML SYRINGE SQ SCH (07:45)
[2021-11-16] MEDS: PANTOPRAZOLE 40 MG TABLET PO SCH (07:45)
[2021-11-16 08:21] VITALS: BP 112/69; PULSE 62
--- NOTE | 2021-11-16 20:51 | P.DS ---
Providers Date of admission: 11/15/21 09:49 Expected date of discharge: 11/16/21 Attending physician: Yashira Fowler, DO Consults: 11/16/21 07:50 Consult Physician Routine Consulting Provider: Jeffry Saenz Consult Reason/Comments: abdominal pain Do you want consulting provider notified?: Yes Primary care physician: Benjamin Cotter [facility] Course: Discharge Diagnosis: E coli UTI Atypical chest pain HLD GERD Hepatic steatosis Hospital Course: Patient is a 71-year-old female with recurrent urinary tract infections, hypertension, and GERD who presented to the hospital complaining of right upper quadrant pain radiating to the chest. Some concern for possible aortic dissection by her primary and she was referred to the ER. In the ER she underwent an extensive evaluation, vital signs were unremarkable, troponin was negative. She underwent a dedicated CT of the aorta which did not demonstrate any aneurysm or dissection but did show scoliosis and mild to moderate diffuse colonic fecal stasis. Cardiology was consulted from the ER. They felt her chest pain was atypical and recommended outpatient follow-up. Patient then complained of continued abdominal pain. She underwent a liver ultrasound which showed coarse liver echotexture, hepatic steatosis, possible sludge within the gallbladder but limited exam. She then complained of lower abdominal pain with pressure and some dysuria. She also complained of dark cloudy urine. She was found have possible urinary tract infection. Culture grew E. coli which was pansensitive. I discussed with the patient that she'll be discharged home. She was asking about her gallbladder sludge and I recommended that she continue to follow up as her liver numbers are within normal and there was not significant ductal dilatation. We'll jennifer discussion about her recurrent urinary tract infections. She has seen 3 different urologists including some at [facility]. I reiterated with the patient that you can have signs and symptoms similar to urinary tract infection such as dysuria or urinary frequency but without fever and leukocytosis (which is how she presented here) which are signs of chronic cystitis and not definitive urinary tract infection. I recommended that she continue to follow up if you have vomiting urology. She'll complete a course of Keflex, patient was unimpressed by this recommendation and she insists that Levaquin is the only thing that works. I did inform her that if her urine was pansensitive Levaquin would not indicated at this time, and E. Coli was [place] sensitive. After much discussion patient was agreeable to discharge. She should be placed on a bowl regiment as well if agreeable as constipation can lead to urinary retention. Patient seen and examined at bedside. She continues to have some lower abdominal cramping, also states that she intermittently have right upper quadrant pain when she is having fatty meals. We discussed the importance of outpatient follow-up and taking medications as prescribed. The remainder of our conversation is as dictated above. Vital signs reviewed and stable. General: non toxic, no distress, appears at stated age Derm: warm, dry Head: atraumatic, normocephalic, symmetric Eyes: EOMI, no lid lag, anicteric sclera Mouth: no lip lesion, mucus membranes moist Cardiovascular: S1S2 reg, no murmur, positive posterior tibial pulse bilateral, Lungs: CTA bilateral, no rhonchi, no rales , no accessory muscle use Abdominal: soft, nontender to palpation, no guarding, no appreciable organomegaly Ext: no gross muscle atrophy, no edema, no contractures Neuro: CN II-XI grossly intact, no focal neuro deficits Psych: Alert, oriented, appropriate affect A total of 33 minutes of time were spent preparing this complex discharge summary . Discharged on 11/16/21 Patient Condition at Discharge: Stable Plan - Discharge Summary Discharge Rx Participant: No New Discharge Prescriptions: New Cephalexin [Keflex] 500 mg PO Q12HR 3 Days #6 cap Phenazopyridine [Pyridium] 100 mg PO TID PRN #9 tab PRN Reason: Pain/Discomfort Continue Omeprazole 40 mg PO AC-BRKFST Rosuvastatin Calcium [Crestor] 40 mg PO HS Estradiol Cream [Estrace Cream 0.01%] 1 gm VAGINAL TH@2100 Discharge Medication List Omeprazole 40 mg PO AC-BRKFST 04/02/21 [History] Estradiol Cream [Estrace Cream 0.01%] 1 gm VAGINAL TH@2100 11/13/21 [History] Rosuvastatin Calcium [Crestor] 40 mg PO HS 11/13/21 [History] Cephalexin [Keflex] 500 mg PO Q12HR 3 Days #6 cap 11/16/21 [Rx] Phenazopyridine [Pyridium] 100 mg PO TID PRN #9 tab 11/16/21 [Rx] Follow up Appointment(s)/Referral(s): Armando Mills MD [STAFF PHYSICIAN] - 1 Week Cyndee,Benjamin D, MD [Primary Care Provider] - 1-2 days Patient Instructions/Handouts: Interstitial Cystitis (ED) Activity/Diet/Wound Care/Special Instructions: Activity: as tolerated Diet: Regular Special Instructions: Follow-up with your [facility] urologist. Discharge Disposition: HOME SELF-CARE
== END 2021-11-16 13:05 | disposition home or self-care (01) | DRG 689 ==
LOC: EC 08:53 → 6NMEDSUR 11:06 → OBSVTOIN 11-15 09:49
PROVIDERS: ADMIT Internal Medicine; ATTEND Internal Medicine
DX: N39.0 Urinary tract infection, site not specified (principal); I71.00 Dissection of unspecified site of aorta; B96.20 Unspecified Escherichia coli [E. coli] as the cause of diseases classified elsewhere; E78.5 Hyperlipidemia, unspecified; F41.9 Anxiety disorder, unspecified; K58.9 Irritable bowel syndrome, unspecified; I10 Essential (primary) hypertension; R35.0 Frequency of micturition; I65.29 Occlusion and stenosis of unspecified carotid artery; K21.9 Gastro-esophageal reflux disease without esophagitis; K76.0 Fatty (change of) liver, not elsewhere classified; R07.89 Other chest pain; M41.9 Scoliosis, unspecified; K59.89 Other specified functional intestinal disorders; Z87.440 Personal history of urinary (tract) infections; Z87.891 Personal history of nicotine dependence; Z90.49 Acquired absence of other specified parts of digestive tract; Z90.710 Acquired absence of both cervix and uterus; Z87.19 Personal history of other diseases of the digestive system; Z88.2 Allergy status to sulfonamides; Z88.8 Allergy status to other drugs, medicaments and biological substances
CPT/HCPCS: 36415; 71275; 74174; 76705; 80048; 80053; 80061; 81001; 83036; 83690; 83735; 83880; 84100; 84484; 85025; 85610; 85730; 87077; 87086; 87186; 93005; 96374; 96375; 99285

== ENCOUNTER → 2022-01-23 | Outpatient (CLI) | payer MEDICARE, BC ==
[~2022-01-23] MED LIST changes: -ACETAMINOPHEN TAB 325 MG TAB PO PRN; +BEBTELOVIMAB (EUA) 175 MG/2 ML VIAL IV NR; -SODIUM CHLORIDE 0.9% 50 ML IVPB ONE; +SODIUM CHLORIDE 0.9% 500 ML 500 ML in EMPTY BAG 1 BAG IV PRN; -SOTROVIMAB (EUA) 500 MG in SODIUM CHLORIDE 0.9% 100 ML IVPB ONE
[2022-01-23 14:03] VITALS: BP 138/74; PULSE 77; RESP 16; TEMP 98.4
== END ==
LOC: PROCWHC3 12:56
PROVIDERS: ATTEND Physician Assistant Medical
DX: U07.1 COVID-19 (principal); Z88.1 Allergy status to other antibiotic agents; Z88.2 Allergy status to sulfonamides
CPT/HCPCS: Q0222; M0222

== ENCOUNTER 2022-06-20 15:27 | Emergency (ER) | payer MEDICARE, BC ==
[2022-06-20] MEDS ORDERED: SODIUM CHLORIDE 0.9% 1,000 ML IV STA (18:16)
--- NOTE | 2022-06-20 18:16 | ED ---
General Adult HPI - General Chief complaint: Allergic Reaction Stated complaint: Irregular labs-sent by PCP Time Seen by Provider: 06/20/22 18:05 Source: patient, RN notes reviewed, old records reviewed Mode of arrival: ambulatory Limitations: no limitations - History of Present Illness Initial comments: Patient is a 72-year-old female with past medical history remarkable for recurrent UTIs, hypertension and presents emergency department over concern for possible reaction to her antibiotic. Patient's placed on Bactrim. States she had high blood pressure today as well as a headache. Was concerned it was reaction to her antibiotic. Presents for further evaluation at this time. States her urinary symptoms including urgency as well as dysuria have resolved. Today's day 7 of the antibiotic. No other acute point at this time including denying nausea, vomiting, abdominal pain. Denies any vaginal bleeding or discharge. Denies current headache. His no acute complaints. Presents requesting IV fluids as well as reevaluation of her urine.Denies rash, shortness of breath, dyspnea, wheezing, difficulty eating or swallowing. - Related Data Home Medications Medication Instructions Recorded Confirmed Omeprazole 40 mg PO AC-BRKFST 04/02/21 11/13/21 Estradiol Cream [Estrace Cream 1 gm VAGINAL TH@2100 11/13/21 11/13/21 0.01%] Rosuvastatin Calcium [Crestor] 40 mg PO HS 11/13/21 11/13/21 Previous Rx's Medication Instructions Recorded Cephalexin [Keflex] 500 mg PO Q12HR 3 Days #6 cap 11/16/21 Phenazopyridine [Pyridium] 100 mg PO TID PRN #9 tab 11/16/21 Allergies Allergy/AdvReac Type Severity Reaction Status Date / Time erythromycin base Allergy Rash/Hives Verified 01/23/22 14:01 nitrofurantoin Allergy Rash/Hives Verified 01/23/22 14:01 [From Macrobid] nitrofurantoin Allergy Rash/Hives Verified 01/23/22 14:01 macrocrystalline [From Macrobid] Sulfa (Sulfonamide Allergy Rash/Hives Verified 01/23/22 14:01 Antibiotics) Review of Systems ROS Statement: Those systems with pertinent positive or pertinent negative responses have been documented in the HPI. Review of Systems: CONST: Denies fever EYES: Denies blurry vision ENT: Denies nasal congestion C/V: Denies Chest pain RESP: Denies shortness of breath GI: Denies abdominal pain : Denies dysuria SKIN: Denies rash. MSK: Denies joint pain. NEURO: Denies headache ROS Other: All systems not noted in ROS Statement are negative. Past Medical History Past Medical History: GERD/Reflux, Hyperlipidemia Additional Past Medical History / Comment(s): back pain, IBS chronic uti History of Any Multi-Drug Resistant Organisms: None Reported Past Surgical History: Appendectomy, Bladder Surgery, Hysterectomy, Tonsillectomy Additional Past Surgical History / Comment(s): rectocele Past Anesthesia/Blood Transfusion Reactions: No Reported Reaction Past Psychological History: Anxiety Smoking Status: Former smoker Past Alcohol Use History: Rare Past Drug Use History: None Reported - Past Family History Mother Family Medical History: Cancer General Exam - General Exam Comments Initial Comments: General: Appears in no acute distress. HEAD: Normal with no signs of head trauma. EYES: PERRLA, EOMI, conjunctiva normal, no discharge. ENT: Hearing grossly intact, normal oropharynx. No stridor. RESPIRATORY: Clear breath sounds bilaterally. No wheezes, rales, or rhonchi. No respiratory distress. C/V: Regular rate and rhythm. S1 and S2 auscultated, no edema, peripheral pulses 2+ and intact throughout ABD: Abd is soft, nontender, nondistended EXT: Normal range of motion, no obvious deformity SKIN: No rashes or lesions observed on exposed skin. NEURO: Alert and oriented 4. Limitations: no limitations Course Vital Signs 06/20/22 06/20/22 06/20/22 15:35 16:43 19:38 Temperature 97.7 F 97.8 F Pulse Rate 82 71 Respiratory 16 20 16 Rate Blood Pressure 124/86 126/76 O2 Sat by Pulse 99 99 Oximetry Medical Decision Making - Medical Decision Making Was pt. sent in by a medical professional or institution (, PA, [facility], urgent care, hospital, or senior care...) When possible be specific @ -No Did you speak to anyone other than the patient for history (EMS, parent, family, police, friend...)? What history was obtained from this source @ -No Did you review nursing and triage notes (agree or disagree)? Why? @ -I reviewed and agree with nursing and triage notes Were old charts reviewed (outside hosp., previous admission, EMS record, old EKG, old radiological studies, urgent care reports/EKG's, senior care records)? Report findings @ -No old charts were reviewed Differential Diagnosis (chest pain, altered mental status, abdominal pain women, abdominal pain men, vaginal bleeding, weakness, fever, dyspnea, syncope, headache, dizziness, GI bleed, back pain, seizure, CVA, palpatations, mental health)? @ -UTI, medication reaction. This is not all-inclusive. EKG interpreted by me (3pts min.). @ -None done X-rays interpreted by me (1pt min.). @ -None done CT interpreted by me (1pt min.). @ -None done U/S interpreted by me (1pt. min.). @ -None done What testing was considered but not performed or refused? (CT, X-rays, U/S, labs)? Why? @ -None What meds were considered but not given or refused? Why? @ -None Did you discuss the management of the patient with other professionals (professionals i.e. , PA, [employer], lab, RT, psych nurse, social insurance specialist, clerical stock inspector, teacher, digital marketing officer, showcase maker)? Give summary @ -No Was smoking cessation discussed for >3mins.? @ -No Was critical care preformed (if so, how long)? @ -No Were there social determinants of health that impacted care today? How? (Homelessness, low income, unemployed, alcoholism, drug addiction, transportation, low edu. Level, literacy, decrease access to med. care, penitentiary, rehab)? @ -No Was there de-escalation of care discussed even if they declined (Discuss DNR or withdrawal of care, Hospice)? DNR status @ -No What co-morbidities impacted this encounter? (DM, HTN, Smoking, COPD, CAD, Cancer, CVA, ARF, Chemo, Hep., AIDS, mental health diagnosis, sleep apnea, morbid obesity)? @ -None Was patient admitted / discharged? Hospital course, mention meds given and route, prescriptions, significant lab abnormalities, going to OR and other pertinent info. @ -Based on the patient's presentation and physical exam, she presents co ncerned for possible reaction to Bactrim. Does have a history of reaction to Bactrim. Denies any rash, shortness breath, wheezing, cough. Has been taking it for 7 days. Had some elevated blood pressure earlier today as well as a headache which has since resolved. He is requesting IV fluids as well as a urinalysis. I believe this is reasonable at this time. She is no signs of ALLERGIC reaction at this time I'm doing not believe that she requires further laboratory studies or medications. Vital signs within acceptable limits. Urinalysis is unremarkable. On reevaluation, patient still feeling well. Vital signs unchanged. She'll be discharged home at this time with strict return precautions per to is in agreement this plan. I instructed the patient to follow up with their PCP in the next 1-3 days. I explained that the patient should return to the emergency department if they experience any worsening symptoms. Strict return precautions were discussed with the patient. The patient expressed understanding of these instructions. I answered all questions that the patient had. The patient was discharged home in good condition with their prescriptions and follow up information. Undiagnosed new problem with uncertain prognosis? @ -No Drug Therapy requiring intensive monitoring for toxicity (Heparin, Nitro, Insulin, Cardizem)? @ -No Were any procedures done? @ -No Diagnosis/symptom? @ -Medication reaction Acute, or Chronic, or Acute on Chronic? @ -Acute Uncomplicated (without systemic symptoms) or Complicated (systemic symptoms)? @ -Uncomplicated Side effects of treatment? @ -No Exacerbation, Progression, or Severe Exacerbation? @ -No Poses a threat to life or bodily function? How? (Chest pain, [place], [place], pneumonia, PE, COPD, DKA, ARF, appy, cholecystitis, CVA, Diverticulitis, Homicidal, Suicidal, threat to staff... and all critical care pts) @ -No - Lab Data Lab Results 06/20/22 Range/Units 18:23 Urine Color Light Yellow Urine Appearance Clear (Clear) Urine pH 5.0 (5.0-8.0) Ur Specific [place] 1.008 (1.001-1.035) Urine Protein Negative (Negative) Urine Glucose (UA) Negative (Negative) Urine Ketones Negative (Negative) Urine Blood Trace H (Negative) Urine Nitrite Negative (Negative) Urine Bilirubin Negative (Negative) Urine Urobilinogen <2.0 (<2.0) mg/dL Ur Leukocyte Esterase Trace H (Negative) Urine RBC 1 (0-5) /hpf Urine WBC 2 (0-5) /hpf Ur Squamous Epith Cells <1 (0-4) /hpf Urine Mucus Rare H (None) /hpf Disposition Clinical Impression: Medication reaction Disposition: HOME SELF-CARE Condition: Good Instructions (If sedation given, give patient instructions): Medication Safety for Older Adults (ED) Is patient prescribed a controlled substance at d/c from ED?: No Referrals: Benjamin Cotter MD [Primary Care Provider] - 1-2 days Time of Disposition: 19:50
[2022-06-20 19:03] LABS: Appearance,Urine Clear (Clear); Bilirubin,Urine Negative (Negative); Blood,Urine Trace (Negative); Color,Urine Light Yellow; Glucose,Urine (UA) Negative (Negative); Ketones,Urine Negative (Negative); Leukocyte Esterase,Urine Trace (Negative); Mucus,Urine Rare /hpf; Nitrite,Urine Negative (Negative); Protein,Urine Negative (Negative); RBC,Urine 1 /hpf (0-5); Specific Gravity,Urine 1.008 (1.001-1.035); Squamous Epithelial Cell,Urine <1 /hpf (0-4); Urobilinogen,Urine <2.0 mg/dL (<2.0); WBC,Urine 2 /hpf (0-5)
[2022-06-20 19:39] VITALS: BP 126/76; PULSE 71; RESP 16; TEMP 97.8
== END 2022-06-20 20:10 | disposition home or self-care (01) ==
LOC: EC 15:27
DX: R51.9 Headache, unspecified (principal); T36.95XA Adverse effect of unspecified systemic antibiotic, initial encounter; I10 Essential (primary) hypertension; E78.5 Hyperlipidemia, unspecified; K21.9 Gastro-esophageal reflux disease without esophagitis; Z88.1 Allergy status to other antibiotic agents; Z88.2 Allergy status to sulfonamides; Z88.8 Allergy status to other drugs, medicaments and biological substances; Z87.891 Personal history of nicotine dependence
CPT/HCPCS: 81001; 99283

== ENCOUNTER 2022-11-02 14:12 | Emergency (ER) | payer MEDICARE, BC ==
[2022-11-02 14:19] VITALS: BP 147/97; PULSE 78; RESP 20; TEMP 97.7
[2022-11-02] MEDS ORDERED: SODIUM CHLORIDE 0.9% 1,000 ML IV STA (14:22)
[2022-11-02] MEDS ORDERED: PHENAZOPYRIDINE 200 MG TAB PO STA (14:57)
[2022-11-02] MEDS ORDERED: ACETAMINOPHEN TAB 500 MG TAB PO STA (14:57)
[2022-11-02 15:16] LABS: Appearance,Urine Cloudy (Clear); Bacteria,Urine Many /hpf; Bilirubin,Urine Negative (Negative); Blood,Urine Moderate (Negative); Color,Urine Yellow; Glucose,Urine (UA) Negative (Negative); Ketones,Urine Negative (Negative); Leukocyte Esterase,Urine Large (Negative); Mucus,Urine Few /hpf; Nitrite,Urine Negative (Negative); PH, Urine 5.5 (5.0-8.0); Protein,Urine 1+ (Negative); RBC,Urine 26 /hpf (0-5); Specific Gravity,Urine 1.015 (1.001-1.035); Squamous Epithelial Cell,Urine <1 /hpf (0-4); Urobilinogen,Urine <2.0 mg/dL (<2.0); WBC,Urine >182 /hpf (0-5)
[2022-11-02] MEDS ORDERED: cefTRIAXone 1,000 MG VIAL (IM USE) IM STA (15:20)
--- NOTE | 2022-11-02 15:25 | ED ---
Female Urogenital HPI - General Chief complaint: Urogenital Stated complaint: difficulty urinating Time Seen by Provider: 11/02/22 14:21 Source: patient Mode of arrival: ambulatory Limitations: no limitations - History of Present Illness Initial comments: Patient is 72-year-old female who presents to the emergency department for burning with urination. Patient has history of frequent UTIs states this feels very similar. Patient has urinary frequency and urgency only urinating small amounts. She denies blood in urine, back pain, nausea, vomiting, fever, chills. - Related Data Home Medications Medication Instructions Recorded Confirmed Omeprazole 40 mg PO AC-BRKFST 04/02/21 11/13/21 Estradiol Cream [Estrace Cream 1 gm VAGINAL TH@2100 11/13/21 11/13/21 0.01%] Rosuvastatin Calcium [Crestor] 40 mg PO HS 11/13/21 11/13/21 Previous Rx's Medication Instructions Recorded Cephalexin [Keflex] 500 mg PO Q12HR 3 Days #6 cap 11/16/21 Phenazopyridine [Pyridium] 100 mg PO TID PRN #9 tab 11/16/21 Amoxic-Pot Clav 875-125Mg 1 tab PO BID 5 Days #10 tab 11/02/22 [Augmentin 875-125] Phenazopyridine [Pyridium] 200 mg PO TID #6 tablet 11/02/22 Allergies Allergy/AdvReac Type Severity Reaction Status Date / Time erythromycin base Allergy Rash/Hives Verified 11/02/22 14:19 nitrofurantoin Allergy Rash/Hives Verified 11/02/22 14:19 [From Macrobid] nitrofurantoin Allergy Rash/Hives Verified 11/02/22 14:19 macrocrystalline [From Macrobid] Sulfa (Sulfonamide Allergy Rash/Hives Verified 11/02/22 14:19 Antibiotics) Review of Systems ROS Statement: Those systems with pertinent positive or pertinent negative responses have been documented in the HPI. ROS Other: All systems not noted in ROS Statement are negative. Past Medical History Past Medical History: GERD/Reflux, Hyperlipidemia Additional Past Medical History / Comment(s): back pain, IBS chronic uti History of Any Multi-Drug Resistant Organisms: None Reported Past Surgical History: Appendectomy, Bladder Surgery, Hysterectomy, Tonsillectomy Additional Past Surgical History / Comment(s): rectocele Past Anesthesia/Blood Transfusion Reactions: No Reported Reaction Past Psychological History: Anxiety Smoking Status: Former smoker Past Alcohol Use History: Rare Past Drug Use History: None Reported - Past Family History Mother Family Medical History: Cancer General Exam Limitations: no limitations General appearance: alert, in no apparent distress Head exam: Present: atraumatic, normocephalic, normal inspection Respiratory exam: Present: normal lung sounds bilaterally. Absent: respiratory distress, wheezes, rales, rhonchi, stridor Cardiovascular Exam: Present: regular rate, normal rhythm, normal heart sounds. Absent: systolic murmur, diastolic murmur, rubs, gallop, clicks GI/Abdominal exam: Present: soft, normal bowel sounds. Absent: distended, tenderness, guarding, rebound, rigid Back exam: Absent: CVA tenderness (R), CVA tenderness (L), paraspinal tenderness, vertebral tenderness Neurological exam: Present: alert, oriented X3, CN II-XII intact Psychiatric exam: Present: normal affect, normal mood Skin exam: Present: warm, dry, intact, normal color. Absent: rash Course Vital Signs 11/02/22 14:17 Temperature 97.7 F Pulse Rate 78 Respiratory 20 Rate Blood Pressure 147/97 O2 Sat by Pulse 100 Oximetry Medical Decision Making - Medical Decision Making Was pt. sent in by a medical professional or institution ([facility] Novak, [facility], urgent care, hospital, or jail...) When possible be specific @ -No Did you speak to anyone other than the patient for history (EMS, parent, family, police, friend...)? What history was obtained from this source @ -No Did you review nursing and triage notes (agree or disagree)? Why? @ -I reviewed and agree with nursing and triage notes Were old charts reviewed (outside hosp., previous admission, EMS record, old EKG, old radiological studies, urgent care reports/EKG's, jail records)? Report findings @ -No old charts were reviewed Differential Diagnosis (chest pain, altered mental status, abdominal pain women, abdominal pain men, vaginal bleeding, weakness, fever, dyspnea, syncope, headache, dizziness, GI bleed, back pain, seizure, CVA, palpatations, mental health)? @ -Urinary tract infection, kidney infection, kidney stone. This list is not meant to be all inclusive EKG interpreted by me (3pts min.). @ -As above X-rays interpreted by me (1pt min.). @ -None done CT interpreted by me (1pt min.). @ -None done U/S interpreted by me (1pt. min.). @ -None done What testing was considered but not performed or refused? (CT, X-rays, U/S, labs)? Why? @ -Considered laboratory studies however patient has symptoms consistent with urinary tract infection which she gets often. She has no systemic symptoms or signs. What meds were considered but not given or refused? Why? @ -None Did you discuss the management of the patient with other professionals (professionals i.e. , PA, [facility], lab, RT, psych nurse, director social, president practicing urologist, teacher, safety security officer, correctional casework specialist)? Give summary @ -No Was smoking cessation discussed for >3mins.? @ -No Was critical care preformed (if so, how long)? @ -No Were there social determinants of health that impacted care today? How? (Homelessness, low income, unemployed, alcoholism, drug addiction, transportation, low edu. Level, literacy, decrease access to med. care, assisted, rehab)? @ -No Was there de-escalation of care discussed even if they declined (Discuss DNR or withdrawal of care, Hospice)? DNR status @ -No What co-morbidities impacted this encounter? (DM, HTN, Smoking, COPD, CAD, Cancer, CVA, ARF, Chemo, Hep., AIDS, mental health diagnosis, sleep apnea, morbid obesity)? @ -None Was patient admitted / discharged? Hospital course, mention meds given and route, prescriptions, significant lab abnormalities, going to OR and other pertinent info. @ -Patient presenting with urinary tract infection symptoms. No systemic symptoms or signs. Urinalysis indicative of infection. Patient given dose of IV Rocephin in the emergency department she will be discharged with antibiotics. Undiagnosed new problem with uncertain prognosis? @ -No Drug Therapy requiring intensive monitoring for toxicity (Heparin, Nitro, Insulin, Cardizem)? @ -No Were any procedures done? @ -No Diagnosis/symptom? @ -UTI Acute, or Chronic, or Acute on Chronic? @ -acute Uncomplicated (without systemic symptoms) or Complicated (systemic symptoms)? @ -uncomplicated Side effects of treatment? @ -No Exacerbation, Progression, or Severe Exacerbation? @ -No Poses a threat to life or bodily function? How? (Chest pain, [place], [place], pneumonia, PE, COPD, DKA, ARF, appy, cholecystitis, CVA, Diverticulitis, Homicidal, Suicidal, threat to staff... and all critical care pts) @ -No Dr. Tong is my attending - Lab Data Lab Results 11/02/22 Range/Units 14:40 Urine Color Yellow Urine Appearance Cloudy H (Clear) Urine pH 5.5 (5.0-8.0) Ur Specific [place] 1.015 (1.001-1.035) Urine Protein 1+ H (Negative) Urine Glucose (UA) Negative (Negative) Urine Ketones Negative (Negative) Urine Blood Moderate H (Negative) Urine Nitrite Negative (Negative) Urine Bilirubin Negative (Negative) Urine Urobilinogen <2.0 (<2.0) mg/dL Ur Leukocyte Esterase Large H (Negative) Urine RBC 26 H (0-5) /hpf Urine WBC >182 H (0-5) /hpf Ur Squamous Epith Cells <1 (0-4) /hpf Urine Bacteria Many H (None) /hpf Urine Mucus Few H (None) /hpf Disposition Clinical Impression: Urinary tract infection Disposition: HOME SELF-CARE Condition: Good Instructions (If sedation given, give patient instructions): Urinary Tract In fection in Women (ED) Additional Instructions: Increased water intake. Take medication as directed. Please follow-up with your primary care provider in 1-2 days. Return to the emergency department if you experience new, concerning, or worsening symptoms. Prescriptions: Amoxic-Pot Clav 875-125Mg [Augmentin 875-125] 1 tab PO BID 5 Days #10 tab Phenazopyridine [Pyridium] 200 mg PO TID #6 tablet Is patient prescribed a controlled substance at d/c from ED?: No Referrals: Benjamin Cotter MD [Primary Care Provider] - 1-2 days
== END 2022-11-02 15:39 | disposition home or self-care (01) ==
LOC: EC 14:12
DX: N39.0 Urinary tract infection, site not specified (principal); K21.9 Gastro-esophageal reflux disease without esophagitis; E78.5 Hyperlipidemia, unspecified; F41.9 Anxiety disorder, unspecified; Z87.891 Personal history of nicotine dependence; Z79.899 Other long term (current) drug therapy; Z88.6 Allergy status to analgesic agent; Z88.2 Allergy status to sulfonamides; Z88.8 Allergy status to other drugs, medicaments and biological substances; Z88.1 Allergy status to other antibiotic agents
CPT/HCPCS: 51798; 81001; 87086; 87077; 87186; 99283; 96372; J0696

== ENCOUNTER 2023-08-29 14:30 | Emergency (ER) | payer MEDICARE, BC ==
[2023-08-29 15:29] VITALS: RESP 18
--- NOTE | 2023-08-29 15:50 | ED ---
Lower Extremity Injury HPI - General Chief Complaint: Extremity Injury, Lower Stated Complaint: Right Leg Pain Time Seen by Provider: 08/29/23 14:50 Source: patient, RN notes reviewed Mode of arrival: ambulatory Limitations: no limitations - History of Present Illness Initial Comments: 73-year-old female presents emergency department chief complaint of right knee pain over the last week. Denies any obvious trauma, twisting, fall to the knee. He has noticed an increase in swelling has been difficult to flex and extend her knee over this time. Has a history of left total knee replacement in March 2023. - Related Data Home Medications Medication Instructions Recorded Confirmed Omeprazole 40 mg PO AC-BRKFST 04/02/21 11/13/21 Estradiol Cream [Estrace Cream 1 gm VAGINAL TH@2100 11/13/21 11/13/21 0.01%] Rosuvastatin Calcium [Crestor] 40 mg PO HS 11/13/21 11/13/21 Previous Rx's Medication Instructions Recorded Cephalexin [Keflex] 500 mg PO Q12HR 3 Days #6 cap 11/16/21 Phenazopyridine [Pyridium] 100 mg PO TID PRN #9 tab 11/16/21 Amoxic-Pot Clav 875-125Mg 1 tab PO BID 5 Days #10 tab 11/02/22 [Augmentin 875-125] Phenazopyridine [Pyridium] 200 mg PO TID #6 tablet 11/02/22 Allergies Allergy/AdvReac Type Severity Reaction Status Date / Time erythromycin base Allergy Rash/Hives Verified 08/29/23 14:36 nitrofurantoin Allergy Rash/Hives Verified 08/29/23 14:36 [From Macrobid] nitrofurantoin Allergy Rash/Hives Verified 08/29/23 14:36 macrocrystalline [From Macrobid] Sulfa (Sulfonamide Allergy Rash/Hives Verified 08/29/23 14:36 Antibiotics) Review of Systems ROS Statement: Those systems with pertinent positive or pertinent negative responses have been documented in the HPI. ROS Other: All systems not noted in ROS Statement are negative. Past Medical History Past Medical History: GERD/Reflux, Hyperlipidemia Additional Past Medical History / Comment(s): back pain, IBS chronic uti History of Any Multi-Drug Resistant Organisms: None Reported Past Surgical History: Appendectomy, Bladder Surgery, Hysterectomy, Orthopedic Surgery, Tonsillectomy Additional Past Surgical History / Comment(s): rectocele, left total knee replacement 2022 Past Anesthesia/Blood Transfusion Reactions: No Reported Reaction Past Psychological History: Anxiety Smoking Status: Former smoker Past Alcohol Use History: Rare Past Drug Use History: None Reported - Past Family History Mother Family Medical History: Cancer General Exam Limitations: no limitations General appearance: alert Head exam: Present: atraumatic, normocephalic, normal inspection Eye exam: Present: normal appearance, PERRL, EOMI. Absent: scleral icterus, conjunctival injection, periorbital swelling ENT exam: Present: normal exam, mucous membranes moist Neck exam: Present: normal inspection. Absent: tenderness, meningismus, lymphadenopathy Respiratory exam: Present: normal lung sounds bilaterally. Absent: respiratory distress, wheezes, rales, rhonchi, stridor Cardiovascular Exam: Present: regular rate, normal rhythm, normal heart sounds. Absent: systolic murmur, diastolic murmur, rubs, gallop, clicks GI/Abdominal exam: Present: soft, normal bowel sounds. Absent: distended, tenderness, guarding, rebound, rigid Extremities exam: Present: normal inspection, full ROM, normal capillary refill. Absent: tenderness, pedal edema, joint swelling, calf tenderness Right Hip exam: Present: normal inspection Upper Leg exam: Present: normal inspection Knee exam: Present: full ROM (pain with flexion and extension), tenderness, swelling (medial knee swelling). Absent: erythema Lower Leg exam: Present: normal inspection, full ROM Ankle exam: Present: normal inspection Foot/Toe exam: Present: normal inspection Back exam: Present: normal inspection Neurological exam: Present: alert, oriented X3, CN II-XII intact Psychiatric exam: Present: normal affect, normal mood Skin exam: Present: warm, dry, intact, normal color. Absent: rash Course Vital Signs 08/29/23 08/29/23 14:32 16:55 Temperature 98.1 F 98.3 F Pulse Rate 92 86 Respiratory 18 18 Rate Blood Pressure 138/67 126/87 O2 Sat by Pulse 100 99 Oximetry Procedures - Orthopedic Splinting/Casting Injury #1 Side: right Lower Extremity Injury Location: knee Lower Extremity Immobilizer: Vinod wrap Medical Decision Making - Medical Decision Making Was pt. sent in by a medical professional or institution (, PA, AWS CONSULTANT, urgent care, hospital, or fci...) When possible be specific @ -No Did you speak to anyone other than the patient for history (EMS, parent, family, police, friend...)? What history was obtained from this source @ -No Did you review nursing and triage notes (agree or disagree)? Why? @ -I reviewed and agree with nursing and triage notes Were old charts reviewed (outside hosp., previous admission, EMS record, old EKG, old radiological studies, urgent care reports/EKG's, fci records)? Report findings @ -No old charts were reviewed Differential Diagnosis (chest pain, altered mental status, abdominal pain women, abdominal pain men, vaginal bleeding, weakness, fever, dyspnea, syncope, headache, dizziness, GI bleed, back pain, seizure, CVA, palpatations, mental health, musculoskeletal)? @ -Differential Musculoskeletal Muscular strain, contusion, ligament sprain, fracture, arthritis, septic arthritis, bursitis, cellulitis, muscle spasm, nerve compression, DVT, arterial occlusion, herpes zoster, electrolyte abnormality, tumor.... This is not meant to be in all inclusive list EKG interpreted by me (3pts min.). @ -None X-rays interpreted by me (1pt min.). @ -right knee x-ray reveals moderate medial compartmental osteoarthritis with suspicion of an underlying torn and extruded medial meniscus. Small knee joint effusion CT interpreted by me (1pt min.). @ -None done U/S interpreted by me (1pt. min.). @ -None done What testing was considered but not performed or refused? (CT, X-rays, U/S, labs)? Why? @ -None What meds were considered but not given or refused? Why? @ -None Did you discuss the management of the patient with other professionals (professionals i.e. , PA, AWS CONSULTANT, lab, RT, psych nurse, licensed master social worker, partner integration planner, teacher, neighborhood conservation officer, case management director)? Give summary @ -No Was smoking cessation discussed for >3mins.? @ -No Was critical care preformed (if so, how long)? @ -No Were there social determinants of health that impacted care today? How? (Homelessness, low income, unemployed, alcoholism, drug addiction, transportat ion, low edu. Level, literacy, decrease access to med. care, fdc, rehab)? @ -No Was there de-escalation of care discussed even if they declined (Discuss DNR or withdrawal of care, Hospice)? DNR status @ -No What co-morbidities impacted this encounter? (DM, HTN, Smoking, COPD, CAD, Cancer, CVA, ARF, Chemo, Hep., AIDS, mental health diagnosis, sleep apnea, morbid obesity)? @ -None Was patient admitted / discharged? Hospital course, mention meds given and route, prescriptions, significant lab abnormalities, going to OR and other pertinent info. @ -Discharged. 73-year-old female chief complaint of right knee pain. right knee x-ray reveals moderate medial compartmental osteoarthritis with suspicion of an underlying torn and extruded medial meniscus. Small knee joint effusion. Iced and Vinod wrap and urged to follow-up with orthopedic for further evaluation and treatment. Patient is stable for discharge Undiagnosed new problem with uncertain prognosis? @ -No Drug Therapy requiring intensive monitoring for toxicity (Heparin, Nitro, Insulin, Cardizem)? @ -No Were any procedures done? @ -No Diagnosis/symptom? @ -Knee pain Acute, or Chronic, or Acute on Chronic? @ -Acute Uncomplicated (without systemic symptoms) or Complicated (systemic symptoms)? @ -Uncomplicated Side effects of treatment? @ -No Exacerbation, Progression, or Severe Exacerbation? @ -No Poses a threat to life or bodily function? How? (Chest pain, [place], OR, pneumonia, PE, COPD, DKA, ARF, appy, cholecystitis, CVA, Diverticulitis, Homicidal, Suicidal, threat to staff... and all critical care pts) @ -No Disposition Clinical Impression: Right knee pain Narrative: Please return to the Emergency Department if symptoms worsen or any other concerns. patient follows with retirement benefits specialist, urged to contact office on Friday or Friday for further evaluation and treatment. Dr. Evans Disposition: HOME SELF-CARE Condition: Good Instructions (If sedation given, give patient instructions): Knee Pain (ED) Is patient prescribed a controlled substance at d/c from ED?: No Referrals: Benjamin Cotter MD [Primary Care Provider] - 1-2 days Time of Disposition: 16:49
--- NOTE | 2023-08-29 16:20 | XR ---
EXAMINATION TYPE: XR knee complete RT DATE OF EXAM: 08/29/2023 COMPARISON: NONE HISTORY: 73-year-old female knee swelling and pain TECHNIQUE: 3 views FINDINGS: Moderate to severe narrowing of cartilage and joint space in the medial compartment with pr ominent marginal spurring. There is focal soft tissue swelling at the medial joint line. Trace knee j oint effusion. Extensor mechanism is intact. Mild anterior spurring patellofemoral compartment. No ac oscar fracture, subluxation, dislocation is seen. IMPRESSION: 1. Moderate to severe medial compartmental OA with suspicion of an underlying torn and extruded media l meniscus. 2. Small knee joint effusion which is likely reactive.
[2023-08-29 17:08] VITALS: BP 126/87; PULSE 86; TEMP 98.3
== END 2023-08-29 17:00 | disposition home or self-care (01) ==
LOC: EC 14:30
DX: M79.604 Pain in right leg (principal); K21.9 Gastro-esophageal reflux disease without esophagitis; E78.5 Hyperlipidemia, unspecified; Z86.59 Personal history of other mental and behavioral disorders; Z87.891 Personal history of nicotine dependence; Z79.899 Other long term (current) drug therapy; Z88.1 Allergy status to other antibiotic agents; Z88.2 Allergy status to sulfonamides; Z88.8 Allergy status to other drugs, medicaments and biological substances
CPT/HCPCS: 99283

== ENCOUNTER 2023-09-10 07:19 | Emergency (ER) | payer MEDICARE, BC ==
--- NOTE | 2023-09-10 07:51 | ED ---
General Adult HPI - General Chief complaint: Extremity Injury, Lower Stated complaint: right knee pain Time Seen by Provider: 09/10/23 07:35 Source: patient, RN notes reviewed, old records reviewed Mode of arrival: ambulatory Limitations: physical limitation - History of Present Illness Initial comments: Patient is a 73-year-old female with multiple complaints today. Primary complaints include right knee pain that has been ongoing and worked up and there is concern for possible internal injury to the right knee including meniscus tear. She has yet to follow-up with care management specialist for this. She has been using an Vinod bandage on it. Patient also states she took a dose of Cymbalta yesterday and felt flushed afterwards. Still feeling that way somewhat at this time. Denies any other acute complaints at this time. Denies chest pain, abdominal pain, nausea, vomiting, headaches. Has not taken any additional doses of Cymbalta and took 1 tablet yesterday. Is also primary complaining of the right knee pain for which she is only taking Motrin at home without much improvement. Presents for further evaluation at this time. - Related Data Home Medications Medication Instructions Recorded Confirmed Omeprazole 40 mg PO AC-BRKFST 04/02/21 11/13/21 Estradiol Cream [Estrace Cream 1 gm VAGINAL TH@2100 11/13/21 11/13/21 0.01%] Rosuvastatin Calcium [Crestor] 40 mg PO HS 11/13/21 11/13/21 Previous Rx's Medication Instructions Recorded Cephalexin [Keflex] 500 mg PO Q12HR 3 Days #6 cap 11/16/21 Phenazopyridine [Pyridium] 100 mg PO TID PRN #9 tab 11/16/21 Amoxic-Pot Clav 875-125Mg 1 tab PO BID 5 Days #10 tab 11/02/22 [Augmentin 875-125] Phenazopyridine [Pyridium] 200 mg PO TID #6 tablet 11/02/22 Allergies Allergy/AdvReac Type Severity Reaction Status Date / Time erythromycin base Allergy Rash/Hives Verified 09/10/23 07:25 nitrofurantoin Allergy Rash/Hives Verified 09/10/23 07:25 [From Macrobid] nitrofurantoin Allergy Rash/Hives Verified 09/10/23 07:25 macrocrystalline [From Macrobid] Sulfa (Sulfonamide Allergy Rash/Hives Verified 09/10/23 07:25 Antibiotics) Review of Systems ROS Statement: Those systems with pertinent positive or pertinent negative responses have been documented in the HPI. Review of Systems: CONST: Denies fever EYES: Denies blurry vision ENT: Denies nasal congestion C/V: Denies Chest pain RESP: Denies shortness of breath GI: Denies abdominal pain : Denies dysuria SKIN: Denies rash. MSK: Endorses left knee pain NEURO: Denies headache ROS Other: All systems not noted in ROS Statement are negative. Past Medical History Past Medical History: GERD/Reflux, Hyperlipidemia Additional Past Medical History / Comment(s): back pain, IBS chronic uti History of Any Multi-Drug Resistant Organisms: None Reported Past Surgical History: Appendectomy, Bladder Surgery, Hysterectomy, Tonsillectomy Additional Past Surgical History / Comment(s): rectocele Past Anesthesia/Blood Transfusion Reactions: No Reported Reaction Past Psychological History: Anxiety Smoking Status: Former smoker Past Alcohol Use History: Rare Past Drug Use History: None Reported - Past Family History Mother Family Medical History: Cancer General Exam - General Exam Comments Initial Comments: General: Appears anxious HEAD: Normal with no signs of head trauma. EYES: PERRLA, EOMI, conjunctiva normal, no discharge. ENT: Hearing grossly intact, normal oropharynx. RESPIRATORY: Clear breath sounds bilaterally. No wheezes, rales, or rhonchi. C/V: Regular rate and rhythm. S1 and S2 auscultated, no edema, peripheral pulses 2+ and intact throughout ABD: Abd is soft, nontender, nondistended EXT: Reduced range of motion of the right knee secondary to pain. Tenderness to palpation all over the knee. Neurovascularly intact throughout on the right lower extremity. No edema. SKIN: No rashes or lesions observed on exposed skin. NEURO: Alert and oriented x 4. Cranial nerves II-XII intact. No focal sensory or strength deficits. Limitations: physical limitation Course Vital Signs 09/10/23 07:23 Temperature 97.9 F Pulse Rate 81 Respiratory 18 Rate Blood Pressure 160/105 O2 Sat by Pulse 99 Oximetry Medical Decision Making - Medical Decision Making Was pt. sent in by a medical professional or institution (, PA, CHAIRMAN AND CEO, urgent care, hospital, or retirement...) When possible be specific @ -No Did you speak to anyone other than the patient for history (EMS, parent, family, police, friend...)? What history was obtained from this source @ -No Did you review nursing and triage notes (agree or disagree)? Why? @ -I reviewed and agree with nursing and triage notes Were old charts reviewed (outside hosp., previous admission, EMS record, old EKG, old radiological studies, urgent care reports/EKG's, retirement records)? Report findings @ -Old charts reviewed Differential Diagnosis (chest pain, altered mental status, abdominal pain women, abdominal pain men, vaginal bleeding, weakness, fever, dyspnea, syncope, headache, dizziness, GI bleed, back pain, seizure, CVA, palpatations, mental health, musculoskeletal)? @ -Differential Musculoskeletal Muscular strain, contusion, ligament sprain, fracture, arthritis, septic arthritis, bursitis, cellulitis, muscle spasm, nerve compression, DVT, arterial occlusion, herpes zoster, electrolyte abnormality, tumor.... This is not meant to be in all inclusive list EKG interpreted by me (3pts min.). @ -As above X-rays interpreted by me (1pt min.). @ -None done CT interpreted by me (1pt min.). @ -None done U/S interpreted by me (1pt. min.). @ -None done What testing was considered but not performed or refused? (CT, X-rays, U/S, labs)? Why? @ -Considered imaging however patient already had a recent x-ray of the knee showing concerns for possible internal derangement such as meniscus tear What meds were considered but not given or refused? Why? @ -None Did you discuss the management of the patient with other professionals (deann bedolla i.eFer Novak, PA, CHAIRMAN AND CEO, lab, RT, psych nurse, social science manager, magnesium mill operator, teacher, security officer, manager case)? Give summary @ -No Was smoking cessation discussed for >3mins.? @ -No Was critical care preformed (if so, how long)? @ -No Were there social determinants of health that impacted care today? How? (Homelessness, low income, unemployed, alcoholism, drug addiction, transportation, low edu. Level, literacy, decrease access to med. care, alf, rehab)? @ -No Was there de-escalation of care discussed even if they declined (Discuss DNR or withdrawal of care, Hospice)? DNR status @ -No What co-morbidities impacted this encounter? (DM, HTN, Smoking, COPD, CAD, Cancer, CVA, ARF, Chemo, Hep., AIDS, mental health diagnosis, sleep apnea, morbid obesity)? @ -None Was patient admitted / discharged? Hospital course, mention meds given and route, prescriptions, significant lab abnormalities, going to OR and other pertinent info. @ -Patient presents with multiple complaints. This includes right knee pain, as well as taking 1 dose of Cymbalta yesterday and feeling flushed afterwards. Patient's primary complaint at this time is right knee pain. Is asking for analgesia medications. Has no other acute complaints. I did discuss with the patient and she does need to follow-up with orthopedic surgery which she is aware of. Currently does not have an appointment. She likely needs an MRI of the right knee and further evaluation. I discussed she can continue elevating, wrapping, as well as icing the right knee. I will give her a dose of Tylenol 3 at this time for analgesia and we will obtain basic labs to her feelings after taking the Cymbalta yesterday. She was in agreement this plan. Vital signs are within acceptable limits. Screening EKG will also be obtained. I advised that she avoid taking Cymbalta moving forward until she follows up with the prescriber, Dr. Cotter. She has not taken any additional doses beyond the single dose yesterday.. She was in agreement this plan. No further imaging will be obtained at this time as patient requires an MRI which she cannot have out of the emergency department. Is already had a recent x-ray showing the results of possible internal injury of the right knee including possible meniscus. EKG showed no signs of acute ischemia. Patient's laboratory studies are within acceptable limits. On reevaluation, patient is feeling improved. We discussed her workup. She will be given a starter pack of Tylenol 3. She also be given contact info for orthopedics. Patient was in agreement this plan. She will follow-up with her PCP. I recommended she not take Cymbalta until that follow-up. She was in agreement this plan. I instructed the patient to follow up with their PCP in the next 1-3 days. I explained that the patient should return to the emergency department if they experience any worsening symptoms. Strict return precautions were discussed with the patient. The patient expressed understanding of these instructions. I answered all questions that the patient had. The patient was discharged home in good condition with their prescriptions and follow up information. Undiagnosed new problem with uncertain prognosis? @ -No Drug Therapy requiring intensive monitoring for toxicity (Heparin, Nitro, Insulin, Cardizem)? @ -No Were any procedures done? @ -No Diagnosis/symptom? @ -Right knee pain Acute, or Chronic, or Acute on Chronic? @ -Acute chronic Uncomplicated (without systemic symptoms) or Complicated (systemic symptoms)? @ -Uncomplicated Side effects of treatment? @ -None Exacerbation, Progression, or Severe Exacerbation] @ -No Poses a threat to life or bodily function? @ -No - Lab Data Result diagrams: 09/10/23 07:59 09/10/23 07:59 Lab Results 09/10/23 09/10/23 Range/Units 07:59 07:59 WBC 6.8 (3.8-10.6) k/uL RBC 4.15 (3.80-5.40) m/uL Hgb 12.3 (11.4-16.0) gm/dL Hct 38.6 (34.0-46.0) % MCV 93.0 (80.0-100.0) fL MCH 29.7 (25.0-35.0) pg MCHC 31.9 (31.0-37.0) g/dL RDW 13.2 (11.5-15.5) % Plt Count 337 (150-450) k/uL MPV 7.2 Neutrophils % 68 % Lymphocytes % 24 % Monocytes % 5 % Eosinophils % 2 % Basophils % 1 % Neutrophils # 4.6 (1.3-7.7) k/uL Lymphocytes # 1.6 (1.0-4.8) k/uL Monocytes # 0.3 (0-1.0) k/uL Eosinophils # 0.1 (0-0.7) k/uL Basophils # 0.0 (0-0.2) k/uL Sodium 142 (137-145) mmol/L Potassium 4.3 (3.5-5.1) mmol/L Chloride 108 H (98-107) mmol/L Carbon Dioxide 25 (22-30) mmol/L Anion Gap 9 mmol/L BUN 16 (7-17) mg/dL Creatinine 0.60 (0.52-1.04) mg/dL Est GFR (CKD-EPI)AfAm >90 (>60 ml/min/1.73 sqM) Est GFR (CKD-EPI)NonAf >90 (>60 ml/min/1.73 sqM) Glucose 104 H (74-99) mg/dL Calcium 9.7 (8.4-10.2) mg/dL - EKG Data -: EKG Interpreted by Me EKG Comments: 12-lead Electrocardiogram Interpretation Note EKG was reviewed and interpreted by myself. 12-lead ECG performed at 0755 is interpreted by me as revealing normal sinus rhythm at a rate of 68 beats per minute. [place] is normal. [place] interval is 176 ms, QRS duration is 90 ms, QTc is 422 ms.. There were no ST or T wave abnormalities to suggest myocardial ischemia or injury. R wave progression across the precordium was satisfactory. By my interpretation this EKG is non-diagnostic for acute ischemia. Disposition Clinical Impression: Right knee pain Disposition: ADMITTED IP TO THIS HOSP Condition: Stable Referrals: Benjamin Cotter MD [Primary Care Provider] - 1-2 days Jael Echeverria DO [Doctor of Osteopathic Medicine] - 1-2 days Time of Disposition: 08:54
[2023-09-10] MEDS: Acetaminophen-Codeine 300-30mg TAB PO STA (08:08)
[2023-09-10 08:10] LABS: Basophils % (A) 1 %; Eosinophils # (A) 0.1 k/uL (0-0.7); Eosinophils % (A) 2 %; HCT 38.6 % (34.0-46.0); HGB 12.3 gm/dL (11.4-16.0); Lymphocytes # (A) 1.6 k/uL (1.0-4.8); Lymphocytes % (A) 24 %; MCH 29.7 pg (25.0-35.0); MCHC 31.9 g/dL (31.0-37.0); Mean Platelet Volume 7.2; Monocytes # (A) 0.3 k/uL (0-1.0); Monocytes % (A) 5 %; Neutrophils # (A) 4.6 k/uL (1.3-7.7); Neutrophils % (A) 68 %; Platelet Count 337 k/uL (150-450); RBC 4.15 m/uL (3.80-5.40); RDW 13.2 % (11.5-15.5); WBC 6.8 k/uL (3.8-10.6)
[2023-09-10 08:25] VITALS: RESP 18; TEMP 97.9
[2023-09-10 08:33] LABS: African American GFR (CKD) >90 (>60 ml/min/1.73 sqM); Anion Gap 9 mmol/L; Blood Urea Nitrogen 16 mg/dL (7-17); Calcium 9.7 mg/dL (8.4-10.2); Carbon Dioxide 25 mmol/L (22-30); Chloride 108 mmol/L (98-107); Glucose 104 mg/dL (74-99); Non-African American GFR(CKD) >90 (>60 ml/min/1.73 sqM); Potassium 4.3 mmol/L (3.5-5.1); Sodium 142 mmol/L (137-145)
[2023-09-10] MEDS: ACET/COD 300 MG/30 MG STARTER PACK 6 TAB BTL PO STA (08:49)
[2023-09-10 09:42] VITALS: BP 144/92; PULSE 74
== END 2023-09-10 09:20 | disposition other institution (70) ==
LOC: EC 07:19
DX: M25.561 Pain in right knee (principal); Z87.891 Personal history of nicotine dependence; Z88.1 Allergy status to other antibiotic agents; Z88.2 Allergy status to sulfonamides; Z88.8 Allergy status to other drugs, medicaments and biological substances
CPT/HCPCS: 36415; 80048; 85025; 93005; 99285

== ENCOUNTER → 2023-10-17 | Outpatient (CLI) | payer MEDICARE, BC ==
--- NOTE | 2023-10-20 09:42 | MM ---
Reason for Exam: Screening (asymptomatic). Last mammogram was performed 1 year(s) and 6 month(s) ago. Patient History: Menarche at age 14. First Full-Term at age 19. Left ovary removed at age 54. Right ovary removed at age 54. Hysterectomy at age 54. Postmenopausal. Patient has history of breast feeding. Currently using Estrogen, beginning at age 54 for 1 year, 5 months. Progesterone for 1 year, 5 months, from age 54 until age 55. 04/12/2020, High risk Core Biopsy on the right side. Risk Values: Aracelis 5 year model risk: 1.5%. NCI Lifetime model risk: 4.1%. Prior Study Comparison: 03/24/2020 Right Diagnostic Mammogram, [facility]. 04/17/2021 Bilateral Screening Mammogram, [facility]. 04/18/2022 Bilateral MG 3D screening mammo w/cad, [facility]. Tissue Density: The breasts are heterogeneously dense, which may obscure small masses. Findings: Analyzed By CAD. Previous biopsy clip marker in the right breast. Benign-appearing calcifications with a vague 6 mm nodular density lower left breast approximately 5.3 cm from the nipple. Overall Assessment: Incomplete: need additional imaging evaluation, BI-RAD 0 Management: Diagnostic Mammogram of the left breast. . Patient should continue monthly self-breast exams. A clinical breast exam by your physician is recommended on an annual basis. This exam should not preclude additional follow-up of suspicious palpable abnormalities. Note on Aracelis scores and lifetime risk: 1. A Aracelis score greater than 3% is considered moderate risk. If this is the case, consider specialist referral to assess eligibility for a risk reducing agent. 2. If overall lifetime risk for the development of breast cancer is 20% or higher, the patient may qualify for future screening with alternating mammogram and breast MRI. Electronically signed and approved by: Benjamin Ovalles M.D. Radiologis
== END | disposition home or self-care (01) ==
LOC: RADMAMWWP 12:30
PROVIDERS: ATTEND Family Medicine
DX: Z12.31 Encounter for screening mammogram for malignant neoplasm of breast (principal); Z78.0 Asymptomatic menopausal state
CPT/HCPCS: 77063; 77067

== ENCOUNTER → 2023-10-21 | Outpatient (CLI) | payer MEDICARE, BC ==
--- NOTE | 2023-10-21 09:23 | MM ---
Reason for Exam: Additional evaluation requested from abnormal screening. Last screening mammogram was performed less than 1 month ago. Patient History: Menarche at age 14. First Full-Term at age 19. Left ovary removed at age 54. Right ovary removed at age 54. Hysterectomy at age 54. Postmenopausal. Patient has history of breast feeding. Estrogen, starting at age 54 for 1 year, 5 months. Progesterone for 1 year, 5 months, from age 54 until age 55. 04/12/2020, High risk Core Biopsy on the right side. Risk Values: Aracelis 5 year model risk: 1.5%. NCI Lifetime model risk: 4.1%. Prior Study Comparison: 04/17/2021 Bilateral Screening Mammogram, [facility]. 04/18/2022 Bilateral MG 3D screening mammo w/cad, [facility]. 10/17/2023 Bilateral MG 3D screening mammo w/cad, [facility]. Tissue Density: Left: The breasts are heterogeneously dense, which may obscure small masses. Findings: Analyzed By CAD. Persistent low density circumscribed 5 mm nodule central inferior left breast with a couple associated punctate calcifications. A small cyst is possible. Ultrasound to further assess. Overall Assessment: Incomplete: need additional imaging evaluation, BI-RAD 0 Management: Diagnostic Breast Ultrasound of the left breast. Electronically signed and approved by: Tianna Flannery M.D. Radiologist
--- NOTE | 2023-10-21 09:54 | USB ---
Reason for Exam: Additional evaluation requested from abnormal screening. Patient History: Menarche at age 14. First Full-Term at age 19. Left ovary removed at age 54. Right ovary removed at age 54. Hysterectomy at age 54. Postmenopausal. Patient has history of breast feeding. Estrogen, starting at age 54 for 1 year, 5 months. Progesterone for 1 year, 5 months, from age 54 until age 55. 04/12/2020, High risk Core Biopsy on the right side. Risk Values: Aracelis 5 year model risk: 1.5%. NCI Lifetime model risk: 4.1%. Technique: Method: Targeted. Prior Study Comparison: 04/17/2021 Bilateral Screening Mammogram, [facility]. 04/18/2022 Bilateral MG 3D screening mammo w/cad, [facility]. 10/17/2023 Bilateral MG 3D screening mammo w/cad, [facility]. Findings: The lower section of the breast of the left breast, the axilla of the left breast and the retroareolar of the left breast were scanned. Targeted ultrasound inferior aspect of the left breast 4:00 to 8:00 including scanning of the subareolar region and axilla. At the 5:00 position, 4 cm from the nipple, there is a small 5 mm cyst likely containing small amount of internal debris. Suspect mammographic correlate. Six-month follow-up mammogram recommended. Overall Assessment: Probably benign, BI-RAD 3 Management: Diagnostic Mammogram of the left breast in 6 months. A clinical breast exam by your physician is recommended on an annual basis and results should be correlated with mammographic findings. This exam should not preclude additional follow-up of suspicious palpable abnormalities. Results were given to the patient verbally at the time of exam. Electronically signed and approved by: Tianna Flannery M.D. Radiologist
== END | disposition home or self-care (01) ==
LOC: RADMAMWWP 08:54
PROVIDERS: ATTEND Family Medicine
DX: N60.02 Solitary cyst of left breast (principal); R92.332 Mammographic heterogeneous density, left breast; R92.1 Mammographic calcification found on diagnostic imaging of breast; Z78.0 Asymptomatic menopausal state
CPT/HCPCS: 77065; 76642; G0279; 77061

== ENCOUNTER → 2024-04-23 | Outpatient (CLI) | payer MEDICARE, BC ==
--- NOTE | 2024-04-23 08:24 | MM ---
Reason for Exam: Follow-up at short interval from prior study. Last screening mammogram was performed 6 month(s) ago. Patient History: Menarche at age 14. First Full-Term at age 19. Left ovary removed at age 54. Right ovary removed at age 54. Hysterectomy at age 54. Postmenopausal. Patient has history of breast feeding. Estrogen, starting at age 54 for 1 year, 5 months. Progesterone for 1 year, 5 months, from age 54 until age 55. 04/12/2020, High risk Core Biopsy on the right side. Risk Values: Aracelis 5 year model risk: 1.5%. NCI Lifetime model risk: 3.9%. Prior Study Comparison: 04/18/2022 Bilateral MG 3D screening mammo w/cad, [facility]. 10/17/2023 Bilateral MG 3D screening mammo w/cad, [facility]. 10/21/2023 Left MG 3D work up w/cad , [facility]. Tissue Density: Left: The breasts are heterogeneously dense, which may obscure small masses. Findings: Analyzed By CAD. The pattern is stable. Couple punctate calcifications are adjacent to a rounded density with partially obscured margins appears to correlate with the prior cyst. 0.4 cm and located 5 cm approximately 5:00 middle breast position right No suspicious groups of microcalcifications, spiculated or lobular masses, architectural distortion or other secondary signs of malignancy are mammographically apparent. Overall Assessment: Incomplete: need additional imaging evaluation, BI-RAD 0 Management: Diagnostic Breast Ultrasound of the left breast. A negative mammogram report should not preclude additional follow up of suspicious palpable abnormalities. Patient should continue monthly self breast exam. A clinical breast exam by your physician is recommended on an annual basis and results should be correlated with mammographic findings. Note on Aracelis scores and lifetime risk: 1. A Aracelis score greater than 3% is considered moderate risk. If this is the case, consider specialist referral to assess eligibility for a risk reducing agent. 2. If overall lifetime risk for the development of breast cancer is 20% or higher, the patient may qualify for future screening with alternating mammogram and breast MRI. [facility], , 04/23/2024 8:21 AM. Electronically signed and approved by: Cleveland Garces D.O. Radiologis
--- NOTE | 2024-04-23 08:46 | USB ---
Reason for Exam: Follow-up at short interval from prior study. Patient History: Menarche at age 14. First Full-Term at age 19. Left ovary removed at age 54. Right ovary removed at age 54. Hysterectomy at age 54. Postmenopausal. Patient has history of breast feeding. Estrogen, starting at age 54 for 1 year, 5 months. Progesterone for 1 year, 5 months, from age 54 until age 55. 04/12/2020, High risk Core Biopsy on the right side. Risk Values: Aracelis 5 year model risk: 1.5%. NCI Lifetime model risk: 3.9%. Technique: Method: Targeted. Prior Study Comparison: 04/18/2022 Bilateral MG 3D screening mammo w/cad, [facility]. 10/17/2023 Bilateral MG 3D screening mammo w/cad, [facility]. 10/21/2023 Left MG 3D work up w/cad , [facility]. Findings: The lower section of the breast of the left breast, the axilla of the left breast and the retroareolar of the left breast were scanned. There is a 0.6 x 0.5 x 0.2 cm cyst transmission and posterior wall enhancement at the 5:00 position 4 cm nipple correlating with the mammographic finding in prior study.. Overall Assessment: Benign, BI-RAD 2 Management: Screening Mammogram of both breasts in 6 months. A clinical breast exam by your physician is recommended on an annual basis and results should be correlated with mammographic findings. This exam should not preclude additional follow-up of suspicious palpable abnormalities. Results were given to the patient verbally at the time of exam. [facility], , 04/23/2024 8:38 AM. Electronically signed and approved by: Cleveland Garces D.O. Radiologis
== END | disposition home or self-care (01) ==
LOC: RADMAMWWP 07:52
PROVIDERS: ATTEND Family Medicine
DX: R92.8 Other abnormal and inconclusive findings on diagnostic imaging of breast (principal); R92.333 Mammographic heterogeneous density, bilateral breasts; Z78.0 Asymptomatic menopausal state
CPT/HCPCS: 77065; 76642; G0279; 77061

== ENCOUNTER 2024-07-24 21:08 | Emergency (ER) | payer MEDICARE, BC ==
[2024-07-24 21:18] VITALS: RESP 16
--- NOTE | 2024-07-24 22:01 | ED ---
Abdominal Pain HPI - General Chief Complaint: Abdominal Pain Stated Complaint: vomiting, rectal bleeding Time Seen by Provider: 07/24/24 21:22 Source: patient Mode of arrival: wheelchair Limitations: no limitations - History of Present Illness Initial Comments: This patient is 74-year-old woman who presents to have evaluation of diffuse abdominal pain. She states that it had come on early in the day today. She also had multiple episodes of vomiting and noticed streaks of blood with the last few episodes. The patient believes this may be related to urinary tract infection that she was diagnosed with nearly 2 weeks ago. The patient states she finished course of antibiotics, that reportedly did not eliminate the infection and she was started on Levaquin days ago. She states that today she has had multiple rounds of vomiting. She is not tolerating much in the way of oral intake. She has not noted fever or chills. MD Complaint: abdominal pain Onset/Timin -: days(s) Location: diffuse Radiation: none Migration to: no migration Severity: moderate Quality: cramping, aching Consistency: constant Improves With: nothing Worsens With: nothing Associated Symptoms: nausea, vomiting - Related Data Home Medications Medication Instructions Recorded Confirmed Omeprazole 40 mg PO AC-BRKFST 04/02/21 11/13/21 Estradiol Cream [Estrace Cream 1 gm VAGINAL TH@2100 11/13/21 11/13/21 0.01%] Rosuvastatin Calcium [Crestor] 40 mg PO HS 11/13/21 11/13/21 Previous Rx's Medication Instructions Recorded Cephalexin [Keflex] 500 mg PO Q12HR 3 Days #6 cap 11/16/21 Phenazopyridine [Pyridium] 100 mg PO TID PRN #9 tab 11/16/21 Amoxic-Pot Clav 875-125Mg 1 tab PO BID 5 Days #10 tab 11/02/22 [Augmentin 875-125] Phenazopyridine [Pyridium] 200 mg PO TID #6 tablet 11/02/22 Dicyclomine [Bentyl] 20 mg PO QID #15 tablet 07/25/24 Famotidine [Pepcid] 20 mg PO BID #14 tablet 07/25/24 Allergies Allergy/AdvReac Type Severity Reaction Status Date / Time erythromycin base Allergy Rash/Hives Verified 07/24/24 21:17 nitrofurantoin Allergy Rash/Hives Verified 07/24/24 21:17 [From Macrobid] nitrofurantoin Allergy Rash/Hives Verified 07/24/24 21:17 macrocrystalline [From Macrobid] Sulfa (Sulfonamide Allergy Rash/Hives Verified 07/24/24 21:17 Antibiotics) Review of Systems ROS Statement: Those systems with pertinent positive or pertinent negative responses have been documented in the HPI. ROS Other: All systems not noted in ROS Statement are negative. Constitutional: Denies: fever, chills Respiratory: Denies: cough, dyspnea Cardiovascular: Denies: chest pain, palpitations, edema Gastrointestinal: Reports: abdominal pain, nausea, vomiting. Denies: diarrhea, constipation, melena, hematochezia Genitourinary: Denies: dysuria, hematuria Musculoskeletal: Denies: back pain Skin: Denies: rash Neurological: Denies: headache, weakness, numbness Past Medical History Past Medical History: GERD/Reflux, Hyperlipidemia Additional Past Medical History / Comment(s): back pain, IBS chronic uti History of Any Multi-Drug Resistant Organisms: None Reported Past Surgical History: Appendectomy, Bladder Surgery, Hysterectomy, Tonsillectomy Additional Past Surgical History / Comment(s): rectocele Past Anesthesia/Blood Transfusion Reactions: No Reported Reaction Past Psychological History: Anxiety Smoking Status: Former smoker Past Alcohol Use History: Rare Past Drug Use History: None Reported - Past Family History Mother Family Medical History: Cancer General Exam Limitations: no limitations General appearance: alert, in no apparent distress Head exam: Present: atraumatic, normocephalic Eye exam: Present: normal appearance. Absent: scleral icterus, conjunctival injection ENT exam: Present: normal oropharynx Neck exam: Present: normal inspection Respiratory exam: Present: normal lung sounds bilaterally. Absent: respiratory distress, wheezes, rales, rhonchi, stridor, accessory muscle use Cardiovascular Exam: Present: regular rate, normal rhythm, normal heart sounds. Absent: systolic murmur, diastolic murmur, rubs, gallop GI/Abdominal exam: Present: soft. Absent: distended, tenderness, guarding, rebound, rigid, mass, pulsatile mass, hernia Extremities exam: Present: normal inspection, normal capillary refill. Absent: pedal edema, calf tenderness Back exam: Present: normal inspection. Absent: CVA tenderness (R), CVA tenderness (L) Neurological exam: Present: alert Skin exam: Present: warm, dry, intact, normal color. Absent: rash Course Vital Signs 07/24/24 07/25/24 21:11 01:57 Temperature 98.5 F 98.1 F Pulse Rate 83 62 Respiratory 16 16 Rate Blood Pressure 140/86 140/93 O2 Sat by Pulse 98 93 L Oximetry Medical Decision Making - Medical Decision Making Was pt. sent in by a medical professional or institution (, PA, GRAVURE PRINTING MACHINIST, urgent care, hospital, or halfway...) When possible be specific @ -[No] Did you speak to anyone other than the patient for history (EMS, parent, family, police, friend...)? What history was obtained from this source @ -[No] Did you review nursing and triage notes (agree or disagree)? Why? @ -[I reviewed and agree with nursing and triage notes] Were old charts reviewed (outside hosp., previous admission, EMS record, old EKG, old radiological studies, urgent care reports/EKG's, halfway records)? Report findings @ -[No old charts were reviewed] Differential Diagnosis (chest pain, altered mental status, abdominal pain women, abdominal pain men, vaginal bleeding, weakness, fever, dyspnea, syncope, headache, dizziness, GI bleed, back pain, seizure, CVA, palpatations, mental health, musculoskeletal)? @ -[Differential Abdominal Pain Women: Appendicitis, Cholecystitis, diverticulosis, ischemic bowel, pancreatitis, hepatitis, UTI, gastroenteritis, AAA, incarcerated hernia, bowel obstruction, constipation, inflammatory bowel, hepatitis, peptic ulcer disease, splenic infarction, perforated viscus, vulvitis, ovarian torsion, PID, kidney stone, placenta abruption, this is not meant to be an all-inclusive list EKG interpreted by me (3pts min.). @ -[As above] X-rays interpreted by me (1pt min.). @ -[None done] CT interpreted by me (1pt min.). @ -[None done] U/S interpreted by me (1pt. min.). @ -[None done] What testing was considered but not performed or refused? (CT, X-rays, U/S, labs)? Why? @ -[CT scan is considered, but the patient's exam is benign the workup un remarkable and she is feeling better. Discussed that should her symptoms recur or new symptoms develop she must return for CT What meds were considered but not given or refused? Why? @ -[None] Did you discuss the management of the patient with other professionals (professionals i.e. , PA, GRAVURE PRINTING MACHINIST, lab, RT, psych nurse, rn social services, pin or clip fastener, teacher, first officer, comp field case manager)? Give summary @ -[No] Was smoking cessation discussed for >3mins.? @ -[No] Was critical care preformed (if so, how long)? @ -[No] Were there social determinants of health that impacted care today? How? (Homelessness, low income, unemployed, alcoholism, drug addiction, transportation, low edu. Level, literacy, decrease access to med. care, intermediate, rehab)? @ -[No] Was there de-escalation of care discussed even if they declined (Discuss DNR or withdrawal of care, Hospice)? DNR status @ -[No] What co-morbidities impacted this encounter? (DM, HTN, Smoking, COPD, CAD, Cancer, CVA, ARF, Chemo, Hep., AIDS, mental health diagnosis, sleep apnea, morbid obesity)? @ -[None] Was patient admitted / discharged? Hospital course, mention meds given and route, prescriptions, significant lab abnormalities, going to OR and other pertinent info. @ -[This patient is 74-year-old woman here with abdominal pain. The patient's exam is benign and she does feel better on reevaluation after lab testing. At this point she feels well and would like to go home. We discussed appropriate further care and follow-up as well as return parameters. Undiagnosed new problem with uncertain prognosis? @ -[No] Drug Therapy requiring intensive monitoring for toxicity (Heparin, Nitro, Insulin, Cardizem)? @ -[No] Were any procedures done? @ -[No] Diagnosis/symptom? @ -[Acute abdominal pain Acute, or Chronic, or Acute on Chronic? @ -[Acute Uncomplicated (without systemic symptoms) or Complicated (systemic symptoms)? @ -[Uncomplicated Side effects of treatment? @ -[No] Exacerbation, Progression, or Severe Exacerbation? @ -[No] Poses a threat to life or bodily function? How? (Chest pain, [place], [place], pneumonia, PE, COPD, DKA, ARF, appy, cholecystitis, CVA, Diverticulitis, Homicidal, Suicidal, threat to staff... and all critical care pts) @ -[No] All treatments are based on ideal body weight as in ED triage - Lab Data Result diagrams: 07/24/24 22:06 07/24/24 22:06 Lab Results 07/24/24 07/24/24 07/24/24 Range/Units 22:06 22:06 22:06 WBC 8.2 (3.8-10.6) k/uL RBC 5.03 (3.80-5.40) m/uL Hgb 15.3 (11.4-16.0) gm/dL Hct 45.6 (34.0-46.0) % MCV 90.7 (80.0-100.0) fL MCH 30.4 (25.0-35.0) pg MCHC 33.6 (31.0-37.0) g/dL RDW 12.7 (11.5-15.5) % Plt Count 296 (150-450) k/uL MPV 7.1 Neutrophils % 74 % Lymphocytes % 18 % Monocytes % 5 % Eosinophils % 1 % Basophils % 1 % Neutrophils # 6.1 (1.3-7.7) k/uL Lymphocytes # 1.5 (1.0-4.8) k/uL Monocytes # 0.4 (0-1.0) k/uL Eosinophils # 0.1 (0-0.7) k/uL Basophils # 0.1 (0-0.2) k/uL PT 10.5 (10.0-12.5) sec INR 0.9 (<1.2) APTT 22.1 (22.0-30.0) sec Sodium 140 (137-145) mmol/L Potassium 4.1 (3.5-5.1) mmol/L Chloride 105 (98-107) mmol/L Carbon Dioxide 22 (22-30) mmol/L Anion Gap 13 mmol/L BUN 17 (7-17) mg/dL Creatinine 0.72 (0.52-1.04) mg/dL Est GFR (CKD-EPI)AfAm >90 (>60 ml/min/1.73 sqM) Est GFR (CKD-EPI)NonAf 85 (>60 ml/min/1.73 sqM) Glucose 106 H (74-99) mg/dL Plasma Lactic Acid Herbert (0.7-2.0) mmol/L Calcium 10.2 (8.4-10.2) mg/dL Total Bilirubin 1.0 (0.2-1.3) mg/dL AST 35 (14-36) U/L ALT 24 (4-34) U/L Alkaline Phosphatase 119 (38-126) U/L Troponin I (0.000-0.034) ng/mL Total Protein 7.5 (6.3-8.2) g/dL Albumin 4.9 (3.5-5.0) g/dL Amylase 75 (30-110) U/L Lipase 83 (23-300) U/L Urine Color Urine Appearance (Clear) Urine pH (5.0-8.0) Ur Specific [place] (1.001-1.035) Urine Protein (Negative) Urine Glucose (UA) (Negative) Urine Ketones (Negative) Urine Blood (Negative) Urine Nitrite (Negative) Urine Bilirubin (Negative) Urine Urobilinogen (<2.0) mg/dL Ur Leukocyte Esterase (Negative) Urine RBC (0-5) /hpf Urine WBC (0-5) /hpf Amorphous Sediment (None) /hpf Urine Mucus (None) /hpf 07/24/24 07/24/24 07/24/24 Range/Units 22:06 22:06 23:20 WBC (3.8-10.6) k/uL RBC (3.80-5.40) m/uL Hgb (11.4-16.0) gm/dL Hct (34.0-46.0) % MCV (80.0-100.0) fL MCH (25.0-35.0) pg MCHC (31.0-37.0) g/dL RDW (11.5-15.5) % Plt Count (150-450) k/uL MPV Neutrophils % % Lymphocytes % % Monocytes % % Eosinophils % % Basophils % % Neutrophils # (1.3-7.7) k/uL Lymphocytes # (1.0-4.8) k/uL Monocytes # (0-1.0) k/uL Eosinophils # (0-0.7) k/uL Basophils # (0-0.2) k/uL PT (10.0-12.5) sec INR (<1.2) APTT (22.0-30.0) sec Sodium (137-145) mmol/L Potassium (3.5-5.1) mmol/L Chloride (98-107) mmol/L Carbon Dioxide (22-30) mmol/L Anion Gap mmol/L BUN (7-17) mg/dL Creatinine (0.52-1.04) mg/dL Est GFR (CKD-EPI)AfAm (>60 ml/min/1.73 sqM) Est GFR (CKD-EPI)NonAf (>60 ml/min/1.73 sqM) Glucose (74-99) mg/dL Plasma Lactic Acid Herbert 1.6 (0.7-2.0) mmol/L Calcium (8.4-10.2) mg/dL Total Bilirubin (0.2-1.3) mg/dL AST (14-36) U/L ALT (4-34) U/L Alkaline Phosphatase (38-126) U/L Troponin I <0.012 (0.000-0.034) ng/mL Total Protein (6.3-8.2) g/dL Albumin (3.5-5.0) g/dL Amylase (30-110) U/L Lipase (23-300) U/L Urine Color Yellow Urine Appearance Clear (Clear) Urine pH 6.0 (5.0-8.0) Ur Specific [place] 1.022 (1.001-1.035) Urine Protein Trace H (Negative) Urine Glucose (UA) Negative (Negative) Urine Ketones 1+ H (Negative) Urine Blood Trace H (Negative) Urine Nitrite Negative (Negative) Urine Bilirubin Negative (Negative) Urine Urobilinogen <2.0 (<2.0) mg/dL Ur Leukocyte Esterase Negative (Negative) Urine RBC 2 (0-5) /hpf Urine WBC 3 (0-5) /hpf Amorphous Sediment Occasional H (None) /hpf Urine Mucus Occasional H (None) /hpf Disposition Clinical Impression: Abdominal pain Disposition: HOME SELF-CARE Condition: Good Instructions (If sedation given, give patient instructions): Abdominal Pain (ED) Prescriptions: Dicyclomine [Bentyl] 20 mg PO QID #15 tablet Famotidine [Pepcid] 20 mg PO BID #14 tablet Is patient prescribed a controlled substance at d/c from ED?: No Referrals: Benjamin Cotter MD [Primary Care Provider] - 1-2 days Wendy Lan MD [STAFF PHYSICIAN] - 1-2 days
[2024-07-24] MEDS: SODIUM CHLORIDE 0.9% 500 ML 500 ML IV STA (22:13)
[2024-07-24] MEDS: ONDANSETRON 4 MG/2 ML VIAL IVP STA (22:13)
[2024-07-24 22:27] LABS: Basophils # (A) 0.1 k/uL (0-0.2); Basophils % (A) 1 %; Eosinophils # (A) 0.1 k/uL (0-0.7); Eosinophils % (A) 1 %; HCT 45.6 % (34.0-46.0); HGB 15.3 gm/dL (11.4-16.0); Lymphocytes # (A) 1.5 k/uL (1.0-4.8); Lymphocytes % (A) 18 %; MCH 30.4 pg (25.0-35.0); MCHC 33.6 g/dL (31.0-37.0); MCV 90.7 fL (80.0-100.0); Mean Platelet Volume 7.1; Monocytes # (A) 0.4 k/uL (0-1.0); Monocytes % (A) 5 %; Neutrophils # (A) 6.1 k/uL (1.3-7.7); Neutrophils % (A) 74 %; Platelet Count 296 k/uL (150-450); RBC 5.03 m/uL (3.80-5.40); RDW 12.7 % (11.5-15.5); WBC 8.2 k/uL (3.8-10.6)
[2024-07-24 22:46] LABS: INR 0.9 (<1.2); Partial Thromboplastin Time 22.1 sec (22.0-30.0); Prothrombin Time 10.5 sec (10.0-12.5)
[2024-07-24 23:09] LABS: ALT 24 U/L (4-34); AST 35 U/L (14-36); African American GFR (CKD) >90 (>60 ml/min/1.73 sqM); Albumin 4.9 g/dL (3.5-5.0); Alkaline Phosphatase 119 U/L (38-126); Amylase 75 U/L (30-110); Anion Gap 13 mmol/L; Blood Urea Nitrogen 17 mg/dL (7-17); Calcium 10.2 mg/dL (8.4-10.2); Carbon Dioxide 22 mmol/L (22-30); Chloride 105 mmol/L (98-107); Glucose 106 mg/dL (74-99); Lipase 83 U/L (23-300); Non-African American GFR(CKD) 85 (>60 ml/min/1.73 sqM); Potassium 4.1 mmol/L (3.5-5.1); Sodium 140 mmol/L (137-145); Total Protein 7.5 g/dL (6.3-8.2)
[2024-07-25 00:20] LABS: Amorphous Sediment,Urine Occasional /hpf; Appearance,Urine Clear (Clear); Bilirubin,Urine Negative (Negative); Blood,Urine Trace (Negative); Color,Urine Yellow; Glucose,Urine (UA) Negative (Negative); Ketones,Urine 1+ (Negative); Leukocyte Esterase,Urine Negative (Negative); Mucus,Urine Occasional /hpf; Nitrite,Urine Negative (Negative); Protein,Urine Trace (Negative); RBC,Urine 2 /hpf (0-5); Specific Gravity,Urine 1.022 (1.001-1.035); Urobilinogen,Urine <2.0 mg/dL (<2.0); WBC,Urine 3 /hpf (0-5)
[2024-07-25] MEDS: MORPHINE SULFATE 4 MG/ML SYRINGE IV STA (01:13)
[2024-07-25] MEDS: SODIUM CHLORIDE 0.9% 1,000 ML IV ONE (01:14)
[2024-07-25 02:00] VITALS: BP 140/93; PULSE 62; TEMP 98.1
== END 2024-07-25 02:06 | disposition home or self-care (01) ==
LOC: EC 21:08
DX: R10.9 Unspecified abdominal pain (principal); Z87.891 Personal history of nicotine dependence; Z88.2 Allergy status to sulfonamides; Z88.1 Allergy status to other antibiotic agents; Z88.8 Allergy status to other drugs, medicaments and biological substances
CPT/HCPCS: 36415; 80053; 82150; 83605; 83690; 84484; 85025; 85610; 85730; 81001; 87086; 99284; 96374; 96361 ×2; 96375; J2270; J2405

== ENCOUNTER 2024-08-20 10:32 | Day surgery (SDC) | payer MEDICARE, BC ==
[2024-08-19 13:52] VITALS: BMI 22.9
[2024-08-20] MEDS: IV FLUID CONTINUATION 1,000 ML IV ONE (10:49)
[2024-08-20 11:01] VITALS: TEMP 98.2
[2024-08-20] MEDS: LACTATED RINGERS 1,000 ML IV SCH (11:03)
[2024-08-20] MEDS ORDERED: PROPOFOL 10 MG/ML 20 ML VIAL IV ONE (11:25)
[2024-08-20] MEDS ORDERED: LIDOCAINE 2% (PF) 20 MG/ML 5 ML VIAL ONE (11:25)
--- NOTE | 2024-08-20 11:35 | P.PCN ---
Date of Procedure: 08/20/24 Procedure(s) Performed: BRIEF HISTORY: Patient is a 74-year-old, pleasant, white female for an upper endoscopy as a part evaluation of longstanding history of GERD and worsening symptoms lately despite being on Protonix 40 mg daily. PROCEDURE PERFORMED: Esophagogastroduodenoscopy with biopsy. PREOPERATIVE DIAGNOSIS: Longstanding history of GERD. IV sedation per anesthesia. PROCEDURE: After informed consent was obtained, the patient was brought into the endoscopy unit. IV sedation was administered by Anesthesia under continuous monitoring. Initially the Olympus GIF-140 video endoscope was inserted into the mouth. Esophagus intubated without any difficulty. It was gradually advanced into the stomach and duodenum and carefully examined. The bulb and the second part of the duodenum appeared normal. The scope at this time was withdrawn to the stomach, adequately insufflated with air, and upon careful examination, mucosa of the antrum had patchy areas of erythema consistent with gastritis and biopsies were done from this area. Mucosa of the, body, cardia and the fundus appeared normal. The scope was then withdrawn into the esophagus. The GE junction was located at 39 cm from the incisors. Small hiatal hernia noted. The esophagus appeared normal. There were no erosions or ulcerations seen, biopsies were done from the distal esophagus and the patient tolerated the procedure well. IMPRESSION: 1. Mild antral gastritis. 2. Small hiatal hernia but no evidence of esophagitis or peptic ulcer disease. RECOMMENDATIONS: The findings of this examination were discussed with the patient as well as her family. She was advised to follow with the biopsy results. Continue with Protonix 40 mg twice daily to be taken half hour before breakfast identified and follow antireflux measures. Follow-up in the office in 3 to 4 weeks..
[2024-08-20 11:58] VITALS: BP 120/79; PULSE 68; RESP 16
== END 2024-08-20 12:20 | disposition home or self-care (01) ==
LOC: ORWHC2ENDO 10:32
PROVIDERS: ATTEND Internal Medicine Gastroenterology
DX: K21.00 Gastro-esophageal reflux disease with esophagitis, without bleeding (principal); K29.50 Unspecified chronic gastritis without bleeding; K44.9 Diaphragmatic hernia without obstruction or gangrene; E78.5 Hyperlipidemia, unspecified; Z79.899 Other long term (current) drug therapy; Z90.49 Acquired absence of other specified parts of digestive tract; Z90.89 Acquired absence of other organs; Z98.890 Other specified postprocedural states; Z90.710 Acquired absence of both cervix and uterus; Z88.1 Allergy status to other antibiotic agents; Z88.2 Allergy status to sulfonamides
CPT/HCPCS: 43239; J2704; J2003; 88305

== ENCOUNTER → 2024-09-10 | Outpatient (CLI) | payer MEDICARE, BC ==
[2024-09-10 10:29] LABS: Basophils # (A) 0.04 X 10*3/uL (0.00-0.10); Basophils % (A) 0.7 %; Eosinophils # (A) 0.22 X 10*3/uL (0.04-0.35); Eosinophils % (A) 3.8 %; HCT 40.3 % (37.2-46.3); HGB 12.7 g/dL (12.0-15.0); Lymphocytes # (A) 1.96 X 10*3/uL (0.90-5.00); Lymphocytes % (A) 34.2 %; MCH 28.8 pg (27.0-32.0); MCHC 31.5 g/dL (32.0-37.0); MCV 91.4 FL (80.0-97.0); Mean Platelet Volume 9.9 FL (9.5-12.2); Monocytes # (A) 0.36 X 10*3/uL (0.20-1.00); Monocytes % (A) 6.3 %; NRBC Per 100 WBC 0 X 10*3/uL (0.00-0.01); Neutrophils # (A) 3.13 X 10*3/uL (1.80-7.70); Neutrophils % (A) 54.7 %; Platelet Count 338 X 10*3/uL (140-440); RBC 4.41 X 10*6/uL (4.10-5.20); RDW 12.3 % (11.5-14.5); WBC 5.73 X 10*3/uL (4.50-10.00)
[2024-09-10 15:32] LABS: ALT 16 U/L (8-44); AST 27 U/L (13-35); Albumin 4.5 g/dL (3.8-4.9); Albumin/Globulin Ratio 2.14 Ratio (1.60-3.17); Alkaline Phosphatase 107 U/L (41-126); BUN/Creat Ratio 14.38 Ratio (12.00-20.00); Blood Urea Nitrogen 11.5 mg/dL (9.0-27.0); Calcium 9.7 mg/dL (8.7-10.3); Chloride 107 mmol/L (96-109); Chol/HDL Ratio 2.24 Ratio; Creatine Kinase 151 U/L (26-186); Globulin 2.1 g/dL (1.6-3.3); Glucose 90 mg/dL (70-110); LDL Cholesterol,Calculated 63.8 mg/dL (0.0-131.0); Potassium 4.4 mmol/L (3.5-5.5); Sodium 145 mmol/L (135-145); Total Bilirubin 0.5 mg/dL (0.3-1.2); Total Protein 6.6 g/dL (6.2-8.2); VLDL Calculation 17.56 mg/dL (5.00-40.00)
== END | disposition home or self-care (01) ==
LOC: LABWHC1 08:09
PROVIDERS: ATTEND Family Medicine
DX: E78.5 Hyperlipidemia, unspecified (principal); N39.0 Urinary tract infection, site not specified
CPT/HCPCS: 36415; 80053; 80061; 82550; 83036; 85025; 87086

== ENCOUNTER → 2024-10-18 | Outpatient (CLI) | payer MEDICARE, BC ==
--- NOTE | 2024-10-18 08:42 | MM ---
Reason for Exam: Screening (asymptomatic). Last screening mammogram was performed 12 month(s) ago. Patient History: Menarche at age 14. First Full-Term at age 19. Left ovary removed at age 54. Right ovary removed at age 54. Hysterectomy at age 54. Postmenopausal. Patient has history of breast feeding. Estrogen, starting at age 54 for 1 year, 5 months. Progesterone for 1 year, 5 months, from age 54 until age 55. 04/12/2020, High risk Core Biopsy on the right side. Risk Values: Aracelis 5 year model risk: 1.5%. NCI Lifetime model risk: 3.9%. Prior Study Comparison: 10/17/2023 Bilateral MG 3D screening mammo w/cad, [facility]. 10/21/2023 Left MG 3D work up w/cad LT, [facility]. 04/23/2024 Left MG 3D diag mammo w/cad LT, [facility]. Tissue Density: The breasts are heterogeneously dense, which may obscure small masses. Findings: Analyzed By CAD. Right breast biopsy clip. Right breast: There is no suspicious group of microcalcifications or new suspicious mass. Left breast: There is no suspicious group of microcalcifications or new suspicious mass. Overall Assessment: Negative, BI-RAD 1 Management: Screening Mammogram of both breasts in [address] [facility] will attempt to contact patient to return for supplemental views and ultrasound if indicated. Patient should continue monthly self-breast exams. A clinical breast exam by your physician is recommended on an annual basis. This exam should not preclude additional follow-up of suspicious palpable abnormalities. Note on Aracelis scores and lifetime risk: 1. A Aracelis score greater than 3% is considered moderate risk. If this is the case, consider specialist referral to assess eligibility for a risk reducing agent. 2. If overall lifetime risk for the development of breast cancer is 20% or higher, the patient may qualify for future screening with alternating mammogram and breast MRI. [facility], , 10/18/2024 8:39 AM. Electronically signed and approved by: James Hsieh DO
== END | disposition home or self-care (01) ==
LOC: RADMAMWWP 08:09
PROVIDERS: ATTEND Family Medicine
DX: Z12.31 Encounter for screening mammogram for malignant neoplasm of breast (principal); R92.333 Mammographic heterogeneous density, bilateral breasts; Z78.0 Asymptomatic menopausal state
CPT/HCPCS: 77063; 77067